=== PATIENT | female | born 1935 | race Caucasian/White ===

== ENCOUNTER 2019-05-05 10:36 | Day surgery (SDC) | payer MEDICARE, OTHER ==
[2019-05-05] VITALS (10 sets, daily range): BP systolic 100–137; BP diastolic 63–88
[~2019-05-05] VITALS: Ht 162.6 cm; Wt 49.8 kg
[2019-05-05] MEDS ORDERED: normal saline 1,000 ML IV SCH (10:55)
[2019-05-05] MEDS ORDERED: diphenhydrAMINE 25mg capsule PO PRN (10:55)
[2019-05-05] MEDS ORDERED: MULT-955 PO (11:01)
[2019-05-05 11:39] LABS: BASOPHILS # (AUTO) 0.1 X10'3 (0-0.2); EOSINOPHILS # (AUTO) 0.2 X10'3 (0-0.9); EOSINOPHILS % (AUTO) 2.6 % (0-6); HEMATOCRIT 39.2 % (35.0-45.0); HEMOGLOBIN 13.1 g/dl (12.0-16.0); LYMPHOCYTES # (AUTO) 1.2 X10'3 (1.1-4.8); MEAN CORPUSCULAR HEMOGLOBIN 32.3 PG (27.0-31.0); MEAN CORPUSCULAR HGB CONC 33.5 g/dL (33.0-36.5); MEAN CORPUSCULAR VOLUME 96.5 FL (78-98); MEAN PLATELET VOLUME 9.6 FL (7.4-10.4); MONOCYTES # (AUTO) 0.6 X10'3 (0-0.9); MONOCYTES % (AUTO) 9.3 % (2-12); NEUTROPHILS # (AUTO) 4.2 X10'3 (1.8-7.7); NEUTROPHILS % (AUTO) 67.1 % (42-75); PLATELET COUNT 157 X10'3 (140-440); RED BLOOD COUNT 4.06 X10'6 (4.20-5.60); RED CELL DISTRIBUTION WIDTH 14.1 % (11.5-14.5); WHITE BLOOD COUNT 6.3 X10'3 (4.5-11.0)
[2019-05-05 11:51] LABS: ALBUMIN 4.2 G/DL (3.4-5.0); ANION GAP 12 (8-16); BLOOD UREA NITROGEN 25 MG/DL (7-18); BUN/CREATININE RATIO 30.1 (6.6-38.0); CALCIUM 9.6 MG/DL (8.5-10.1); CHLORIDE 105 MMOL/L (99-107); CREATININE 0.83 MG/DL (0.40-0.90); GLUCOSE 90 MG/DL (70-104); MAGNESIUM 1.9 MG/DL (1.5-2.4); POTASSIUM 4.3 MMOL/L (3.5-5.1); SODIUM 142 MMOL/L (135-145); TOTAL CARBON DIOXIDE 25.4 MMOL/L (24-32); eGFR 66 ML/MIN
[2019-05-05] MEDS ORDERED: fentaNYL/PF 50MCG/1 ML 2ML syringe ONE ×2 (12:27→13:00)
[2019-05-05] MEDS ORDERED: midazolam 2 mg/2 ml injection ONE ×2 (12:27→13:00)
[2019-05-05] MEDS ORDERED: iohexol 350 MG/ML 50ML vial IV ONE (12:28)
[2019-05-05] MEDS ORDERED: LIDOcaine 1% 30ml preserv. free vial ONE (12:28)
[2019-05-05] MEDS ORDERED: iohexol 350MG/ML 100ml bottle IV ONE (12:28)
[2019-05-05] MEDS ORDERED: heparin 1,000unit/ml 10ml vial 10 ML ONE (13:18)
[2019-05-05] MEDS ORDERED: iohexol 350 MG/1 ML 200ml bottle ONE (13:36)
[2019-05-05] MEDS ORDERED: nitroGLYCERIN-Tridil 50MG/D5W 250 ML IV ONE (13:47)
[2019-05-05] MEDS ORDERED: verapamil 2.5 mg/ml inj IV ONE (13:50)
[2019-05-05] MEDS ORDERED: ticagrelor 90mg tablet ONE (13:55)
== END 2019-05-05 19:00 | disposition home or self-care (01) ==
LOC: SSTAY O 10:36
PROVIDERS: ATTEND Internal Medicine Cardiovascular Disease
DX: I35.0 Nonrheumatic aortic (valve) stenosis (principal); I25.10 Atherosclerotic heart disease of native coronary artery without angina pectoris; I05.0 Rheumatic mitral stenosis; Z87.891 Personal history of nicotine dependence; Z98.890 Other specified postprocedural states; Z72.89 Other problems related to lifestyle; Z79.899 Other long term (current) drug therapy
CPT/HCPCS: 36415; 80048; 83735; 85025; 85610; 93005; 93460; 99152; 99153; C1760; C1769; C1874; C1894; C9600; J1644; J2001; J2250; J3010; J7030; Q0163; Q9967; A4620; A6258; A6449; J3490

== ENCOUNTER 2020-02-06 08:23 | Day surgery (SDC) | payer MEDICARE ==
[~2020-02-06] VITALS: Ht 162.6 cm; Wt 49.2 kg
[2020-02-06] VITALS (15 sets, daily range): BP systolic 125–153; BP diastolic 68–81
[~2020-02-06 08:23] MED LIST: MULT-955 PO
[2020-02-06] MEDS ORDERED: normal saline 1,000 ML IV SCH ×2 (08:45→11:55)
[2020-02-06] MEDS ORDERED: diphenhydrAMINE 25mg capsule PO PRN (08:45)
[2020-02-06] MEDS ORDERED: LIDOcaine 1% (10mg/ml)w/preservative injection 20ml MDV ONE (09:03)
[2020-02-06] MEDS ORDERED: iohexol 350MG/ML 100ml bottle IV ONE ×2 (09:03→10:18)
[2020-02-06] MEDS ORDERED: heparin 1,000unit/ml 10ml vial 10 ML ONE (09:03)
[2020-02-06] MEDS ORDERED: midazolam 2 mg/2 ml injection ONE ×3 (09:03→10:07)
[2020-02-06] MEDS ORDERED: fentaNYL/PF 50MCG/1 ML 2ML syringe ONE ×3 (09:03→11:12)
[2020-02-06 09:15] LABS: BASOPHILS # (AUTO) 0.1 X10'3 (0-0.2); BASOPHILS % (AUTO) 1.3 % (0-1); EOSINOPHILS # (AUTO) 0.2 X10'3 (0-0.9); EOSINOPHILS % (AUTO) 3.3 % (0-6); HEMATOCRIT 39.8 % (35.0-45.0); HEMOGLOBIN 13.1 g/dl (12.0-16.0); LYMPHOCYTES # (AUTO) 1.6 X10'3 (1.1-4.8); LYMPHOCYTES % (AUTO) 23.4 % (21-51); MEAN CORPUSCULAR HGB CONC 32.9 g/dL (33.0-36.5); MEAN CORPUSCULAR VOLUME 100.1 FL (78-98); MEAN PLATELET VOLUME 8.9 FL (7.4-10.4); MONOCYTES # (AUTO) 0.7 X10'3 (0-0.9); MONOCYTES % (AUTO) 10.9 % (2-12); NEUTROPHILS # (AUTO) 4.2 X10'3 (1.8-7.7); NEUTROPHILS % (AUTO) 61.1 % (42-75); PLATELET COUNT 180 X10'3 (140-440); RED BLOOD COUNT 3.97 X10'6 (4.20-5.60); RED CELL DISTRIBUTION WIDTH 14.7 % (11.5-14.5); WHITE BLOOD COUNT 6.8 X10'3 (4.5-11.0)
[2020-02-06] MEDS ORDERED: CLOP75TA15 PO (09:20)
[2020-02-06] MEDS ORDERED: MEDR2.5T7 PO (09:21)
[2020-02-06 09:23] LABS: ALBUMIN 4.1 G/DL (3.4-5.0); ANION GAP 8 (8-16); BLOOD UREA NITROGEN 16 MG/DL (7-18); BUN/CREATININE RATIO 15.2 (6.6-38.0); CALCIUM 9.5 MG/DL (8.5-10.1); CHLORIDE 108 MMOL/L (99-107); CREATININE 1.05 MG/DL (0.40-0.90); GLUCOSE 95 MG/DL (70-104); MAGNESIUM 1.9 MG/DL (1.5-2.4); POTASSIUM 4.9 MMOL/L (3.5-5.1); SODIUM 144 MMOL/L (135-145); TOTAL CARBON DIOXIDE 27.6 MMOL/L (24-32); eGFR 50 ML/MIN
[2020-02-06] MEDS ORDERED: proCHLORperazine 10 MG/2 ml inj ONE (10:07)
[2020-02-06] MEDS ORDERED: clopidogrel 300mg tablet ONE (11:17)
[2020-02-06] MEDS ORDERED: nitroGLYCERIN 0.4mg SUBLingual tab SL ONE (11:28)
[2020-02-06] MEDS ORDERED: proCHLORperazine 10 MG/2 ml inj IV PRN (12:00)
[2020-02-06] MEDS ORDERED: HYDROcodone/acetaminophen 5mg/325mg tablet PO PRN (12:00)
[2020-02-06] MEDS ORDERED: HYDROcodone/acetaminophen 10/325mg tab PO PRN (12:00)
[2020-02-06] MEDS ORDERED: ondansetron/PF 4mg/2ml inj IV PRN (12:00)
== END 2020-02-06 17:50 | disposition home or self-care (01) ==
LOC: SSTAY O 08:23
PROVIDERS: ATTEND Internal Medicine Cardiovascular Disease
DX: I70.213 Atherosclerosis of native arteries of extremities with intermittent claudication, bilateral legs (principal); I25.10 Atherosclerotic heart disease of native coronary artery without angina pectoris; I48.0 Paroxysmal atrial fibrillation; I44.7 Left bundle-branch block, unspecified; I35.0 Nonrheumatic aortic (valve) stenosis; E78.5 Hyperlipidemia, unspecified; Z95.2 Presence of prosthetic heart valve; Z95.5 Presence of coronary angioplasty implant and graft; Z79.899 Other long term (current) drug therapy; Z79.82 Long term (current) use of aspirin; Z79.01 Long term (current) use of anticoagulants; Z98.890 Other specified postprocedural states; Z87.891 Personal history of nicotine dependence; Z72.89 Other problems related to lifestyle; Z82.3 Family history of stroke; Z80.41 Family history of malignant neoplasm of ovary
CPT/HCPCS: 36415; 37226; 75716; 80048; 83735; 85025; 85610; 93005; 99152; 99153; C1725; C1760; C1769; C1876; C1887; C1894; J0780; J1644; J2001; J2250; J3010; J7030; Q0163; Q9967; 36247; 75630; A4620; A6258; C2623

== ENCOUNTER → 2020-08-20 | Day surgery (SDC) | payer MEDICARE ==
[~2020-08-20] VITALS: Ht 175.3 cm; Wt 44.9 kg
[2020-08-20] VITALS (11 sets, daily range): BP systolic 124–138; BP diastolic 59–70
[~2020-08-20] MED LIST changes: +CLOP75TA15 PO; +ESTR-42 PO; +FLU VACC QS2020-21(6MOS UP)/PF 60 MCG/0.5 ML SYRINGE IMVAC ONE; +FURO-149 PO; +FURO40TA4 PO; +HYDROcodone/acetaminophen 10/325mg tab PO PRN; +HYDROcodone/acetaminophen 5mg/325mg tablet PO PRN; +IBUP-860 PO; +LIDOcaine 1% (10mg/ml)w/preservative injection 20ml MDV ONE; +POTA-82; +POTA20TA19 PO; +clopidogrel 300mg tablet ONE; +diphenhydrAMINE 25mg capsule PO PRN; +fentaNYL/PF 50MCG/1 ML 2ML syringe ONE; +heparin 1,000unit/ml 10ml vial 10 ML ONE; +iohexol 350MG/ML 100ml bottle IV ONE; +midazolam 1 mg/ML 2ml injection ONE; +normal saline 1,000 ML IV SCH; +ondansetron/PF 4mg/2ml inj IV PRN; +pneumococcal 23-VAL P-sac vacc 25 mcg/0.5ml vial IMVAC ONE; +proCHLORperazine 10 MG/2 ml inj IV PRN; +protamine sulfate 10mg/ml inj. ONE
[2020-08-20 09:35] LABS: BASOPHILS # (AUTO) 0.1 X10'3 (0-0.2); BASOPHILS % (AUTO) 1.4 % (0-1); EOSINOPHILS # (AUTO) 0.4 X10'3 (0-0.9); EOSINOPHILS % (AUTO) 5.4 % (0-6); HEMATOCRIT 36.2 % (35.0-45.0); HEMOGLOBIN 11.9 g/dl (12.0-16.0); LYMPHOCYTES # (AUTO) 1.7 X10'3 (1.1-4.8); LYMPHOCYTES % (AUTO) 24.2 % (21-51); MEAN CORPUSCULAR HEMOGLOBIN 31.7 PG (27.0-31.0); MEAN CORPUSCULAR HGB CONC 32.9 g/dL (33.0-36.5); MEAN CORPUSCULAR VOLUME 96.4 FL (78-98); MEAN PLATELET VOLUME 9.1 FL (7.4-10.4); MONOCYTES # (AUTO) 0.8 X10'3 (0-0.9); MONOCYTES % (AUTO) 11.2 % (2-12); NEUTROPHILS # (AUTO) 4.2 X10'3 (1.8-7.7); NEUTROPHILS % (AUTO) 57.8 % (42-75); PLATELET COUNT 197 X10'3 (140-440); RED BLOOD COUNT 3.75 X10'6 (4.20-5.60); RED CELL DISTRIBUTION WIDTH 14.5 % (11.5-14.5); WHITE BLOOD COUNT 7.2 X10'3 (4.5-11.0)
[2020-08-20 10:09] LABS: ALBUMIN 3.7 G/DL (3.4-5.0); ANION GAP 10 (8-16); BLOOD UREA NITROGEN 33 MG/DL (7-18); BUN/CREATININE RATIO 41.3 (6.6-38.0); CALCIUM 9.4 MG/DL (8.5-10.1); CHLORIDE 105 MMOL/L (99-107); GLUCOSE 86 MG/DL (70-104); SODIUM 142 MMOL/L (135-145); TOTAL CARBON DIOXIDE 26.6 MMOL/L (24-32); eGFR 69 ML/MIN
[2020-08-20 10:12] LABS: POTASSIUM 4.5 MMOL/L (3.5-5.1)
== END | disposition home or self-care (01) ==
LOC: SSTAY O 07:47
PROVIDERS: ATTEND Internal Medicine Cardiovascular Disease
DX: I70.202 Unspecified atherosclerosis of native arteries of extremities, left leg (principal); I48.91 Unspecified atrial fibrillation; I25.2 Old myocardial infarction; Z79.01 Long term (current) use of anticoagulants; Z98.890 Other specified postprocedural states; Z79.899 Other long term (current) drug therapy
CPT/HCPCS: 36415; 37226; 75710; 80048; 83735; 85025; 85610; 93005; 99152; 99153; C1725; C1760; C1769; C1876; C1894; J1644; J2001; J2250; J2720; J3010; Q9967; A4620; A6258; C2623

== ENCOUNTER 2020-12-17 06:21 | Day surgery (SDC) | payer MEDICARE ==
[~2020-12-17] VITALS: Ht 162.6 cm; Wt 51.4 kg
[2020-12-17] VITALS (11 sets, daily range): BP systolic 109–138; BP diastolic 42–61
[~2020-12-17 06:21] MED LIST changes: -ESTR-42 PO; -FLU VACC QS2020-21(6MOS UP)/PF 60 MCG/0.5 ML SYRINGE IMVAC ONE; -FURO40TA4 PO; -HYDROcodone/acetaminophen 10/325mg tab PO PRN; -HYDROcodone/acetaminophen 5mg/325mg tablet PO PRN; -IBUP-860 PO; -LIDOcaine 1% (10mg/ml)w/preservative injection 20ml MDV ONE; -MULT-955 PO; -POTA20TA19 PO; -clopidogrel 300mg tablet ONE; -diphenhydrAMINE 25mg capsule PO PRN; -fentaNYL/PF 50MCG/1 ML 2ML syringe ONE; -heparin 1,000unit/ml 10ml vial 10 ML ONE; -iohexol 350MG/ML 100ml bottle IV ONE; -midazolam 1 mg/ML 2ml injection ONE; -normal saline 1,000 ML IV SCH; -ondansetron/PF 4mg/2ml inj IV PRN; -pneumococcal 23-VAL P-sac vacc 25 mcg/0.5ml vial IMVAC ONE; -proCHLORperazine 10 MG/2 ml inj IV PRN; -protamine sulfate 10mg/ml inj. ONE
[2020-12-17] MEDS ORDERED: normal saline 1,000 ML IV SCH ×2 (06:55→09:20)
[2020-12-17] MEDS ORDERED: diphenhydrAMINE 25mg capsule PO PRN (06:55)
[2020-12-17] MEDS ORDERED: MULT-1085 PO (07:18)
[2020-12-17] MEDS ORDERED: RIVA2.5T PO (07:18)
[2020-12-17] MEDS ORDERED: ATOR40TA PO (07:18)
[2020-12-17 07:28] LABS: BASOPHILS # (AUTO) 0.1 X10'3 (0-0.2); BASOPHILS % (AUTO) 1.1 % (0-1); EOSINOPHILS # (AUTO) 0.4 X10'3 (0-0.9); EOSINOPHILS % (AUTO) 4.7 % (0-6); HEMATOCRIT 36.9 % (35.0-45.0); HEMOGLOBIN 12.2 g/dl (12.0-16.0); LYMPHOCYTES % (AUTO) 25.1 % (21-51); MEAN CORPUSCULAR HEMOGLOBIN 32.2 PG (27.0-31.0); MEAN CORPUSCULAR VOLUME 97.7 FL (78-98); MEAN PLATELET VOLUME 9.3 FL (7.4-10.4); MONOCYTES # (AUTO) 0.9 X10'3 (0-0.9); MONOCYTES % (AUTO) 10.8 % (2-12); NEUTROPHILS # (AUTO) 4.6 X10'3 (1.8-7.7); NEUTROPHILS % (AUTO) 58.3 % (42-75); PLATELET COUNT 179 X10'3 (140-440); RED BLOOD COUNT 3.78 X10'6 (4.20-5.60); WHITE BLOOD COUNT 7.9 X10'3 (4.5-11.0)
[2020-12-17 07:36] LABS: ALBUMIN 3.7 G/DL (3.4-5.0); ANION GAP 11 (8-16); BLOOD UREA NITROGEN 30 MG/DL (7-18); BUN/CREATININE RATIO 34.5 (6.6-38.0); CALCIUM 8.9 MG/DL (8.5-10.1); CHLORIDE 107 MMOL/L (99-107); CREATININE 0.87 MG/DL (0.40-0.90); GLUCOSE 88 MG/DL (70-104); MAGNESIUM 1.9 MG/DL (1.5-2.4); POTASSIUM 3.6 MMOL/L (3.5-5.1); SODIUM 143 MMOL/L (135-145); eGFR 62 ML/MIN
[2020-12-17] MEDS ORDERED: fentaNYL/PF 50MCG/1 ML 2ML syringe ONE (08:08)
[2020-12-17] MEDS ORDERED: midazolam 1 mg/ML 2ml injection ONE ×2 (08:08→08:30)
[2020-12-17] MEDS ORDERED: proCHLORperazine 10 MG/2 ml inj ONE (08:08)
[2020-12-17] MEDS ORDERED: heparin 1,000unit/ml 10ml vial 10 ML ONE (08:09)
[2020-12-17] MEDS ORDERED: iohexol 350 MG/1 ML 200ml bottle ONE (08:09)
[2020-12-17] MEDS ORDERED: LIDOcaine 1% (10mg/ml)w/preservative injection 20ml MDV ONE (08:09)
[2020-12-17] MEDS ORDERED: HYDROcodone/acetaminophen 10/325mg tab PO PRN (09:20)
[2020-12-17] MEDS ORDERED: HYDROcodone/acetaminophen 5mg/325mg tablet PO PRN (09:20)
[2020-12-17] MEDS ORDERED: ondansetron/PF 4mg/2ml inj IV PRN (09:20)
[2020-12-17] MEDS ORDERED: proCHLORperazine 10 MG/2 ml inj IV PRN (09:20)
== END 2020-12-17 13:50 | disposition home or self-care (01) ==
LOC: SSTAY O 06:21
PROVIDERS: ATTEND Internal Medicine Cardiovascular Disease
DX: I70.212 Atherosclerosis of native arteries of extremities with intermittent claudication, left leg (principal); I25.10 Atherosclerotic heart disease of native coronary artery without angina pectoris; E78.5 Hyperlipidemia, unspecified; I48.91 Unspecified atrial fibrillation; I05.0 Rheumatic mitral stenosis; I44.7 Left bundle-branch block, unspecified; Z87.891 Personal history of nicotine dependence; Z72.89 Other problems related to lifestyle; Z79.899 Other long term (current) drug therapy; Z79.01 Long term (current) use of anticoagulants; Z79.82 Long term (current) use of aspirin; Z98.890 Other specified postprocedural states; Z95.2 Presence of prosthetic heart valve; Z82.3 Family history of stroke; Z80.41 Family history of malignant neoplasm of ovary; Z83.6 Family history of other diseases of the respiratory system
CPT/HCPCS: 36415; 37224; 75716; 80048; 83735; 85025; 85610; 93005; 99152; 99153; C1760; C1769; C1894; J0780; J1644; J2001; J2250; J3010; Q0163; Q9967; 36200; 37220; A4620; A6258; C2623

== ENCOUNTER 2021-05-12 17:42 | Emergency (ER) | payer MEDICARE ==
[~2021-05-12] VITALS: Ht 162.6 cm; Wt 53.6 kg
[~2021-05-12 17:42] MED LIST changes: +AMIO200T67 PO; +ASPI-1265 PO; +ATOR40TA PO; +CARCD120C PO; +MULT-1085 PO; -POTA-82; +POTA-82 PO; +RIVA2.5T PO
[2021-05-12 18:28] LABS: BASOPHILS # (AUTO) 0.1 X10'3 (0-0.2); BASOPHILS % (AUTO) 0.9 % (0-1); EOSINOPHILS # (AUTO) 0.1 X10'3 (0-0.9); EOSINOPHILS % (AUTO) 1.5 % (0-6); HEMATOCRIT 33.5 % (35.0-45.0); HEMOGLOBIN 11.1 g/dl (12.0-16.0); LYMPHOCYTES # (AUTO) 1.7 X10'3 (1.1-4.8); LYMPHOCYTES % (AUTO) 20.7 % (21-51); MEAN CORPUSCULAR HEMOGLOBIN 31.3 PG (27.0-31.0); MEAN CORPUSCULAR HGB CONC 33.1 g/dL (33.0-36.5); MEAN CORPUSCULAR VOLUME 94.5 FL (78-98); MEAN PLATELET VOLUME 9.8 FL (7.4-10.4); MONOCYTES # (AUTO) 0.9 X10'3 (0-0.9); MONOCYTES % (AUTO) 10.9 % (2-12); NEUTROPHILS # (AUTO) 5.5 X10'3 (1.8-7.7); PLATELET COUNT 183 X10'3 (140-440); RED BLOOD COUNT 3.55 X10'6 (4.20-5.60); RED CELL DISTRIBUTION WIDTH 14.8 % (11.5-14.5); WHITE BLOOD COUNT 8.4 X10'3 (4.5-11.0)
[2021-05-12 18:46] LABS: ALANINE AMINOTRANSFERASE 58 U/L (12-78); ALBUMIN 4.1 G/DL (3.4-5.0); ALBUMIN/GLOBULIN RATIO 1.2 (1.1-1.5); ALKALINE PHOSPHATASE 89 IU/L (46-116); ANION GAP 11 (8-16); ASPARTATE AMINO TRANSFERASE 44 U/L (10-37); BILIRUBIN,TOTAL 0.6 MG/DL (0.1-1.0); BLOOD UREA NITROGEN 59 MG/DL (7-18); BUN/CREATININE RATIO 37.3 (6.6-38.0); CALCIUM 8.9 MG/DL (8.5-10.1); CHLORIDE 104 MMOL/L (99-107); CREATININE 1.58 MG/DL (0.40-0.90); GLUCOSE 104 MG/DL (70-104); POTASSIUM 4.5 MMOL/L (3.5-5.1); SODIUM 140 MMOL/L (135-145); TOTAL PROTEIN 7.4 G/DL (6.4-8.2); eGFR 31 ML/MIN
[2021-05-12 18:53] LABS: MAGNESIUM 2.4 MG/DL (1.5-2.4)
[2021-05-12] MEDS ORDERED: normal saline 1000ml 1,000 ML IV ONE (19:00)
[2021-05-12 20:58] VITALS: BP 124/53
[2021-05-13] MEDS ORDERED: DILT120C88 PO (16:38)
[2021-05-13] MEDS ORDERED: AMIO200T61 PO (16:38)
== END 2021-05-12 20:59 | disposition home or self-care (01) ==
LOC: ER 17:43
DX: R55 Syncope and collapse (principal); R42 Dizziness and giddiness; R00.1 Bradycardia, unspecified; Z90.89 Acquired absence of other organs; Z79.82 Long term (current) use of aspirin; Z79.899 Other long term (current) drug therapy
CPT/HCPCS: 36415; 80053; 83735; 83880; 84443; 84484; 85025; 93005; 96360; 99284; J7030

== ENCOUNTER 2022-04-01 13:20 | Inpatient (IN) | payer MEDICARE ==
[~2022-04-01] VITALS: Ht 162.6 cm; Wt 47.7 kg
[~2022-04-01 13:20] MED LIST changes: +ALBU8.5H17 IH; +AMIO200T61 PO; -AMIO200T67 PO; -ASPI-1265 PO; -ATOR40TA PO; +ATOR40TA72 PO; -CARCD120C PO; +CEFU500T66 PO; +DEXL30CA3 PO; +FERR325T7 PO; -FURO-149 PO; +FURO40TA4 PO; +LISI2.5T14 PO; +METO5TAB7 PO; -MULT-1085 PO; +PREG75CA75 PO; -RIVA2.5T PO; +UBIQ100C2 PO
[2022-04-01 14:31] LABS: BASOPHILS # (AUTO) 0.1 X10'3 (0-0.2); BASOPHILS % (AUTO) 0.4 % (0-1); EOSINOPHILS % (AUTO) 0.1 % (0-6); HEMATOCRIT 40.1 % (35.0-45.0); HEMOGLOBIN 13.6 g/dl (12.0-16.0); LYMPHOCYTES # (AUTO) 0.4 X10'3 (1.1-4.8); LYMPHOCYTES % (AUTO) 2.3 % (21-51); MEAN CORPUSCULAR HEMOGLOBIN 32.7 PG (27.0-31.0); MEAN CORPUSCULAR HGB CONC 33.8 g/dL (33.0-36.5); MEAN CORPUSCULAR VOLUME 96.5 FL (78-98); MEAN PLATELET VOLUME 8.7 FL (7.4-10.4); MONOCYTES # (AUTO) 1.7 X10'3 (0-0.9); MONOCYTES % (AUTO) 9.3 % (2-12); NEUTROPHILS # (AUTO) 16.5 X10'3 (1.8-7.7); NEUTROPHILS % (AUTO) 87.9 % (42-75); PLATELET COUNT 231 X10'3 (140-440); RED BLOOD COUNT 4.16 X10'6 (4.20-5.60); RED CELL DISTRIBUTION WIDTH 13.9 % (11.5-14.5); WHITE BLOOD COUNT 18.7 X10'3 (4.5-11.0)
[2022-04-01] MEDS ORDERED: CefTRIAXone/D5W-Rocephin 1gm 50 ML IV ONE (14:45)
[2022-04-01] MEDS ORDERED: azithromycin/NS 500mg/250ml 250 ML IV ONE (14:50)
[2022-04-01] MEDS ORDERED: normal saline 1000ML IV soln IVB ONE ×2 (14:55→15:25)
[2022-04-01 14:57] LABS: D-DIMER 2.09 MG/L FEU (0-0.50)
[2022-04-01 15:08] LABS: ALANINE AMINOTRANSFERASE 96 U/L (12-78); ALBUMIN 3.6 G/DL (3.4-5.0); ALBUMIN/GLOBULIN RATIO 0.8 (1.1-1.5); ALKALINE PHOSPHATASE 92 IU/L (46-116); ANION GAP 15 (8-16); ASPARTATE AMINO TRANSFERASE 114 U/L (10-37); BILIRUBIN,TOTAL 1.2 MG/DL (0.1-1.0); BLOOD UREA NITROGEN 44 MG/DL (7-18); CALCIUM 9.3 MG/DL (8.5-10.1); CHLORIDE 92 MMOL/L (99-107); CREATININE 1.63 MG/DL (0.40-0.90); GLUCOSE 107 MG/DL (70-104); SODIUM 135 MMOL/L (135-145); TOTAL PROTEIN 7.9 G/DL (6.4-8.2); eGFR 30 ML/MIN
[2022-04-01 15:10] LABS: POTASSIUM 2.8 MMOL/L (3.5-5.1)
[2022-04-01] MEDS ORDERED: potassium Cl 20 mEq SR tablet PO STA (15:18)
[2022-04-01] MEDS ORDERED: potassium CL 10mEq/100ml bag 100 ML IV ONE (15:20)
[2022-04-01 15:41] LABS: MAGNESIUM 2.1 MG/DL (1.5-2.4)
[2022-04-01] MEDS ORDERED: magnesium Cl slow-release 64mg tablet PO PRN (16:45)
[2022-04-01] MEDS ORDERED: magnesium 4gm in 100ml NS 100 ML IV PRN (16:45)
[2022-04-01] MEDS ORDERED: POTASSIUM BICARB 20meq eff tab 20 MEQ TABLET.EFF PO PRN (16:45)
[2022-04-01] MEDS ORDERED: mag hydrox/Alum hydrox/simeth 30ml oral suspension PO PRN (16:45)
[2022-04-01] MEDS ORDERED: magnesium hydroxide 30ml (MOM) UD suspension PO PRN (16:45)
[2022-04-01] MEDS ORDERED: acetaminophen 325mg tablet PO PRN (16:45)
[2022-04-01] MEDS ORDERED: magnesium 2GM in 50ml NS 50 ML IV PRN (16:45)
[2022-04-01] MEDS ORDERED: PERFLUTREN PROTEIN-A MICROSPHR (Optison) 0.22 MG/ML 3ML VIAL IV ONE (16:45)
[2022-04-01] MEDS ORDERED: potassium CL 10mEq/100ml bag 100 ML IV PRN (16:45)
[2022-04-01 18:06] LABS: POTASSIUM 2.4 MMOL/L (3.5-5.1)
[2022-04-01] MEDS: albuterol 2.5 MG/3 ML nebule NEB SCH ×2 (19:59→23:36)
[2022-04-01] MEDS: K and/or MAG REPLACEMENT MC SCH (20:00)
[2022-04-01] MEDS: docusate sod 100mg capsule PO SCH (20:00)
[2022-04-01] MEDS: furosemide 10 MG/1 ML 10ml inj IV SCH (20:00)
[2022-04-01] MEDS: enoxaparin 30mg/0.3ml syringe SQ SCH (20:46)
[2022-04-02] VITALS (7 sets, daily range): BP systolic 80–115; BP diastolic 36–58
[2022-04-02] MEDS ORDERED: morphine 2 MG/ML inj. syringe IV PRN (01:00)
[2022-04-02] MEDS ORDERED: HYDROcodone/acetaminophen 5mg/325mg tablet PO PRN (01:00)
--- NOTE | 2022-04-02 01:45 | NUR ---
ivp given by er charge
[2022-04-02] MEDS: albuterol 2.5 MG/3 ML nebule NEB SCH ×6 (03:24→23:40)
[2022-04-02 07:29] LABS: BASOPHILS # (AUTO) 0.1 X10'3 (0-0.2); BASOPHILS % (AUTO) 0.3 % (0-1); EOSINOPHILS % (AUTO) 0 % (0-6); HEMATOCRIT 36.2 % (35.0-45.0); HEMOGLOBIN 12.3 g/dl (12.0-16.0); LYMPHOCYTES % (AUTO) 5.5 % (21-51); MEAN CORPUSCULAR HGB CONC 34.1 g/dL (33.0-36.5); MEAN CORPUSCULAR VOLUME 96.9 FL (78-98); MEAN PLATELET VOLUME 8.8 FL (7.4-10.4); MONOCYTES # (AUTO) 2.1 X10'3 (0-0.9); MONOCYTES % (AUTO) 11.6 % (2-12); NEUTROPHILS # (AUTO) 15.2 X10'3 (1.8-7.7); NEUTROPHILS % (AUTO) 82.6 % (42-75); PLATELET COUNT 175 X10'3 (140-440); RED BLOOD COUNT 3.74 X10'6 (4.20-5.60); RED CELL DISTRIBUTION WIDTH 14.3 % (11.5-14.5); WHITE BLOOD COUNT 18.4 X10'3 (4.5-11.0)
[2022-04-02 07:33] LABS: ALBUMIN 2.7 G/DL (3.4-5.0); ANION GAP 9 (8-16); BLOOD UREA NITROGEN 44 MG/DL (7-18); BUN/CREATININE RATIO 28.8 (6.6-38.0); CALCIUM 8.5 MG/DL (8.5-10.1); CHLORIDE 98 MMOL/L (99-107); CREATININE 1.53 MG/DL (0.40-0.90); GLUCOSE 100 MG/DL (70-104); MAGNESIUM 2.2 MG/DL (1.5-2.4); POTASSIUM 3.1 MMOL/L (3.5-5.1); SODIUM 136 MMOL/L (135-145); TOTAL CARBON DIOXIDE 29.2 MMOL/L (24-32); eGFR 32 ML/MIN
[2022-04-02] MEDS: docusate sod 100mg capsule PO SCH ×3 (07:50→19:47)
[2022-04-02] MEDS: furosemide 10 MG/1 ML 10ml inj IV SCH ×2 (07:50→19:36)
[2022-04-02] MEDS: azithromycin 250mg tablet PO SCH (07:50)
[2022-04-02] MEDS: amiodarone 200mg tablet PO SCH (07:50)
[2022-04-02] MEDS: enoxaparin 30mg/0.3ml syringe SQ SCH (07:51)
[2022-04-02 07:59] LABS: PLATELET ESTIMATE NORMAL; TOTAL CELLS COUNTED 100
[2022-04-02] MEDS: K and/or MAG REPLACEMENT MC SCH ×2 (08:00→20:00)
--- NOTE | 2022-04-02 08:58 | NUR ---
Noted pt w/ low BMI for geriatric age though current wt is fairly consistent w/ weights from over the last couple of years. Pt likely maintains this low body weight. Has historically eaten relatively well on prior admits. Addendum: 04/02/22 at [address] Amended: Links added.
[2022-04-02] MEDS: POTASSIUM BICARB 20meq eff tab 20 MEQ TABLET.EFF PO PRN ×3 (12:20→22:23)
[2022-04-02] MEDS: prednisone 10mg tablet PO SCH (12:21)
[2022-04-02] MEDS: HYDROcodone/acetaminophen 5mg/325mg tablet PO PRN (12:21)
[2022-04-02] MEDS ORDERED: FLU VACC QS2022-23(6MOS UP)/PF 60 MCG/0.5 ML SYRINGE IMVAC ONE (13:45)
[2022-04-02] MEDS: lisinopril 2.5mg tablet PO SCH (14:37)
[2022-04-02] MEDS: CefTRIAXone 2gm/D5W 50ml BAG 50 ML IV SCH (14:37)
--- NOTE | 2022-04-02 18:28 | NUR ---
Problems reprioritized. Patient report given, questions answered & plan of care reviewed with COLT Kapoor.
[2022-04-02] MEDS: potassium Cl 20 mEq SR tablet PO SCH ×2 (19:23→19:48)
[2022-04-02] MEDS: ferrous sulfate 325mg tablet PO SCH (19:24)
[2022-04-02] MEDS: atorvastatin 20mg tablet PO SCH (20:12)
--- NOTE | 2022-04-02 22:51 | NUR ---
pt in rm 3026b whit swenson has a b/p of 85/36 with automatic measurement and 82/40 with manual. leke pcu 5441.new order to give 500 iv fluid bolus . same commenced.
[2022-04-03] VITALS (25 sets, daily range): BP systolic 71–91; BP diastolic 32–50
[2022-04-03] MEDS ORDERED: DOBUTamine-DoBUTrex 500mg/D5W 250 ML IV SCH
--- NOTE | 2022-04-03 | NUR ---
pt in rm 3021e whit swenson whom you ordered iv 500 bolus for b/p of 82/40 has b/p of 80/40 after the bolus.shamar puc [id number]. Dobutamine drip ordered and placed in the emar by the MD.
[2022-04-03] MEDS: DOBUTamine-DoBUTrex 500mg/D5W 250 ML IV SCH (00:47)
[2022-04-03] MEDS ORDERED: guaiFENesin 200 MG/10 ML oral syrup UD cup PO PRN (02:55)
--- NOTE | 2022-04-03 03:02 | NUR ---
notified of pts b/p below the 90s.order to increased pts dobutanin rate from 2.846mg to 4.00mg.
--- NOTE | 2022-04-03 03:06 | NUR ---
notified of pts request for cough syrup for cough.New order to give Robitussin oral syrup prn.
[2022-04-03] MEDS: HYDROcodone/acetaminophen 5mg/325mg tablet PO PRN ×2 (03:40→21:56)
[2022-04-03] MEDS: albuterol 2.5 MG/3 ML nebule NEB SCH ×6 (03:42→23:48)
--- NOTE | 2022-04-03 05:09 | NUR ---
pt whit swenson rm 3020s who is on dobutamin drip has sustained systolic b/p that ranges from 75 to 77 with diastolic in the 30s. HR is in the 80s MD ordered proAmatin tab 10mg once ,same placed in the emar by .
[2022-04-03] MEDS ORDERED: midodrine 5mg tablet PO ONE (05:10)
[2022-04-03 05:59] LABS: ALBUMIN 2.4 G/DL (3.4-5.0); ANION GAP 7 (8-16); BLOOD UREA NITROGEN 64 MG/DL (7-18); BUN/CREATININE RATIO 23.4 (6.6-38.0); CALCIUM 8.5 MG/DL (8.5-10.1); CHLORIDE 95 MMOL/L (99-107); CREATININE 2.74 MG/DL (0.40-0.90); GLUCOSE 117 MG/DL (70-104); MAGNESIUM 2.2 MG/DL (1.5-2.4); POTASSIUM 4.3 MMOL/L (3.5-5.1); SODIUM 133 MMOL/L (135-145); TOTAL CARBON DIOXIDE 30.6 MMOL/L (24-32); eGFR 16 ML/MIN
[2022-04-03 06:02] LABS: BASOPHILS # (AUTO) 0.1 X10'3 (0-0.2); BASOPHILS % (AUTO) 0.5 % (0-1); EOSINOPHILS % (AUTO) 0.1 % (0-6); HEMATOCRIT 32.3 % (35.0-45.0); HEMOGLOBIN 10.7 g/dl (12.0-16.0); LYMPHOCYTES # (AUTO) 1.1 X10'3 (1.1-4.8); LYMPHOCYTES % (AUTO) 6.2 % (21-51); MEAN CORPUSCULAR HEMOGLOBIN 32.4 PG (27.0-31.0); MEAN CORPUSCULAR HGB CONC 33.3 g/dL (33.0-36.5); MEAN CORPUSCULAR VOLUME 97.4 FL (78-98); MEAN PLATELET VOLUME 9.5 FL (7.4-10.4); MONOCYTES # (AUTO) 1.8 X10'3 (0-0.9); MONOCYTES % (AUTO) 10.3 % (2-12); NEUTROPHILS # (AUTO) 14.1 X10'3 (1.8-7.7); NEUTROPHILS % (AUTO) 82.9 % (42-75); PLATELET COUNT 176 X10'3 (140-440); RED BLOOD COUNT 3.31 X10'6 (4.20-5.60); WHITE BLOOD COUNT 17.1 X10'3 (4.5-11.0)
[2022-04-03] MEDS: furosemide 10 MG/1 ML 10ml inj IV SCH ×2 (07:52→20:00)
[2022-04-03] MEDS: clopidogrel 75mg tablet PO SCH (07:53)
[2022-04-03] MEDS: azithromycin 250mg tablet PO SCH (07:53)
[2022-04-03] MEDS: potassium Cl 20 mEq SR tablet PO SCH ×2 (07:53→20:00)
[2022-04-03] MEDS: amiodarone 200mg tablet PO SCH (07:54)
[2022-04-03] MEDS: docusate sod 100mg capsule PO SCH ×2 (07:54→20:00)
[2022-04-03] MEDS: prednisone 10mg tablet PO SCH (07:55)
[2022-04-03] MEDS: lisinopril 2.5mg tablet PO SCH (07:55)
[2022-04-03] MEDS: pantoprazole 40mg Tablet.DR PO SCH (07:56)
[2022-04-03] MEDS: enoxaparin 30mg/0.3ml syringe SQ SCH (07:56)
[2022-04-03] MEDS: ferrous sulfate 325mg tablet PO SCH ×2 (07:56→21:10)
[2022-04-03] MEDS: K and/or MAG REPLACEMENT MC SCH ×2 (08:00→20:00)
--- NOTE | 2022-04-03 08:53 | NUR ---
Initial: Pt admitted w/ CHF exacerbation and sepsis secondary to PNA per EMR. Currently on Heart Healthy diet w/ avg intake 50% x 3 meals which is consistent w/ how pt typically eats on previous admits. Pt can benefit from Ensure Enlive BID to assist w/ meeting increased needs. No BM documented this admit, receiving routine colace. Will continue to monitor. Recs; 1. Consider Regular diet 2. Ensure Enlive BIDBD; pending MD verification 3. Bowel care per rx 4. Weekly wts Addendum: 04/03/22 at [address] Amended: Links added.
[2022-04-03] MEDS ORDERED: normal saline 500ml IV soln 500 ML IV ONE ×2 (09:00→13:40)
[2022-04-03] MEDS: normal saline 1000ml 1,000 ML IV SCH (11:33)
[2022-04-03] MEDS: ondansetron/PF 4mg/2ml inj IV PRN (11:33)
[2022-04-03] MEDS: CefTRIAXone 2gm/D5W 50ml BAG 50 ML IV SCH (13:25)
--- NOTE | 2022-04-03 13:37 | NUR ---
PAGER ID: [phone] MESSAGE: PCU 3026B [address]; negin ROJAS BP still running low: 74/36 HR:76 just now, pt was nauseous earlier but resolved esthela matos. thanks michaela [phone]
--- NOTE | 2022-04-03 15:40 | NUR ---
pt to nuc med on monitor with RN, pt is on dobutamine gtt, GCS 15, alert and oriented x3, resp even and unlabored,
[2022-04-03] MEDS: lactose-reduced food (Ensure Enlive) - 237ml bottle PO SCH (17:30)
--- NOTE | 2022-04-03 18:30 | NUR ---
Patient in room U 3026. I have received report from COLT Villalobos and had the opportunity to ask questions and assume patient care. Patient sitting up in bed eating dinner.
--- NOTE | 2022-04-03 19:08 | NUR ---
Problems reprioritized. Patient report given, questions answered & plan of care reviewed with COLT Olivo.
[2022-04-03] MEDS: atorvastatin 20mg tablet PO SCH (21:09)
[2022-04-03] MEDS: POTASSIUM BICARB 20meq eff tab 20 MEQ TABLET.EFF PO PRN (21:16)
[2022-04-04] VITALS (14 sets, daily range): BP systolic 77–105; BP diastolic 36–70
[2022-04-04] MEDS: albuterol 2.5 MG/3 ML nebule NEB SCH ×6 (03:08→23:35)
[2022-04-04] MEDS: ondansetron/PF 4mg/2ml inj IV PRN (03:15)
[2022-04-04] MEDS: normal saline 1000ml 1,000 ML IV SCH ×2 (03:19→14:31)
--- NOTE | 2022-04-04 06:00 | NUR ---
Cld Dr. Gracia as patient is nauseous and vomiting. Per MD give Compzine 10mg IV now
[2022-04-04] MEDS ORDERED: proCHLORperazine 10 MG/2 ml inj IV ONE (06:10)
--- NOTE | 2022-04-04 06:33 | NUR ---
Problems reprioritized. Patient report given, questions answered & plan of care reviewed with COLT Villalobos.
[2022-04-04 06:50] LABS: BASOPHILS % (AUTO) 0.4 % (0-1); EOSINOPHILS % (AUTO) 0.1 % (0-6); HEMATOCRIT 32.3 % (35.0-45.0); HEMOGLOBIN 10.6 g/dl (12.0-16.0); LYMPHOCYTES # (AUTO) 0.8 X10'3 (1.1-4.8); LYMPHOCYTES % (AUTO) 7.1 % (21-51); MEAN CORPUSCULAR HEMOGLOBIN 32.1 PG (27.0-31.0); MEAN CORPUSCULAR HGB CONC 32.8 g/dL (33.0-36.5); MEAN CORPUSCULAR VOLUME 97.8 FL (78-98); MEAN PLATELET VOLUME 9.9 FL (7.4-10.4); MONOCYTES # (AUTO) 1.2 X10'3 (0-0.9); MONOCYTES % (AUTO) 10.3 % (2-12); NEUTROPHILS # (AUTO) 9.4 X10'3 (1.8-7.7); NEUTROPHILS % (AUTO) 82.1 % (42-75); PLATELET COUNT 176 X10'3 (140-440); RED CELL DISTRIBUTION WIDTH 14.5 % (11.5-14.5); WHITE BLOOD COUNT 11.5 X10'3 (4.5-11.0)
[2022-04-04 07:20] LABS: ALBUMIN 2.5 G/DL (3.4-5.0); ANION GAP 9 (8-16); BLOOD UREA NITROGEN 75 MG/DL (7-18); BUN/CREATININE RATIO 23.3 (6.6-38.0); CALCIUM 8.6 MG/DL (8.5-10.1); CHLORIDE 95 MMOL/L (99-107); CREATININE 3.22 MG/DL (0.40-0.90); GLUCOSE 107 MG/DL (70-104); MAGNESIUM 2.5 MG/DL (1.5-2.4); POTASSIUM 5.4 MMOL/L (3.5-5.1); SODIUM 130 MMOL/L (135-145); TOTAL CARBON DIOXIDE 26.5 MMOL/L (24-32); eGFR 14 ML/MIN
[2022-04-04] MEDS: lactose-reduced food (Ensure Enlive) - 237ml bottle PO SCH ×2 (07:30→18:01)
[2022-04-04] MEDS: potassium Cl 20 mEq SR tablet PO SCH ×2 (08:00→20:00)
[2022-04-04] MEDS: furosemide 10 MG/1 ML 10ml inj IV SCH (08:00)
[2022-04-04] MEDS: docusate sod 100mg capsule PO SCH ×2 (08:00→20:00)
[2022-04-04] MEDS: K and/or MAG REPLACEMENT MC SCH (08:00)
[2022-04-04] MEDS: enoxaparin 30mg/0.3ml syringe SQ SCH (08:32)
[2022-04-04] MEDS: pantoprazole 40mg Tablet.DR PO SCH (09:46)
[2022-04-04] MEDS: amiodarone 200mg tablet PO SCH (09:46)
[2022-04-04] MEDS: prednisone 10mg tablet PO SCH (09:46)
[2022-04-04] MEDS: clopidogrel 75mg tablet PO SCH (09:47)
[2022-04-04] MEDS: ferrous sulfate 325mg tablet PO SCH ×2 (09:47→20:45)
[2022-04-04] MEDS: azithromycin 250mg tablet PO SCH (09:47)
[2022-04-04] MEDS ORDERED: metolazone 2.5mg tablet PO SCH (11:35)
--- NOTE | 2022-04-04 13:55 | NUR ---
PT TO CT ON MONITOR WITH RN, PT IS ON DOBUTAMINE GTT, PT IS ALERT AND ORIENTED X3, ABLE TO TRANSFER SELF WITH MIN ASSIST FROM BED TO WHEELCHAIR.
--- NOTE | 2022-04-04 14:15 | NUR ---
PT BACK TO PCU, REPORT TO PRIMARY RN
[2022-04-04] MEDS: CefTRIAXone 2gm/D5W 50ml BAG 50 ML IV SCH (15:43)
--- NOTE | 2022-04-04 18:48 | NUR ---
Problems reprioritized. Patient report given, questions answered & plan of care reviewed with COLT Day.
[2022-04-04] MEDS: atorvastatin 20mg tablet PO SCH (20:46)
[2022-04-04] MEDS: DOBUTamine-DoBUTrex 500mg/D5W 250 ML IV SCH (20:52)
[2022-04-05] VITALS (7 sets, daily range): BP systolic 102–141; BP diastolic 53–80
[2022-04-05] MEDS: HYDROcodone/acetaminophen 5mg/325mg tablet PO PRN ×2 (00:27→15:26)
[2022-04-05] MEDS: normal saline 1000ml 1,000 ML IV SCH ×2 (00:32→09:35)
[2022-04-05] MEDS: albuterol 2.5 MG/3 ML nebule NEB SCH ×6 (04:00→23:38)
[2022-04-05 06:15] LABS: BASOPHILS # (AUTO) 0.1 X10'3 (0-0.2); BASOPHILS % (AUTO) 0.8 % (0-1); EOSINOPHILS % (AUTO) 0.3 % (0-6); HEMATOCRIT 31.9 % (35.0-45.0); HEMOGLOBIN 10.6 g/dl (12.0-16.0); LYMPHOCYTES # (AUTO) 0.9 X10'3 (1.1-4.8); LYMPHOCYTES % (AUTO) 9.5 % (21-51); MEAN CORPUSCULAR HEMOGLOBIN 32.3 PG (27.0-31.0); MEAN CORPUSCULAR HGB CONC 33.1 g/dL (33.0-36.5); MEAN CORPUSCULAR VOLUME 97.8 FL (78-98); MEAN PLATELET VOLUME 9.4 FL (7.4-10.4); MONOCYTES # (AUTO) 1.3 X10'3 (0-0.9); MONOCYTES % (AUTO) 12.6 % (2-12); NEUTROPHILS # (AUTO) 7.7 X10'3 (1.8-7.7); NEUTROPHILS % (AUTO) 76.8 % (42-75); PLATELET COUNT 195 X10'3 (140-440); RED BLOOD COUNT 3.26 X10'6 (4.20-5.60); RED CELL DISTRIBUTION WIDTH 14.7 % (11.5-14.5)
--- NOTE | 2022-04-05 06:15 | NUR ---
Patient in room PCU 3026. I have received report from Shay GREGORY and had the opportunity to ask questions and assume patient care.
[2022-04-05 06:47] LABS: ALBUMIN 2.4 G/DL (3.4-5.0); ANION GAP 10 (8-16); BLOOD UREA NITROGEN 71 MG/DL (7-18); BUN/CREATININE RATIO 26.2 (6.6-38.0); CALCIUM 8.5 MG/DL (8.5-10.1); CHLORIDE 98 MMOL/L (99-107); CREATININE 2.71 MG/DL (0.40-0.90); GLUCOSE 110 MG/DL (70-104); MAGNESIUM 2.5 MG/DL (1.5-2.4); SODIUM 133 MMOL/L (135-145); TOTAL CARBON DIOXIDE 25.3 MMOL/L (24-32); eGFR 17 ML/MIN
[2022-04-05 07:27] LABS: CLARITY,URINE CLEAR (Clear); COLOR,URINE YELLOW (Yellow); GLUCOSE, URINE NEGATIVE (Neg); KETONES,URINE NEGATIVE (Neg); LEUKOCYTE ESTERASE ,URINE NEGATIVE (Neg); NITRITES, URINE NEGATIVE (Neg); OCCULT BLOOD,URINE SMALL (Neg); PH,URINE 5.5 (4.8-8.0); PROTEIN,URINE 30 mg/dl (Neg); UROBILINOGEN,URINE 0.2 E.U/dL (0.2-1.0)
[2022-04-05 07:29] LABS: OSMOLALITY UA 415 MOSM/K (50-1400)
[2022-04-05 07:32] LABS: UA COLLECTION TYPE CLN CATCH MIDSTREAM
[2022-04-05 07:44] LABS: SODIUM,URINE RANDOM < 15 MEQ/L; TOTAL PROTEIN,URINE RANDOM 119.8 MG/DL
[2022-04-05 07:46] LABS: SQUAMOUS EPITHELIAL CELL,UR FEW /LPF (FEW)
[2022-04-05 07:47] LABS: AMORPHOUS URATES 2+; COARSE GRANULAR CAST 0-3 /LPF (NEGATIVE)
[2022-04-05 07:48] LABS: BACTERIA,URINE FEW /HPF (Neg); RBC,URINE 0-2 /HPF (0-2); WBC,URINE 0-4 /HPF (0-4)
[2022-04-05 07:51] LABS: TRANSITIONAL EPI CELLS,URINE FEW /HPF
[2022-04-05] MEDS: NUT.TX.IMP.RENAL FXN,LAC-REDUC (Nepro) 237 ML VANILLA PO SCH ×3 (08:00→18:00)
[2022-04-05 08:09] LABS: UA EOSINOPHILS NO EOS /HPF
[2022-04-05] MEDS: docusate sod 100mg capsule PO SCH ×2 (09:36→19:04)
[2022-04-05] MEDS: enoxaparin 30mg/0.3ml syringe SQ SCH (09:36)
[2022-04-05] MEDS: clopidogrel 75mg tablet PO SCH (09:37)
[2022-04-05] MEDS: azithromycin 250mg tablet PO SCH (09:37)
[2022-04-05] MEDS: amiodarone 200mg tablet PO SCH (09:37)
[2022-04-05] MEDS: ferrous sulfate 325mg tablet PO SCH ×2 (09:37→19:04)
[2022-04-05] MEDS: prednisone 10mg tablet PO SCH (09:37)
[2022-04-05] MEDS ORDERED: ALPRAZolam 0.25mg tablet PO PRN (09:55)
[2022-04-05] MEDS ORDERED: LIDOcaine 1% 30ml preserv. free vial ONE (10:40)
[2022-04-05 11:53] LABS: BFSOURCE RIGHT PLEURAL FLD; PLEURAL FLUID PH 7.218 (7.63-7.65)
[2022-04-05 12:14] LABS: GLUCOSE,BODY FLUID 78 MG/DL; LDH,BODY FLUID 560 U/L; TOTAL PROTEIN,BODY FLUID 3.5 G/DL
[2022-04-05 12:25] LABS: BF RBC COUNT 4200 /CU MM; BF WBC COUNT 310 /CU MM (0-1000); BFAPPEAR CLOUDY; BFCOLOR YELLOW; BFVOLUME 46 ML
[2022-04-05 12:26] LABS: LYMPHOCYTES,BODY FLUID 42 %; MONOCYTES,BODY FLUID 24 %; NEUTROPHILS,BODY FLUID 34 %
[2022-04-05] MEDS: CefTRIAXone 2gm/D5W 50ml BAG 50 ML IV SCH (15:26)
--- NOTE | 2022-04-05 18:20 | NUR ---
Problems reprioritized. Patient report given, questions answered & plan of care reviewed with Shay GREGORY, patient stable at transfer of care.
[2022-04-05] MEDS: atorvastatin 20mg tablet PO SCH (19:04)
[2022-04-06 02:00] VITALS: BP 103/54
[2022-04-06] MEDS: HYDROcodone/acetaminophen 5mg/325mg tablet PO PRN ×2 (03:13→10:20)
[2022-04-06] MEDS: albuterol 2.5 MG/3 ML nebule NEB SCH ×4 (03:17→16:40)
[2022-04-06 06:00] VITALS: BP 116/56
[2022-04-06 07:01] LABS: BASOPHILS # (AUTO) 0.1 X10'3 (0-0.2); EOSINOPHILS # (AUTO) 0.1 X10'3 (0-0.9); EOSINOPHILS % (AUTO) 0.7 % (0-6); HEMATOCRIT 29.2 % (35.0-45.0); LYMPHOCYTES % (AUTO) 10.6 % (21-51); MEAN CORPUSCULAR HEMOGLOBIN 33.4 PG (27.0-31.0); MEAN CORPUSCULAR HGB CONC 34.3 g/dL (33.0-36.5); MEAN CORPUSCULAR VOLUME 97.4 FL (78-98); MONOCYTES # (AUTO) 1.2 X10'3 (0-0.9); MONOCYTES % (AUTO) 12.7 % (2-12); NEUTROPHILS # (AUTO) 7.1 X10'3 (1.8-7.7); PLATELET COUNT 201 X10'3 (140-440); RED BLOOD COUNT 2.99 X10'6 (4.20-5.60); RED CELL DISTRIBUTION WIDTH 14.7 % (11.5-14.5); WHITE BLOOD COUNT 9.5 X10'3 (4.5-11.0)
[2022-04-06 07:19] LABS: ALBUMIN 2.2 G/DL (3.4-5.0); ANION GAP 8 (8-16); BLOOD UREA NITROGEN 63 MG/DL (7-18); BUN/CREATININE RATIO 32.5 (6.6-38.0); CALCIUM 8.5 MG/DL (8.5-10.1); CHLORIDE 102 MMOL/L (99-107); CREATININE 1.94 MG/DL (0.40-0.90); GLUCOSE 92 MG/DL (70-104); POTASSIUM 4.6 MMOL/L (3.5-5.1); SODIUM 135 MMOL/L (135-145); TOTAL CARBON DIOXIDE 25.4 MMOL/L (24-32); eGFR 25 ML/MIN
[2022-04-06] MEDS: docusate sod 100mg capsule PO SCH (08:00)
[2022-04-06] MEDS: clopidogrel 75mg tablet PO SCH (08:39)
[2022-04-06] MEDS: ferrous sulfate 325mg tablet PO SCH (08:39)
[2022-04-06] MEDS: prednisone 10mg tablet PO SCH (08:40)
[2022-04-06] MEDS: amiodarone 200mg tablet PO SCH (08:40)
[2022-04-06] MEDS: azithromycin 250mg tablet PO SCH (08:41)
[2022-04-06] MEDS: enoxaparin 30mg/0.3ml syringe SQ SCH (08:42)
[2022-04-06] MEDS: NUT.TX.IMP.RENAL FXN,LAC-REDUC (Nepro) 237 ML VANILLA PO SCH ×3 (08:43→18:00)
[2022-04-06] MEDS: CefTRIAXone 2gm/D5W 50ml BAG 50 ML IV SCH (14:00)
[2022-04-06] MEDS ORDERED: CEFD300C3 PO (16:37)
--- NOTE | 2022-04-06 18:53 | NUR ---
Patient stable for discharge per Dr. Fisher. All discharge instructions reviewed with patient and all questions answered. Patient verbalized understanding. All new prescriptions e-scripted to [facility]. PIV discontinued, cannula inatact. Tele discontinued. All belongings collected and sent with patient. Wheeled to lobby via nursing education consultant and picked up by friend.
== END 2022-04-06 18:55 | disposition home health service (06) | DRG 871 ==
LOC: ER 13:21 → ED HOLD 16:46 → PCU 3S 04-02 05:46
PROVIDERS: ADMIT Family Medicine; ATTEND Family Medicine
PROC: CB121ZZ Planar Nuclear Medicine Imaging of Lungs and Bronchi using Technetium 99m (Tc-99m) (ICD-10-PCS; 2022-04-03)
PROC: 0W993ZZ Drainage of Right Pleural Cavity, Percutaneous Approach (ICD-10-PCS; principal; 2022-04-05)
DX: A41.9 Sepsis, unspecified organism (principal); I21.A1 Myocardial infarction type 2; J18.9 Pneumonia, unspecified organism; I50.43 Acute on chronic combined systolic (congestive) and diastolic (congestive) heart failure; N17.9 Acute kidney failure, unspecified; E87.1 Hypo-osmolality and hyponatremia; J90 Pleural effusion, not elsewhere classified; Z20.822 Contact with and (suspected) exposure to COVID-19; E87.6 Hypokalemia; I48.91 Unspecified atrial fibrillation; I73.9 Peripheral vascular disease, unspecified; N18.9 Chronic kidney disease, unspecified; D64.9 Anemia, unspecified; F41.9 Anxiety disorder, unspecified; E87.5 Hyperkalemia; Z82.3 Family history of stroke; Z90.49 Acquired absence of other specified parts of digestive tract; Z95.0 Presence of cardiac pacemaker
CPT/HCPCS: 32555; 36415; 71045; 71250; 74176; 76770; 78582; 80048; 80053; 81001; 82570; 82945; 83615; 83735; 83880; 83935; 83986; 84132; 84133; 84145; 84156; 84157; 84300; 84439; 84443; 84484; 85007; 85025; 85379; 87040; 87070; 87075; 87102; 87207; 87635; 89051; 90686; 93005; 93306; 93882; 93975; 94640; 94664; 94760; 96365; 96368; 97116; 97161; 97530; 99285; A4615; A9539; A9540; G0378; J0456; J0696; J0780; J1250; J1650; J1940; J2270; J2405; J3480; J3490; J7030; J7040; J7512

== ENCOUNTER 2022-06-19 20:01 | Emergency (ER) | payer MEDICARE ==
[~2022-06-19] VITALS: Ht 162.6 cm; Wt 50.0 kg
[~2022-06-19 20:01] MED LIST changes: -ALBU8.5H17 IH; -CEFU500T66 PO; -FURO40TA4 PO; -LISI2.5T14 PO; -METO5TAB7 PO; -POTA-82 PO; -PREG75CA75 PO; -UBIQ100C2 PO
[2022-06-19 20:09] VITALS: BP 119/50
--- NOTE | 2022-06-19 21:09 | NUR ---
Patient had left fast track, requested to leave because her is her ride home and was getting impatient, asked patient to wait a little longer, taken [place] [address] bed, MD evaluated skin tear on left arm and given wound care instructions.
[2022-06-19] MEDS ORDERED: TETanus/Pertussis (Acell)/Diphther VAC/PF (Tdap-Adult) 0.5ml syringe IMVAC ONE (21:15)
== END 2022-06-19 21:30 | disposition home or self-care (01) ==
LOC: ER 20:02
DX: S41.112A Laceration without foreign body of left upper arm, initial encounter (principal); X58.XXXA Exposure to other specified factors, initial encounter; Y93.89 Activity, other specified; Y92.89 Other specified places as the place of occurrence of the external cause; Y99.8 Other external cause status
CPT/HCPCS: 90471; 90715; 99283; A6223; A6258; A6446

== ENCOUNTER 2022-09-14 12:48 | Emergency (ER) | payer MEDICARE ==
[~2022-09-14] VITALS: Ht 162.6 cm; Wt 52.3 kg
[2022-09-14] MEDS ORDERED: acetaminophen 325mg tablet PO ONE (16:05)
[2022-09-14 19:12] VITALS: BP 121/54
== END 2022-09-14 19:15 | disposition home or self-care (01) ==
LOC: ER 12:49
DX: S20.212A Contusion of left front wall of thorax, initial encounter (principal); S70.02XA Contusion of left hip, initial encounter; S70.01XA Contusion of right hip, initial encounter; S60.221A Contusion of right hand, initial encounter; S80.212A Abrasion, left knee, initial encounter; S80.211A Abrasion, right knee, initial encounter; Z90.49 Acquired absence of other specified parts of digestive tract; Z95.0 Presence of cardiac pacemaker; Z79.899 Other long term (current) drug therapy; W18.39XA Other fall on same level, initial encounter; Y93.89 Activity, other specified; Y92.89 Other specified places as the place of occurrence of the external cause; Y99.8 Other external cause status
CPT/HCPCS: 71045; 73130; 73502; 73552; 73560; 99284

== ENCOUNTER 2022-12-12 17:11 | Emergency (ER) | payer MEDICARE ==
[~2022-12-12] VITALS: Ht 162.6 cm; Wt 60.0 kg
[~2022-12-12 17:11] MED LIST changes: +AMI200T PO; -AMIO200T61 PO; +BISO5TAB29 PO; +CHOL100046 PO; -CLOP75TA15 PO; +DAPA10TA PO; -DEXL30CA3 PO; +FURO-150 PO; +OSC500T PO; +PANT40TA54 PO; +RIVA15TA PO; +SACU1TAB PO; +SPIR25TA5 PO; +VITA-268 PO
[2022-12-12 18:00] LABS: EOSINOPHILS # (AUTO) 0.2 X10'3 (0-0.9); HEMOGLOBIN 11.2 g/dl (12.0-16.0); LYMPHOCYTES # (AUTO) 1.2 X10'3 (1.1-4.8); MONOCYTES # (AUTO) 0.8 X10'3 (0-0.9)
[2022-12-12 18:01] LABS: BASOPHILS # (AUTO) 0.1 X10'3 (0-0.2); BASOPHILS % (AUTO) 1.4 % (0-1); EOSINOPHILS % (AUTO) 2.5 % (0-6); HEMATOCRIT 33.9 % (35.0-45.0); MEAN CORPUSCULAR HEMOGLOBIN 34.7 PG (27.0-31.0); MEAN CORPUSCULAR HGB CONC 33.1 g/dL (33.0-36.5); MEAN CORPUSCULAR VOLUME 104.7 FL (78-98); MEAN PLATELET VOLUME 9.1 FL (7.4-10.4); MONOCYTES % (AUTO) 11.7 % (2-12); NEUTROPHILS # (AUTO) 4.5 X10'3 (1.8-7.7); NEUTROPHILS % (AUTO) 66.4 % (42-75); PLATELET COUNT 174 X10'3 (140-440); RED BLOOD COUNT 3.24 X10'6 (4.20-5.60); RED CELL DISTRIBUTION WIDTH 15.8 % (11.5-14.5); WHITE BLOOD COUNT 6.7 X10'3 (4.5-11.0)
[2022-12-12 18:19] LABS: ALANINE AMINOTRANSFERASE 48 U/L (12-78); ALBUMIN 4.2 G/DL (3.4-5.0); ALBUMIN/GLOBULIN RATIO 1.3 (1.1-1.5); ALKALINE PHOSPHATASE 77 IU/L (46-116); ANION GAP 11 (8-16); ASPARTATE AMINO TRANSFERASE 54 U/L (10-37); BILIRUBIN,TOTAL 0.5 MG/DL (0.1-1.0); BLOOD UREA NITROGEN 51 MG/DL (7-18); BUN/CREATININE RATIO 26.3 (10.0-20.0); CHLORIDE 101 MMOL/L (99-107); CREATININE 1.94 MG/DL (0.40-0.90); GLUCOSE 99 MG/DL (70-104); POTASSIUM 4.3 MMOL/L (3.5-5.1); SODIUM 138 MMOL/L (135-145); TOTAL CARBON DIOXIDE 26.1 MMOL/L (24-32); TOTAL PROTEIN 7.5 G/DL (6.4-8.2); eGFR 25 ML/MIN
[2022-12-12 18:51] VITALS: BP 129/54
== END 2022-12-12 19:00 | disposition home or self-care (01) ==
LOC: ER 17:12
DX: I11.0 Hypertensive heart disease with heart failure (principal); E78.00 Pure hypercholesterolemia, unspecified; Z90.49 Acquired absence of other specified parts of digestive tract; Z79.899 Other long term (current) drug therapy
CPT/HCPCS: 36415; 71045; 80053; 83880; 84484; 85025; 93005; 99285

== ENCOUNTER 2023-01-09 09:54 | Day surgery (SDC) | payer MEDICARE ==
[~2023-01-09] VITALS: Ht 160 cm; Wt 53.3 kg
[2023-01-09] VITALS (18 sets, daily range): BP systolic 108–163; BP diastolic 43–75; PULSE 59–91; RESP 12–24; TEMP 98.2; O2SAT 77–99
[2023-01-09] MEDS ORDERED: MIDAZolam 1mg/ml 10ml vial IV ONE (10:25)
[2023-01-09] MEDS ORDERED: fentaNYL/PF 50MCG/1 ML 2ML syringe IV ONE (10:25)
[2023-01-09] MEDS ORDERED: POTA-366 PO (10:46)
[2023-01-09] MEDS ORDERED: FURO20TA4 PO (10:46)
[2023-01-09] MEDS ORDERED: RIVA15TA PO (10:47)
[2023-01-09 10:53] LABS: BASOPHILS % (AUTO) 0.6 % (0-1); EOSINOPHILS # (AUTO) 0.2 X10'3 (0-0.9); EOSINOPHILS % (AUTO) 3.3 % (0-6); HEMATOCRIT 33.3 % (35.0-45.0); LYMPHOCYTES # (AUTO) 0.9 X10'3 (1.1-4.8); LYMPHOCYTES % (AUTO) 13.5 % (21-51); MEAN CORPUSCULAR HGB CONC 33.2 g/dL (33.0-36.5); MEAN CORPUSCULAR VOLUME 102.4 FL (78-98); MEAN PLATELET VOLUME 8.1 FL (7.4-10.4); MONOCYTES # (AUTO) 0.7 X10'3 (0-0.9); MONOCYTES % (AUTO) 10.4 % (2-12); NEUTROPHILS # (AUTO) 4.6 X10'3 (1.8-7.7); NEUTROPHILS % (AUTO) 72.2 % (42-75); PLATELET COUNT 232 X10'3 (140-440); RED BLOOD COUNT 3.25 X10'6 (4.20-5.60); RED CELL DISTRIBUTION WIDTH 14.1 % (11.5-14.5); WHITE BLOOD COUNT 6.4 X10'3 (4.5-11.0)
[2023-01-09 11:04] LABS: ANION GAP 13 (8-16); BLOOD UREA NITROGEN 47 MG/DL (7-18); BUN/CREATININE RATIO 24.7 (10.0-20.0); CALCIUM 9.3 MG/DL (8.5-10.1); CHLORIDE 101 MMOL/L (99-107); GLUCOSE 99 MG/DL (70-104); POTASSIUM 3.8 MMOL/L (3.5-5.1); SODIUM 141 MMOL/L (135-145); TOTAL CARBON DIOXIDE 26.8 MMOL/L (24-32); eGFR 25 ML/MIN
[2023-01-09 11:07] LABS: APTT 38 SECONDS (22-32)
[2023-01-09] MEDS ORDERED: normal saline 1000ml 1,000 ML IV SCH (11:30)
== END 2023-01-09 15:30 | disposition home or self-care (01) ==
LOC: SSTAY O 09:54
PROVIDERS: ATTEND Student in an Organized Health Care Education/Training Program
DX: Z45.09 Encounter for adjustment and management of other cardiac device (principal); I48.91 Unspecified atrial fibrillation; I35.0 Nonrheumatic aortic (valve) stenosis; I13.0 Hypertensive heart and chronic kidney disease with heart failure and stage 1 through stage 4 chronic kidney disease, or unspecified chronic kidney disease; N18.9 Chronic kidney disease, unspecified; I50.9 Heart failure, unspecified; I49.5 Sick sinus syndrome; Z95.0 Presence of cardiac pacemaker; Z95.2 Presence of prosthetic heart valve; Z95.5 Presence of coronary angioplasty implant and graft; Z79.899 Other long term (current) drug therapy
CPT/HCPCS: 36415; 80048; 85025; 85610; 85730; 93312; 93325; 94760; J2250; J3010; J7030

== ENCOUNTER 2023-02-22 12:22 | Inpatient (IN) | payer MEDICARE ==
[~2023-02-22] VITALS: Ht 168.9 cm; Wt 65.8 kg
[~2023-02-22 12:22] MED LIST changes: -DAPA10TA PO; -FURO-150 PO; +FURO20TA4 PO; -PANT40TA54 PO; +POTA-366 PO
[2023-02-22 12:49] LABS: BASOPHILS # (AUTO) 0.1 X10'3 (0-0.2); BASOPHILS % (AUTO) 0.7 % (0-1); EOSINOPHILS % (AUTO) 0 % (0-6); LYMPHOCYTES # (AUTO) 0.5 X10'3 (1.1-4.8); LYMPHOCYTES % (AUTO) 5.6 % (21-51); MEAN CORPUSCULAR HEMOGLOBIN 33.7 PG (27.0-31.0); MEAN CORPUSCULAR HGB CONC 31.3 g/dL (33.0-36.5); MEAN CORPUSCULAR VOLUME 107.8 FL (78-98); MEAN PLATELET VOLUME 9.1 FL (7.4-10.4); MONOCYTES # (AUTO) 0.9 X10'3 (0-0.9); MONOCYTES % (AUTO) 11.5 % (2-12); NEUTROPHILS # (AUTO) 6.7 X10'3 (1.8-7.7); NEUTROPHILS % (AUTO) 82.2 % (42-75); PLATELET COUNT 209 X10'3 (140-440); RED BLOOD COUNT 1.79 X10'6 (4.20-5.60); RED CELL DISTRIBUTION WIDTH 17.9 % (11.5-14.5); WHITE BLOOD COUNT 8.2 X10'3 (4.5-11.0)
[2023-02-22 13:04] LABS: ALANINE AMINOTRANSFERASE 53 U/L (12-78); ALBUMIN 3.7 G/DL (3.4-5.0); ALBUMIN/GLOBULIN RATIO 1.3 (1.1-1.5); ALKALINE PHOSPHATASE 75 IU/L (46-116); ANION GAP 11 (8-16); ASPARTATE AMINO TRANSFERASE 63 U/L (10-37); BILIRUBIN,TOTAL 0.7 MG/DL (0.1-1.0); BLOOD UREA NITROGEN 92 MG/DL (7-18); BUN/CREATININE RATIO 36.4 (10.0-20.0); CALCIUM 8.8 MG/DL (8.5-10.1); CHLORIDE 96 MMOL/L (99-107); CREATININE 2.53 MG/DL (0.40-0.90); GLUCOSE 110 MG/DL (70-104); POTASSIUM 4.3 MMOL/L (3.5-5.1); SODIUM 133 MMOL/L (135-145); TOTAL CARBON DIOXIDE 26.2 MMOL/L (24-32); TOTAL PROTEIN 6.5 G/DL (6.4-8.2); eCRCL 14 ML/MIN; eGFR 18 ML/MIN
[2023-02-22 13:06] LABS: HEMATOCRIT 19.2 % (35.0-45.0)
[2023-02-22 13:12] LABS: PRO BRAIN NATRIURETIC PEPTIDE 12708 PG/ML (0-450)
--- NOTE | 2023-02-22 13:35 | NUR ---
FACE MAN CHRIS MADE AWARE OF PTS HYPERTENSION
[2023-02-22 13:42] LABS: ANISOCYTOSIS 1+; PLATELET ESTIMATE NORMAL
[2023-02-22 13:43] LABS: HYPOCHROMASIA 2+; POLYCHROMASIA FEW; STOMATOCYTES 1+
[2023-02-22 13:44] LABS: SCHISTOCYTES FEW
[2023-02-22] MEDS ORDERED: ondansetron/PF 4mg/2ml inj IV PRN (18:00)
[2023-02-22] MEDS ORDERED: mag hydrox/Alum hydrox/simeth 30ml oral suspension PO PRN (18:00)
[2023-02-22] MEDS ORDERED: acetaminophen 325mg tablet PO PRN (18:00)
[2023-02-22] MEDS ORDERED: magnesium Cl slow-release 64mg tablet PO PRN (18:00)
[2023-02-22] MEDS ORDERED: normal saline 1000ml 1,000 ML IV SCH (18:00)
[2023-02-22] MEDS ORDERED: potassium Cl 40MEQ/1/2NS 520ml 520 ML IV PRN (18:00)
[2023-02-22] MEDS ORDERED: magnesium hydroxide 30ml (MOM) UD suspension PO PRN (18:00)
[2023-02-22] MEDS ORDERED: magnesium 2GM in 50ml NS 50 ML IV PRN (18:00)
[2023-02-22] MEDS ORDERED: potassium Cl 20 mEq SR tablet PO PRN ×2 (18:00)
[2023-02-22] MEDS ORDERED: magnesium 4gm in 100ml NS 100 ML IV PRN (18:00)
[2023-02-22 18:06] VITALS: BP 111/39; PULSE 50; RESP 13; TEMP 98.1
--- NOTE | 2023-02-22 18:46 | NUR ---
BLOOD TRANSFUSION DOCUMENTED ON DOWN TIME SHEET PER BLOOD BANK.
[2023-02-22 19:17] LABS: OCCULT BLOOD STOOL NEGATIVE (Neg)
[2023-02-22] MEDS: furosemide 40mg/4ml inj IV SCH (20:00)
[2023-02-22] MEDS: K and/or MAG REPLACEMENT MC SCH (20:00)
[2023-02-22] MEDS: docusate sod 100mg capsule PO SCH (20:00)
--- NOTE | 2023-02-23 05:47 | NUR ---
PT IS REFUSING TO STAY NPO AT THIS TIME. PT HAS A WATER BOTTLE IN HER PURSE THAT SHE IS REFUSING TO STOP DRINKING. MD MONTES HAS BEEN NOTIFIED.
--- NOTE | 2023-02-23 06:11 | NUR ---
REPORT FAXED TO PCU FLOOR.
--- NOTE | 2023-02-23 06:44 | NUR ---
Verified report received and reviewed pt hx with nurse Jenae. Pt to go to room 4743M.
--- NOTE | 2023-02-23 06:56 | NUR ---
Patient in room ED 11. I have received report from Chayito RN and had the opportunity to ask questions and awaiting patients arrival
[2023-02-23] MEDS: docusate sod 100mg capsule PO SCH ×2 (08:00→20:00)
[2023-02-23] MEDS: K and/or MAG REPLACEMENT MC SCH ×2 (08:00→20:00)
[2023-02-23] MEDS ORDERED: PERFLUTREN PROTEIN-A MICROSPHR (Optison) 0.22 MG/ML 3ML VIAL IV ONE (08:10)
[2023-02-23] MEDS: pantoprazole 40MG/NS 100ML BAG 100 ML IV SCH (09:18)
[2023-02-23] MEDS: furosemide 40mg/4ml inj IV SCH ×2 (09:28→20:38)
[2023-02-23 10:03] LABS: ALBUMIN 3.4 G/DL (3.4-5.0); ANION GAP 9 (8-16); BASOPHILS # (AUTO) 0.1 X10'3 (0-0.2); BASOPHILS % (AUTO) 0.6 % (0-1); BLOOD UREA NITROGEN 93 MG/DL (7-18); BUN/CREATININE RATIO 34.4 (10.0-20.0); CALCIUM 8.5 MG/DL (8.5-10.1); CHLORIDE 98 MMOL/L (99-107); EOSINOPHILS % (AUTO) 0 % (0-6); GLUCOSE 109 MG/DL (70-104); LYMPHOCYTES # (AUTO) 0.5 X10'3 (1.1-4.8); MAGNESIUM 3.1 MG/DL (1.5-2.4); MEAN CORPUSCULAR HEMOGLOBIN 32.5 PG (27.0-31.0); MEAN CORPUSCULAR HGB CONC 32.2 g/dL (33.0-36.5); MEAN PLATELET VOLUME 9.7 FL (7.4-10.4); MONOCYTES # (AUTO) 1.3 X10'3 (0-0.9); MONOCYTES % (AUTO) 14.8 % (2-12); NEUTROPHILS % (AUTO) 78.6 % (42-75); PLATELET COUNT 183 X10'3 (140-440); POTASSIUM 3.9 MMOL/L (3.5-5.1); RED CELL DISTRIBUTION WIDTH 22.2 % (11.5-14.5); SODIUM 133 MMOL/L (135-145); TOTAL CARBON DIOXIDE 25.9 MMOL/L (24-32); WHITE BLOOD COUNT 8.9 X10'3 (4.5-11.0); eCRCL 13 ML/MIN; eGFR 17 ML/MIN
[2023-02-23 10:04] LABS: INR 1.3 INR; PROTHROMBIN TIME 13.3 SECONDS (9.0-12.0)
[2023-02-23 10:16] LABS: HEMATOCRIT 21.2 % (35.0-45.0); HEMOGLOBIN 6.8 g/dl (12.0-16.0)
[2023-02-23] MEDS ORDERED: CLOP75TA34 PO (11:45)
[2023-02-23] MEDS: normal saline 1000ml 1,000 ML IV SCH (11:58)
[2023-02-23 13:01] VITALS: BP 105/47; PULSE 50; RESP 16; TEMP 98.7; O2SAT 93
[2023-02-23 13:13] VITALS: BP 103/30; PULSE 50; RESP 16; TEMP 98; O2SAT 93
[2023-02-23 13:28] VITALS: BP 110/40; PULSE 50; RESP 16; TEMP 98; O2SAT 96
--- NOTE | 2023-02-23 16:31 | NUR ---
patient wqas given one more unit of blood, tolerated fine. will continue to monitor
[2023-02-23 18:00] VITALS: BP 114/79; PULSE 50; RESP 10; TEMP 98.1; O2SAT 98
--- NOTE | 2023-02-23 18:51 | NUR ---
Problems reprioritized. Patient report given, questions answered & plan of care reviewed with Amelie GREGORY.
[2023-02-23 22:00] VITALS: BP_SYST 114; BP_SYST 99; BP_DIAS 51; BP_DIAS 58; PULSE 50; RESP 10; TEMP 98; O2SAT 98
[2023-02-23 23:44] VITALS: BP 124/48; PULSE 54
[2023-02-24] VITALS (14 sets, daily range): BP systolic 97–126; BP diastolic 27–56; PULSE 50–54; RESP 14–21; TEMP 98–99.7; O2SAT 89–99
--- NOTE | 2023-02-24 06:21 | NUR ---
Patient report given, questions answered & plan of care reviewed with COLT Emanuel
[2023-02-24 06:38] LABS: HEMOGLOBIN 8.2 g/dl (12.0-16.0); MEAN CORPUSCULAR VOLUME 99.2 FL (78-98); MEAN PLATELET VOLUME 9.5 FL (7.4-10.4); MONOCYTES # (AUTO) 1.6 X10'3 (0-0.9)
[2023-02-24 06:40] LABS: BASOPHILS % (AUTO) 0.4 % (0-1); EOSINOPHILS % (AUTO) 0.1 % (0-6); HEMATOCRIT 25.7 % (35.0-45.0); LYMPHOCYTES # (AUTO) 0.6 X10'3 (1.1-4.8); LYMPHOCYTES % (AUTO) 6.2 % (21-51); MEAN CORPUSCULAR HEMOGLOBIN 31.6 PG (27.0-31.0); MEAN CORPUSCULAR HGB CONC 31.9 g/dL (33.0-36.5); MONOCYTES % (AUTO) 15.6 % (2-12); NEUTROPHILS # (AUTO) 7.9 X10'3 (1.8-7.7); NEUTROPHILS % (AUTO) 77.7 % (42-75); PLATELET COUNT 162 X10'3 (140-440); RED BLOOD COUNT 2.59 X10'6 (4.20-5.60); RED CELL DISTRIBUTION WIDTH 24.3 % (11.5-14.5); WHITE BLOOD COUNT 10.1 X10'3 (4.5-11.0)
--- NOTE | 2023-02-24 06:40 | NUR ---
Patient in room PCU 3028. I have received report from Amelie GREGORY and had the opportunity to ask questions and assume patient care.
[2023-02-24 06:43] LABS: INR 1.1 INR
[2023-02-24 07:00] LABS: ALBUMIN 3.3 G/DL (3.4-5.0); ANION GAP 7 (8-16); BLOOD UREA NITROGEN 87 MG/DL (7-18); BUN/CREATININE RATIO 36.3 (10.0-20.0); CALCIUM 8.3 MG/DL (8.5-10.1); CHLORIDE 99 MMOL/L (99-107); GLUCOSE 108 MG/DL (70-104); POTASSIUM 3.7 MMOL/L (3.5-5.1); PRO BRAIN NATRIURETIC PEPTIDE 17881 PG/ML (0-450); SODIUM 132 MMOL/L (135-145); TOTAL CARBON DIOXIDE 25.7 MMOL/L (24-32); eCRCL 15 ML/MIN; eGFR 19 ML/MIN
[2023-02-24] MEDS: K and/or MAG REPLACEMENT MC SCH ×2 (08:00→20:00)
[2023-02-24] MEDS: docusate sod 100mg capsule PO SCH ×2 (08:00→20:48)
[2023-02-24 08:03] LABS: ANISOCYTOSIS 3+; LARGE PLATELETS FEW; PLATELET ESTIMATE NORMAL; POIKILOCYTOSIS FEW; POLYCHROMASIA 1+; TEAR DROP CELLS FEW
[2023-02-24] MEDS: furosemide 40mg/4ml inj IV SCH ×2 (08:44→20:51)
[2023-02-24] MEDS: pantoprazole 40MG/NS 100ML BAG 100 ML IV SCH (08:45)
[2023-02-24] MEDS ORDERED: fentaNYL/PF 50MCG/1 ML 2ML syringe ONE (10:08)
[2023-02-24] MEDS ORDERED: MIDAZolam 1 MG/ML 5ML VIAL ONE (10:08)
[2023-02-24] MEDS ORDERED: LIDOcaine Viscous 15ml cup ONE (10:09)
--- NOTE | 2023-02-24 11:24 | NUR ---
Malnutrition consult: Pt unsure of wt loss though also reports 2-13 lb wt loss with decreased appetite/PO intake per malnutrition risk screen with RN. Current documented wt of 55 kg is stable with scaled wt hx in EMR from 11/07/2015-01/09/2023 with range 47.43-55.4 kg, no apparent wt loss. Pt initially on a renal diet and eating well for age documented with 50% PO intake of first meal. Now on a heart healthy diet pending documentation of PO intake. Pt with no documented significant decrease in muscle strength and with BLE 2+ mild edema. Pt currently lacks a minimum of two criteria for malnutrition. Will continue to follow and monitor s/s of malnutrition. Addendum: 02/24/23 at [address] Amended: Links added.
[2023-02-24] MEDS: bisoprolol 5mg tablet PO SCH (13:45)
[2023-02-24 14:49] LABS: ALANINE AMINOTRANSFERASE 78 U/L (12-78); ALBUMIN/GLOBULIN RATIO 1.2 (1.1-1.5); ALKALINE PHOSPHATASE 125 IU/L (46-116); ASPARTATE AMINO TRANSFERASE 98 U/L (10-37); BILIRUBIN,DIRECT 0.6 MG/DL (0-0.3); BILIRUBIN,TOTAL 1.2 MG/DL (0.1-1.0); FREE T4 (FREE THYROXINE) 0.42 NG/DL (0.73-1.40); TOTAL PROTEIN 6.1 G/DL (6.4-8.2)
[2023-02-24 15:11] LABS: THYROID STIMULATING HORMONE 83.24 ulU/ml (0.34-4.50)
--- NOTE | 2023-02-24 15:35 | NUR ---
patient went for EGD results in chart. Commenced on HH diet. Had copious amounts of blackish diarrhea. stated felt better after this. No nicky blood observed in stool. Still apperaing very weak and fatigued
[2023-02-24] MEDS: gabapentin 300mg capsule PO SCH (15:55)
[2023-02-24] MEDS: amiodarone 200mg tablet PO SCH (15:55)
[2023-02-24] MEDS: cholecalciferol (vitamin D3) 1,000 unit (25mcg) tablet PO SCH (15:55)
[2023-02-24] MEDS: normal saline 1000ml 1,000 ML IV SCH (15:56)
[2023-02-24] MEDS ORDERED: rivaroxaban 15mg tablet PO SCH (18:00)
--- NOTE | 2023-02-24 18:37 | NUR ---
Problems reprioritized. Patient report given, questions answered & plan of care reviewed with Prudence RN.
--- NOTE | 2023-02-24 19:05 | NUR ---
Patient in room PCU 3028. I have received report from MELLO GREGORY and had the opportunity to ask questions and assume patient care.
[2023-02-24] MEDS ORDERED: furosemide 20MG tablet PO SCH (20:00)
[2023-02-24] MEDS: calcium carbonate 500mg tablet PO SCH (20:49)
[2023-02-24] MEDS: sacubitril/valsartan 24mg-26mg tablet PO SCH (20:50)
[2023-02-24] MEDS: ferrous sulfate 325mg tablet PO SCH (20:50)
[2023-02-24] MEDS: atorvastatin 20mg tablet PO SCH (20:50)
[2023-02-25] VITALS (7 sets, daily range): BP systolic 92–105; BP diastolic 30–49; PULSE 49–63; RESP 14–22; TEMP 98.5–99.5; O2SAT 93–98
[2023-02-25] MEDS: normal saline 1000ml 1,000 ML IV SCH (03:10)
[2023-02-25 06:16] LABS: BASOPHILS % (AUTO) 0.5 % (0-1); EOSINOPHILS % (AUTO) 0.2 % (0-6); HEMATOCRIT 22.7 % (35.0-45.0); HEMOGLOBIN 7.4 g/dl (12.0-16.0); LYMPHOCYTES # (AUTO) 0.8 X10'3 (1.1-4.8); LYMPHOCYTES % (AUTO) 9.9 % (21-51); MEAN CORPUSCULAR HEMOGLOBIN 31.9 PG (27.0-31.0); MEAN CORPUSCULAR HGB CONC 32.6 g/dL (33.0-36.5); MEAN CORPUSCULAR VOLUME 97.9 FL (78-98); MEAN PLATELET VOLUME 9.8 FL (7.4-10.4); MONOCYTES # (AUTO) 1.3 X10'3 (0-0.9); MONOCYTES % (AUTO) 16.3 % (2-12); NEUTROPHILS # (AUTO) 5.9 X10'3 (1.8-7.7); NEUTROPHILS % (AUTO) 73.1 % (42-75); PLATELET COUNT 148 X10'3 (140-440); RED BLOOD COUNT 2.32 X10'6 (4.20-5.60); RED CELL DISTRIBUTION WIDTH 22.2 % (11.5-14.5)
--- NOTE | 2023-02-25 06:30 | NUR ---
Problems reprioritized. Patient report given, questions answered & plan of care reviewed with MELLO GREGORY.
--- NOTE | 2023-02-25 06:34 | NUR ---
Patient in room PCU 3028. I have received report from Yary GREGORY and had the opportunity to ask questions and assume patient care.
[2023-02-25 06:48] LABS: INR 1.5 INR; PROTHROMBIN TIME 15.5 SECONDS (9.0-12.0)
[2023-02-25 06:53] LABS: ANION GAP 8 (8-16); BLOOD UREA NITROGEN 78 MG/DL (7-18); BUN/CREATININE RATIO 32.6 (10.0-20.0); CHLORIDE 101 MMOL/L (99-107); CREATININE 2.39 MG/DL (0.40-0.90); GLUCOSE 105 MG/DL (70-104); MAGNESIUM 2.7 MG/DL (1.5-2.4); POTASSIUM 3.5 MMOL/L (3.5-5.1); PRO BRAIN NATRIURETIC PEPTIDE 19864 PG/ML (0-450); SODIUM 135 MMOL/L (135-145); TOTAL CARBON DIOXIDE 25.9 MMOL/L (24-32); eCRCL 15 ML/MIN; eGFR 19 ML/MIN
[2023-02-25 07:53] LABS: ANISOCYTOSIS 3+; NUCLEATED RED BLOOD CELLS 1 /100WBC (0-0); PLATELET ESTIMATE NORMAL; TOTAL CELLS COUNTED 100
[2023-02-25 07:54] LABS: POLYCHROMASIA 2+; TEAR DROP CELLS FEW
[2023-02-25] MEDS: K and/or MAG REPLACEMENT MC SCH ×2 (08:00→20:00)
[2023-02-25] MEDS: bisoprolol 5mg tablet PO SCH (08:00)
[2023-02-25] MEDS: docusate sod 100mg capsule PO SCH ×2 (08:00→20:00)
[2023-02-25] MEDS: sacubitril/valsartan 24mg-26mg tablet PO SCH ×2 (08:00→20:00)
[2023-02-25] MEDS: spironolactone 25 MG tablet PO SCH (08:00)
[2023-02-25] MEDS: furosemide 40mg/4ml inj IV SCH ×3 (08:00→23:50)
[2023-02-25] MEDS: pantoprazole 40MG/NS 100ML BAG 100 ML IV SCH (08:43)
[2023-02-25] MEDS: amiodarone 200mg tablet PO SCH (08:45)
[2023-02-25] MEDS: cholecalciferol (vitamin D3) 1,000 unit (25mcg) tablet PO SCH (08:45)
[2023-02-25] MEDS: gabapentin 300mg capsule PO SCH (08:45)
[2023-02-25] MEDS: vitamin B comp w/Vit. C tab 1 TAB TABLET PO SCH (08:46)
[2023-02-25] MEDS: clopidogrel 75mg tablet PO SCH (08:46)
[2023-02-25] MEDS: calcium carbonate 500mg tablet PO SCH ×2 (08:46→20:55)
[2023-02-25] MEDS: potassium Cl 20 mEq SR tablet PO SCH (08:46)
[2023-02-25] MEDS: ferrous sulfate 325mg tablet PO SCH ×2 (08:46→20:55)
[2023-02-25] MEDS ORDERED: ondansetron 4mg rapidly disintigrating tab PO PRN (11:40)
--- NOTE | 2023-02-25 14:36 | NUR ---
patient seen by Dr Acosta is for one more unit of blood. Tolerated well. Remains weak . Able to get up to BSC, but exhausted by effore of this. DR cutler. will continue to monitor
[2023-02-25] MEDS: pantoprazole 40mg Tablet.DR PO SCH (17:58)
[2023-02-25] MEDS: atorvastatin 20mg tablet PO SCH (20:56)
[2023-02-26] VITALS (7 sets, daily range): BP systolic 94–101; BP diastolic 27–48; PULSE 50–72; RESP 15–20; TEMP 97.8–97.9; O2SAT 92–99
[2023-02-26] MEDS: HYDROcodone/acetaminophen 5mg/325mg tablet PO PRN ×2 (04:05→17:10)
[2023-02-26] MEDS ORDERED: albumin (Human) 5% 250ml 250 ML IV ONE (04:10)
--- NOTE | 2023-02-26 04:25 | NUR ---
PATIENT C/O PAIN 8/10 IN hips and lower back, unable to rest or sleep. B/P , Dr mckay notified . Albumin ordered and [facility] . will continue to monitor
--- NOTE | 2023-02-26 06:17 | NUR ---
B/P 99/37. HR 52, following albumin. Appears wheezy, encouraged to sit up and deep breath and cough. [place] effective for pain relief. Report given to Stefanie PIÑA.
--- NOTE | 2023-02-26 06:30 | NUR ---
Patient in room PCU 3028. I have received report from Jenae GREGORY and had the opportunity to ask questions and assume patient care.
[2023-02-26 07:02] LABS: BASOPHILS % (AUTO) 0.5 % (0-1); EOSINOPHILS # (AUTO) 0.1 X10'3 (0-0.9); EOSINOPHILS % (AUTO) 1.2 % (0-6); HEMOGLOBIN 9.2 g/dl (12.0-16.0); LYMPHOCYTES # (AUTO) 0.9 X10'3 (1.1-4.8); LYMPHOCYTES % (AUTO) 9.6 % (21-51); MEAN CORPUSCULAR HEMOGLOBIN 31.5 PG (27.0-31.0); MEAN CORPUSCULAR HGB CONC 32.7 g/dL (33.0-36.5); MEAN CORPUSCULAR VOLUME 96.1 FL (78-98); MEAN PLATELET VOLUME 9.5 FL (7.4-10.4); MONOCYTES # (AUTO) 0.9 X10'3 (0-0.9); MONOCYTES % (AUTO) 10.2 % (2-12); NEUTROPHILS % (AUTO) 78.5 % (42-75); PLATELET COUNT 153 X10'3 (140-440); RED BLOOD COUNT 2.91 X10'6 (4.20-5.60); RED CELL DISTRIBUTION WIDTH 22.1 % (11.5-14.5)
[2023-02-26 07:10] LABS: INR 1.1 INR; PROTHROMBIN TIME 11.6 SECONDS (9.0-12.0)
[2023-02-26 07:45] LABS: ALBUMIN 2.9 G/DL (3.4-5.0); ANION GAP 12 (8-16); BLOOD UREA NITROGEN 79 MG/DL (7-18); BUN/CREATININE RATIO 28.6 (10.0-20.0); CALCIUM 7.7 MG/DL (8.5-10.1); CHLORIDE 98 MMOL/L (99-107); CREATININE 2.76 MG/DL (0.40-0.90); GLUCOSE 169 MG/DL (70-104); MAGNESIUM 2.6 MG/DL (1.5-2.4); POTASSIUM 4.3 MMOL/L (3.5-5.1); PRO BRAIN NATRIURETIC PEPTIDE 16368 PG/ML (0-450); SODIUM 130 MMOL/L (135-145); TOTAL CARBON DIOXIDE 20.1 MMOL/L (24-32); eCRCL 13 ML/MIN; eGFR 16 ML/MIN
[2023-02-26] MEDS: gabapentin 300mg capsule PO SCH (07:49)
[2023-02-26] MEDS: potassium Cl 20 mEq SR tablet PO SCH (07:49)
[2023-02-26] MEDS: cholecalciferol (vitamin D3) 1,000 unit (25mcg) tablet PO SCH (07:49)
[2023-02-26] MEDS: docusate sod 100mg capsule PO SCH ×2 (07:49→21:12)
[2023-02-26] MEDS: vitamin B comp w/Vit. C tab 1 TAB TABLET PO SCH (07:49)
[2023-02-26] MEDS: pantoprazole 40mg Tablet.DR PO SCH ×2 (07:49→17:08)
[2023-02-26] MEDS: ferrous sulfate 325mg tablet PO SCH ×2 (07:49→21:12)
[2023-02-26] MEDS: clopidogrel 75mg tablet PO SCH (07:49)
[2023-02-26] MEDS: calcium carbonate 500mg tablet PO SCH ×2 (07:49→21:12)
[2023-02-26] MEDS: amiodarone 200mg tablet PO SCH (07:49)
[2023-02-26] MEDS: spironolactone 25 MG tablet PO SCH (07:50)
[2023-02-26] MEDS: K and/or MAG REPLACEMENT MC SCH ×2 (08:00→20:00)
[2023-02-26] MEDS: furosemide 40mg/4ml inj IV SCH ×2 (08:00→21:03)
[2023-02-26] MEDS: sacubitril/valsartan 24mg-26mg tablet PO SCH ×2 (08:00→21:12)
[2023-02-26] MEDS: bisoprolol 5mg tablet PO SCH (08:00)
[2023-02-26] MEDS: levoTHYROXINE 25mcg tablet PO SCH (09:13)
[2023-02-26 10:33] LABS: PLATELET ESTIMATE NORMAL
[2023-02-26 10:35] LABS: ANISOCYTOSIS 3+; POIKILOCYTOSIS 1+; POLYCHROMASIA 1+; TEAR DROP CELLS FEW
[2023-02-26] MEDS ORDERED: furosemide 20 MG/2 ML vial IV ONE (12:05)
--- NOTE | 2023-02-26 12:30 | NUR ---
Spoke with Dr Serrano about patient's BP and giving her Lasix gave order to give Lasix dose and only hold if SBP < 90.
--- NOTE | 2023-02-26 14:24 | NUR ---
AGREE WITH SOFTWARE QA SYSTEM SPECIALIST AM ASSESSMENT
--- NOTE | 2023-02-26 17:56 | NUR ---
Patient in room PCU 3028. I have received report from Leslie and had the opportunity to ask questions and assume patient care.
--- NOTE | 2023-02-26 18:00 | NUR ---
Problems reprioritized. Patient report given, questions answered & plan of care reviewed with Shira PIÑA.
[2023-02-26] MEDS: atorvastatin 20mg tablet PO SCH (21:12)
[2023-02-27] VITALS (17 sets, daily range): BP systolic 86–119; BP diastolic 40–50; PULSE 50–62; RESP 15–24; TEMP 97.8–99.1; O2SAT 93–98
--- NOTE | 2023-02-27 06:20 | NUR ---
Patient in room PCU 3028. I have received report from Shira PIÑA and had the opportunity to ask questions and assume patient care.
--- NOTE | 2023-02-27 06:41 | NUR ---
Problems reprioritized. Patient report given, questions answered & plan of care reviewed with Leslie.
[2023-02-27 07:32] LABS: BASOPHILS % (AUTO) 0.3 % (0-1); EOSINOPHILS # (AUTO) 0.1 X10'3 (0-0.9); EOSINOPHILS % (AUTO) 1.4 % (0-6); HEMATOCRIT 31.2 % (35.0-45.0); HEMOGLOBIN 9.9 g/dl (12.0-16.0); LYMPHOCYTES # (AUTO) 0.6 X10'3 (1.1-4.8); LYMPHOCYTES % (AUTO) 6.2 % (21-51); MEAN CORPUSCULAR HEMOGLOBIN 31.3 PG (27.0-31.0); MEAN CORPUSCULAR HGB CONC 31.9 g/dL (33.0-36.5); MEAN CORPUSCULAR VOLUME 98.3 FL (78-98); MEAN PLATELET VOLUME 9.4 FL (7.4-10.4); MONOCYTES # (AUTO) 1.2 X10'3 (0-0.9); MONOCYTES % (AUTO) 11.6 % (2-12); NEUTROPHILS # (AUTO) 8.2 X10'3 (1.8-7.7); NEUTROPHILS % (AUTO) 80.5 % (42-75); PLATELET COUNT 159 X10'3 (140-440); RED BLOOD COUNT 3.17 X10'6 (4.20-5.60); RED CELL DISTRIBUTION WIDTH 21.9 % (11.5-14.5); WHITE BLOOD COUNT 10.2 X10'3 (4.5-11.0)
[2023-02-27 07:40] LABS: PROTHROMBIN TIME 10.8 SECONDS (9.0-12.0)
[2023-02-27 07:53] LABS: ALBUMIN 2.9 G/DL (3.4-5.0); ANION GAP 6 (8-16); BLOOD UREA NITROGEN 81 MG/DL (7-18); BUN/CREATININE RATIO 28.8 (10.0-20.0); CALCIUM 8.6 MG/DL (8.5-10.1); CHLORIDE 98 MMOL/L (99-107); CREATININE 2.81 MG/DL (0.40-0.90); GLUCOSE 111 MG/DL (70-104); POTASSIUM 5.6 MMOL/L (3.5-5.1); PRO BRAIN NATRIURETIC PEPTIDE 15784 PG/ML (0-450); SODIUM 129 MMOL/L (135-145); TOTAL CARBON DIOXIDE 25.1 MMOL/L (24-32); eCRCL 13 ML/MIN; eGFR 16 ML/MIN
[2023-02-27] MEDS: K and/or MAG REPLACEMENT MC SCH ×2 (08:00→20:00)
[2023-02-27] MEDS: amiodarone 200mg tablet PO SCH (08:00)
[2023-02-27] MEDS: spironolactone 25 MG tablet PO SCH (08:00)
[2023-02-27] MEDS: sacubitril/valsartan 24mg-26mg tablet PO SCH ×2 (08:00→20:00)
[2023-02-27] MEDS: bisoprolol 5mg tablet PO SCH (08:00)
[2023-02-27] MEDS: cholecalciferol (vitamin D3) 1,000 unit (25mcg) tablet PO SCH (08:55)
[2023-02-27] MEDS: vitamin B comp w/Vit. C tab 1 TAB TABLET PO SCH (08:55)
[2023-02-27] MEDS: clopidogrel 75mg tablet PO SCH (08:55)
[2023-02-27] MEDS: gabapentin 100mg capsule PO SCH (08:56)
[2023-02-27] MEDS: ferrous sulfate 325mg tablet PO SCH ×2 (08:56→20:21)
[2023-02-27] MEDS: calcium carbonate 500mg tablet PO SCH ×2 (08:56→20:21)
[2023-02-27] MEDS: potassium Cl 20 mEq SR tablet PO SCH (08:56)
[2023-02-27] MEDS: docusate sod 100mg capsule PO SCH (08:56)
[2023-02-27] MEDS: pantoprazole 40mg Tablet.DR PO SCH ×2 (08:56→17:36)
[2023-02-27] MEDS: levoTHYROXINE 25mcg tablet PO SCH (08:56)
--- NOTE | 2023-02-27 09:22 | NUR ---
Paged RT for eval.
[2023-02-27] MEDS: furosemide 40mg/4ml inj IV SCH ×2 (10:01→20:21)
--- NOTE | 2023-02-27 10:30 | NUR ---
Paged RT for consult
[2023-02-27] MEDS ORDERED: albuterol 2.5 MG/3 ML nebule NEB PRN (10:40)
[2023-02-27] MEDS ORDERED: albuterol 2.5 MG/3 ML nebule ONE (10:42)
[2023-02-27] MEDS ORDERED: furosemide 20 MG/2 ML vial IV ONE (11:00)
--- NOTE | 2023-02-27 12:40 | NUR ---
Initial: Pt admit for worsening weakness, acute exacerbation of CHF, CKD and CAD per EMR. Pt is currently on a heart healthy diet with average PO intake of 55% x 8 meals which met 69% of estimated kcal needs and 100% of estimated protein. Recommend Nepro once a day to help better meet pt's estimated kcal needs; notified. LBM on 02/27 per EMR. Will continue to monitor and make recommendations as appropriate. Recommendations: 1.continue heart healthy diet; encourage PO intake 2.Nepro once a day; pending physician approval in EMR 3.routine bowel care 4.weekly weights Addendum: 02/27/23 at [address] Amended: Links added.
--- NOTE | 2023-02-27 12:47 | NUR ---
AGREE WITH WAREHOUSE HANDLER AM ASSESSMENT EXCEPT WHERE ADDITIONS MADE.
[2023-02-27 15:13] LABS: ABG BASE EXCESS -4.7 mmol/L (-2.0-2.0); ABG HCO3 20.3 mmol/L (22.0-26.0); ABG OXYGEN SATURATION 96.8 % (94-97); ABG PCO2 (T) 36.8 mmHg (32.0-45.0); ABG PH (T) 7.358 (7.350-7.450); ABG PO2 (T) 88.3 mmHg (75.0-100.0); ALLEN'S TEST POSITIVE; FCOHb 0.7 % (0.0-3.9); FHHb 3.2 % (0.0-5.0); FLOW 3 L/min; FMetHb 0.3 % (0.0-1.5); FO2Hb 95.8 % (94-97); MODE NASAL CANNULA; PATIENT TEMPERATURE 36.6; TOTAL HEMOGLOBIN 10.7 G/dl (12.0-16.0)
[2023-02-27] MEDS: albuterol 2.5 MG/3 ML nebule NEB SCH ×3 (15:58→23:14)
[2023-02-27] MEDS: HYDROcodone/acetaminophen 5mg/325mg tablet PO PRN (17:37)
--- NOTE | 2023-02-27 18:05 | NUR ---
Problems reprioritized. Patient report given, questions answered & plan of care reviewed with Asia GREGORY.
[2023-02-27] MEDS: atorvastatin 20mg tablet PO SCH (20:20)
[2023-02-28] VITALS (19 sets, daily range): BP systolic 95–106; BP diastolic 32–60; PULSE 50–59; RESP 16–24; TEMP 97.9–98.6; O2SAT 95–100
[2023-02-28] MEDS: albuterol 2.5 MG/3 ML nebule NEB SCH ×6 (03:20→23:28)
--- NOTE | 2023-02-28 06:12 | NUR ---
Problems reprioritized. Patient report given, questions answered & plan of care reviewed with Stefanie PIÑA.
--- NOTE | 2023-02-28 06:30 | NUR ---
Patient in room PCU 3028. I have received report from Asia GREGORY and had the opportunity to ask questions and assume patient care.
[2023-02-28] MEDS: furosemide 40mg/4ml inj IV SCH ×2 (07:30→19:47)
--- NOTE | 2023-02-28 07:30 | NUR ---
PATIENT BP 96/32 THIS AM . LASIX GIVEN IN PARAMETERS. PARAMETERS STATE HOLD FOR SBP LESS THAN 80.
[2023-02-28] MEDS: sacubitril/valsartan 24mg-26mg tablet PO SCH ×2 (08:00→20:00)
[2023-02-28] MEDS: K and/or MAG REPLACEMENT MC SCH ×2 (08:00→19:43)
[2023-02-28] MEDS: bisoprolol 5mg tablet PO SCH (08:00)
[2023-02-28] MEDS: pantoprazole 40mg Tablet.DR PO SCH ×2 (08:02→17:55)
[2023-02-28] MEDS: levoTHYROXINE 25mcg tablet PO SCH (08:02)
[2023-02-28] MEDS: gabapentin 100mg capsule PO SCH (08:02)
[2023-02-28] MEDS: clopidogrel 75mg tablet PO SCH (08:02)
[2023-02-28] MEDS: calcium carbonate 500mg tablet PO SCH ×2 (08:02→19:46)
[2023-02-28] MEDS: cholecalciferol (vitamin D3) 1,000 unit (25mcg) tablet PO SCH (08:02)
[2023-02-28] MEDS: potassium Cl 20 mEq SR tablet PO SCH (08:02)
[2023-02-28] MEDS: ferrous sulfate 325mg tablet PO SCH ×2 (08:02→19:47)
[2023-02-28] MEDS: vitamin B comp w/Vit. C tab 1 TAB TABLET PO SCH (08:02)
[2023-02-28 08:34] LABS: PRO BRAIN NATRIURETIC PEPTIDE 17932 PG/ML (0-450)
--- NOTE | 2023-02-28 08:40 | NUR ---
Spoke with Resident Alfonso about patient's urine being strong smelling and cloudy gave order for a UA.
[2023-02-28 09:52] LABS: BASOPHILS # (AUTO) 0.1 X10'3 (0-0.2); BASOPHILS % (AUTO) 0.5 % (0-1); EOSINOPHILS # (AUTO) 0.1 X10'3 (0-0.9); EOSINOPHILS % (AUTO) 1.2 % (0-6); HEMATOCRIT 32.6 % (35.0-45.0); HEMOGLOBIN 10.2 g/dl (12.0-16.0); LYMPHOCYTES # (AUTO) 0.7 X10'3 (1.1-4.8); LYMPHOCYTES % (AUTO) 6.4 % (21-51); MEAN CORPUSCULAR HEMOGLOBIN 31.2 PG (27.0-31.0); MEAN CORPUSCULAR HGB CONC 31.2 g/dL (33.0-36.5); MEAN CORPUSCULAR VOLUME 99.8 FL (78-98); MEAN PLATELET VOLUME 9.4 FL (7.4-10.4); NEUTROPHILS # (AUTO) 8.3 X10'3 (1.8-7.7); NEUTROPHILS % (AUTO) 81.9 % (42-75); PLATELET COUNT 161 X10'3 (140-440); RED BLOOD COUNT 3.26 X10'6 (4.20-5.60); RED CELL DISTRIBUTION WIDTH 22.3 % (11.5-14.5); WHITE BLOOD COUNT 10.2 X10'3 (4.5-11.0)
[2023-02-28 09:54] LABS: ALANINE AMINOTRANSFERASE 152 U/L (12-78); ALBUMIN 2.7 G/DL (3.4-5.0); ALBUMIN/GLOBULIN RATIO 0.8 (1.1-1.5); ALKALINE PHOSPHATASE 111 IU/L (46-116); ANION GAP 11 (8-16); ASPARTATE AMINO TRANSFERASE 146 U/L (10-37); BILIRUBIN,TOTAL 0.6 MG/DL (0.1-1.0); BLOOD UREA NITROGEN 85 MG/DL (7-18); BUN/CREATININE RATIO 34.6 (10.0-20.0); CALCIUM 8.7 MG/DL (8.5-10.1); CHLORIDE 100 MMOL/L (99-107); CREATININE 2.46 MG/DL (0.40-0.90); GLUCOSE 104 MG/DL (70-104); POTASSIUM 5.2 MMOL/L (3.5-5.1); SODIUM 132 MMOL/L (135-145); TOTAL CARBON DIOXIDE 20.7 MMOL/L (24-32); TOTAL PROTEIN 5.9 G/DL (6.4-8.2); eCRCL 14 ML/MIN; eGFR 19 ML/MIN
[2023-02-28 11:37] LABS: D-DIMER 1.37 MG/L FEU (0-0.50)
[2023-02-28 11:47] LABS: BILIRUBIN,URINE NEGATIVE (Neg); CLARITY,URINE SLIGHTLY CLOUDY (Clear); COLOR,URINE YELLOW (Yellow); GLUCOSE, URINE NEGATIVE (Neg); KETONES,URINE NEGATIVE (Neg); LEUKOCYTE ESTERASE ,URINE NEGATIVE (Neg); NITRITES, URINE NEGATIVE (Neg); OCCULT BLOOD,URINE NEGATIVE (Neg); PROTEIN,URINE NEGATIVE (Neg); UROBILINOGEN,URINE 0.2 E.U/dL (0.2-1.0)
[2023-02-28 12:02] LABS: UA COLLECTION TYPE NON-SPECIFIED
[2023-02-28 12:08] LABS: AMORPHOUS URATES 1+; BACTERIA,URINE NONE SEEN /HPF (Neg); MUCUS STRANDS FEW /LPF (Neg); RBC,URINE NONE SEEN /HPF (0-2); SQUAMOUS EPITHELIAL CELL,UR FEW /LPF (FEW); WBC,URINE 0-4 /HPF (0-4)
[2023-02-28 12:17] LABS: PLATELET ESTIMATE NORMAL
[2023-02-28 12:19] LABS: ANISOCYTOSIS 3+; BURR CELLS 2+; POIKILOCYTOSIS 1+; SCHISTOCYTES FEW
[2023-02-28 12:20] LABS: TEAR DROP CELLS 1+
[2023-02-28 12:21] LABS: ELLIPTOCYTES FEW; POLYCHROMASIA 1+
[2023-02-28] MEDS ORDERED: piperacillin/tazo 4.5gm/100ml 100 ML IV SCH (13:00)
[2023-02-28] MEDS ORDERED: azithromycin/NS 500mg/250ml 250 ML IV SCH (13:30)
[2023-02-28] MEDS ORDERED: CefTRIAXone 2gm/D5W 50ml BAG 50 ML IV SCH (13:30)
[2023-02-28] MEDS: methylPREDNISolone sod succ/PF 40mg inj. IV SCH ×2 (14:09→19:47)
[2023-02-28] MEDS: HYDROcodone/acetaminophen 5mg/325mg tablet PO PRN (14:53)
--- NOTE | 2023-02-28 18:24 | NUR ---
Problems reprioritized. Patient report given, questions answered & plan of care reviewed with Asia GREGORY.
--- NOTE | 2023-02-28 19:10 | NUR ---
Patient in room PCU 3028. I have received report from Stefanie PIÑA and had the opportunity to ask questions and assume patient care. - Asia GREGORY
[2023-02-28] MEDS: atorvastatin 20mg tablet PO SCH (20:49)
[2023-03-01] VITALS (16 sets, daily range): BP systolic 93–114; BP diastolic 33–65; PULSE 52–62; RESP 12–30; TEMP 97.4–98.2; O2SAT 92–99
[2023-03-01] MEDS: albuterol 2.5 MG/3 ML nebule NEB SCH ×6 (03:08→23:48)
--- NOTE | 2023-03-01 06:02 | NUR ---
Problems reprioritized. Patient report given, questions answered & plan of care reviewed with Mayra GREGORY.
[2023-03-01 06:57] LABS: PRO BRAIN NATRIURETIC PEPTIDE 14471 PG/ML (0-450)
[2023-03-01] MEDS: furosemide 40mg/4ml inj IV SCH (07:54)
[2023-03-01] MEDS: methylPREDNISolone sod succ/PF 40mg inj. IV SCH ×2 (07:54→21:16)
[2023-03-01] MEDS: cholecalciferol (vitamin D3) 1,000 unit (25mcg) tablet PO SCH (07:55)
[2023-03-01] MEDS: clopidogrel 75mg tablet PO SCH (07:55)
[2023-03-01] MEDS: pantoprazole 40mg Tablet.DR PO SCH ×2 (07:55→21:15)
[2023-03-01] MEDS: ferrous sulfate 325mg tablet PO SCH ×2 (07:55→21:15)
[2023-03-01] MEDS: calcium carbonate 500mg tablet PO SCH ×2 (07:55→21:16)
[2023-03-01] MEDS: levoTHYROXINE 25mcg tablet PO SCH (07:55)
[2023-03-01] MEDS: potassium Cl 20 mEq SR tablet PO SCH (07:56)
[2023-03-01] MEDS: vitamin B comp w/Vit. C tab 1 TAB TABLET PO SCH (07:56)
[2023-03-01] MEDS: gabapentin 100mg capsule PO SCH (07:56)
[2023-03-01] MEDS: sacubitril/valsartan 24mg-26mg tablet PO SCH ×2 (08:00→21:20)
[2023-03-01] MEDS ORDERED: levoFLOXACIN-Levaquin 500mg/D5 100 ML IV SCH (08:00)
[2023-03-01] MEDS: K and/or MAG REPLACEMENT MC SCH ×2 (08:00→20:00)
[2023-03-01] MEDS ORDERED: atenolol 50mg tablet PO SCH (08:00)
[2023-03-01] MEDS ORDERED: spironolactone 25 MG tablet PO SCH (08:30)
[2023-03-01] MEDS: atenolol 25mg tablet PO SCH (10:40)
[2023-03-01 12:40] LABS: BASOPHILS % (AUTO) 0.3 % (0-1); EOSINOPHILS % (AUTO) 0.1 % (0-6); HEMATOCRIT 31.7 % (35.0-45.0); HEMOGLOBIN 10.1 g/dl (12.0-16.0); LYMPHOCYTES # (AUTO) 0.1 X10'3 (1.1-4.8); LYMPHOCYTES % (AUTO) 1.6 % (21-51); MEAN CORPUSCULAR HEMOGLOBIN 31.5 PG (27.0-31.0); MEAN CORPUSCULAR HGB CONC 31.7 g/dL (33.0-36.5); MEAN CORPUSCULAR VOLUME 99.4 FL (78-98); MEAN PLATELET VOLUME 9.5 FL (7.4-10.4); MONOCYTES # (AUTO) 0.1 X10'3 (0-0.9); MONOCYTES % (AUTO) 1.5 % (2-12); NEUTROPHILS # (AUTO) 8.2 X10'3 (1.8-7.7); NEUTROPHILS % (AUTO) 96.5 % (42-75); PLATELET COUNT 166 X10'3 (140-440); RED BLOOD COUNT 3.19 X10'6 (4.20-5.60); RED CELL DISTRIBUTION WIDTH 21.9 % (11.5-14.5); WHITE BLOOD COUNT 8.5 X10'3 (4.5-11.0)
[2023-03-01 12:42] LABS: ALBUMIN 2.5 G/DL (3.4-5.0); ANION GAP 10 (8-16); BLOOD UREA NITROGEN 86 MG/DL (7-18); BUN/CREATININE RATIO 39.1 (10.0-20.0); CALCIUM 8.8 MG/DL (8.5-10.1); CHLORIDE 102 MMOL/L (99-107); GLUCOSE 155 MG/DL (70-104); POTASSIUM 5.9 MMOL/L (3.5-5.1); SODIUM 133 MMOL/L (135-145); TOTAL CARBON DIOXIDE 20.9 MMOL/L (24-32); eCRCL 16 ML/MIN; eGFR 21 ML/MIN
--- NOTE | 2023-03-01 15:53 | NUR ---
Reassessment: Pt continues on a heart healthy diet and overall eating well, documented with average 68% PO intake since last RD assessment 02/27 meeting 85% estimated energy needs and 100% estimated protein needs. Pt seen at bedside, food preferences were obtained and d/w dietary, see below. Pt denies any additional questions/concerns regarding nutrition. LBM 02/28 per EMR. Will continue to follow and make recommendations as appropriate. Recommendations: 1. Continue heart healthy diet; monitor renal status and need for renal diet 2. [place] food preferences: coffee WB, iced tea WL, hot tea WS, lemon [place] soda and lemon juice BIDLD; sugar and cream TID, 3. Nepro WL; pending physician approval in EMR 3. Bowel care PRN 4. Weekly scaled weights Addendum: 03/01/23 at [address] Amended: Links added.
[2023-03-01] MEDS: atorvastatin 20mg tablet PO SCH (21:15)
[2023-03-01] MEDS: furosemide 20 MG/2 ML vial IV SCH (21:17)
[2023-03-02] VITALS (15 sets, daily range): BP systolic 98–114; BP diastolic 39–45; PULSE 58–72; RESP 13–22; TEMP 97–98.1; O2SAT 4–94
[2023-03-02] MEDS: albuterol 2.5 MG/3 ML nebule NEB SCH ×6 (03:58→23:30)
--- NOTE | 2023-03-02 06:24 | NUR ---
Problems reprioritized. Patient report given, questions answered & plan of care reviewed with Mayra
[2023-03-02] MEDS: atenolol 25mg tablet PO SCH (08:00)
[2023-03-02] MEDS: K and/or MAG REPLACEMENT MC SCH ×2 (08:00→20:00)
[2023-03-02] MEDS: sacubitril/valsartan 24mg-26mg tablet PO SCH ×2 (08:00→20:05)
[2023-03-02] MEDS: levoTHYROXINE 25mcg tablet PO SCH (08:17)
[2023-03-02] MEDS: ferrous sulfate 325mg tablet PO SCH ×2 (08:17→20:05)
[2023-03-02] MEDS: cholecalciferol (vitamin D3) 1,000 unit (25mcg) tablet PO SCH (08:18)
[2023-03-02] MEDS: gabapentin 100mg capsule PO SCH (08:18)
[2023-03-02] MEDS: calcium carbonate 500mg tablet PO SCH ×2 (08:18→20:05)
[2023-03-02] MEDS: furosemide 20 MG/2 ML vial IV SCH (08:18)
[2023-03-02] MEDS: pantoprazole 40mg Tablet.DR PO SCH ×2 (08:18→19:48)
[2023-03-02] MEDS: clopidogrel 75mg tablet PO SCH (08:18)
[2023-03-02] MEDS: vitamin B comp w/Vit. C tab 1 TAB TABLET PO SCH (08:18)
[2023-03-02] MEDS: methylPREDNISolone sod succ/PF 40mg inj. IV SCH (08:19)
[2023-03-02 08:26] LABS: PRO BRAIN NATRIURETIC PEPTIDE 11404 PG/ML (0-450)
[2023-03-02 09:31] LABS: BASOPHILS % (AUTO) 0.1 % (0-1); EOSINOPHILS % (AUTO) 0 % (0-6); HEMATOCRIT 31.6 % (35.0-45.0); HEMOGLOBIN 9.9 g/dl (12.0-16.0); LYMPHOCYTES # (AUTO) 0.3 X10'3 (1.1-4.8); LYMPHOCYTES % (AUTO) 2.7 % (21-51); MEAN CORPUSCULAR HEMOGLOBIN 30.7 PG (27.0-31.0); MEAN CORPUSCULAR HGB CONC 31.4 g/dL (33.0-36.5); MEAN CORPUSCULAR VOLUME 97.7 FL (78-98); MEAN PLATELET VOLUME 8.6 FL (7.4-10.4); MONOCYTES # (AUTO) 0.6 X10'3 (0-0.9); NEUTROPHILS # (AUTO) 10.5 X10'3 (1.8-7.7); NEUTROPHILS % (AUTO) 92.2 % (42-75); PLATELET COUNT 227 X10'3 (140-440); RED BLOOD COUNT 3.23 X10'6 (4.20-5.60); RED CELL DISTRIBUTION WIDTH 21.3 % (11.5-14.5); WHITE BLOOD COUNT 11.4 X10'3 (4.5-11.0)
[2023-03-02 09:43] LABS: ALANINE AMINOTRANSFERASE 155 U/L (12-78); ALBUMIN 2.6 G/DL (3.4-5.0); ALBUMIN/GLOBULIN RATIO 0.8 (1.1-1.5); ALKALINE PHOSPHATASE 113 IU/L (46-116); ANION GAP 12 (8-16); ASPARTATE AMINO TRANSFERASE 119 U/L (10-37); BILIRUBIN,TOTAL 0.3 MG/DL (0.1-1.0); BLOOD UREA NITROGEN 85 MG/DL (7-18); BUN/CREATININE RATIO 40.7 (10.0-20.0); CALCIUM 9.1 MG/DL (8.5-10.1); CHLORIDE 102 MMOL/L (99-107); CREATININE 2.09 MG/DL (0.40-0.90); GLUCOSE 126 MG/DL (70-104); POTASSIUM 5.7 MMOL/L (3.5-5.1); SODIUM 135 MMOL/L (135-145); TOTAL CARBON DIOXIDE 20.9 MMOL/L (24-32); eCRCL 17 ML/MIN; eGFR 23 ML/MIN
[2023-03-02 09:48] LABS: PLATELET ESTIMATE NORMAL
[2023-03-02 09:49] LABS: ANISOCYTOSIS 3+; BURR CELLS 2+; ELLIPTOCYTES FEW; POLYCHROMASIA 1+; SCHISTOCYTES FEW; TEAR DROP CELLS FEW
--- NOTE | 2023-03-02 13:28 | NUR ---
report called to [facility] LVN. All questions answered. Transfer document filled out. pt will leave unit at 1430 via transport.
[2023-03-02] MEDS ORDERED: sodium polystyrene sulfonate 15gm/60ml oral suspension PO ONE (14:25)
--- NOTE | 2023-03-02 16:06 | NUR ---
[address], pt. sleeping soundly
--- NOTE | 2023-03-02 18:50 | NUR ---
Patient in room PCU 3028. I have received report from ROGE GREGORY and had the opportunity to ask questions and assume patient care.
[2023-03-02] MEDS: atorvastatin 20mg tablet PO SCH (21:00)
[2023-03-02 23:12] LABS: TOTAL PROTEIN,URINE RANDOM 9.5 MG/DL
[2023-03-02 23:38] LABS: BILIRUBIN,URINE NEGATIVE (Neg); CLARITY,URINE CLEAR (Clear); COLOR,URINE YELLOW (Yellow); GLUCOSE, URINE NEGATIVE (Neg); KETONES,URINE NEGATIVE (Neg); LEUKOCYTE ESTERASE ,URINE NEGATIVE (Neg); NITRITES, URINE NEGATIVE (Neg); OCCULT BLOOD,URINE NEGATIVE (Neg); PH,URINE 5.5 (4.8-8.0); PROTEIN,URINE NEGATIVE (Neg); UROBILINOGEN,URINE 0.2 E.U/dL (0.2-1.0)
[2023-03-02 23:42] LABS: UA COLLECTION TYPE STRAIGHT CATH
[2023-03-03] VITALS (21 sets, daily range): BP systolic 102–115; BP diastolic 40–64; PULSE 61–79; RESP 16–22; TEMP 97.4–99.7; O2SAT 89–97
[2023-03-03 00:10] LABS: UA EOSINOPHILS RARE EOS /HPF
[2023-03-03] MEDS: albuterol 2.5 MG/3 ML nebule NEB SCH ×6 (03:20→23:32)
[2023-03-03] MEDS: HYDROcodone/acetaminophen 5mg/325mg tablet PO PRN (05:56)
--- NOTE | 2023-03-03 06:30 | NUR ---
Patient in room PCU 3028. I have received report from COLT Pringle and had the opportunity to ask questions and assume patient care.
--- NOTE | 2023-03-03 06:40 | NUR ---
Problems reprioritized. Patient report given, questions answered & plan of care reviewed with JACEY RN.
[2023-03-03] MEDS ORDERED: levoFLOXACIN-Levaquin 250mg/D5 50 ML IV SCH (08:00)
[2023-03-03] MEDS: atenolol 25mg tablet PO SCH (08:00)
[2023-03-03] MEDS: sacubitril/valsartan 24mg-26mg tablet PO SCH ×2 (11:28→22:23)
[2023-03-03] MEDS: gabapentin 100mg capsule PO SCH (11:31)
[2023-03-03] MEDS: pantoprazole 40mg Tablet.DR PO SCH ×2 (11:31→17:33)
[2023-03-03] MEDS: ferrous sulfate 325mg tablet PO SCH ×2 (11:32→22:23)
[2023-03-03] MEDS: vitamin B comp w/Vit. C tab 1 TAB TABLET PO SCH (11:32)
[2023-03-03] MEDS: levoTHYROXINE 25mcg tablet PO SCH (11:32)
[2023-03-03] MEDS: calcium carbonate 500mg tablet PO SCH ×2 (11:34→22:23)
[2023-03-03] MEDS: cholecalciferol (vitamin D3) 1,000 unit (25mcg) tablet PO SCH (11:34)
[2023-03-03] MEDS ORDERED: albumin (human) 25% 100ml IV 100 ML IV ONE (11:40)
[2023-03-03] MEDS ORDERED: HYDROcodone/acetaminophen 10/325mg tab PO PRN (11:45)
[2023-03-03] MEDS: clopidogrel 75mg tablet PO SCH (11:47)
[2023-03-03] MEDS: nystatin 500,000 unit/5ML UD oral suspension PO SCH ×3 (11:49→22:24)
[2023-03-03 13:30] LABS: ALANINE AMINOTRANSFERASE 167 U/L (12-78); ALBUMIN 2.5 G/DL (3.4-5.0); ALBUMIN/GLOBULIN RATIO 0.8 (1.1-1.5); ALKALINE PHOSPHATASE 106 IU/L (46-116); ANION GAP 9 (8-16); ASPARTATE AMINO TRANSFERASE 99 U/L (10-37); BILIRUBIN,TOTAL 0.3 MG/DL (0.1-1.0); BLOOD UREA NITROGEN 73 MG/DL (7-18); BUN/CREATININE RATIO 44.8 (10.0-20.0); CALCIUM 8.9 MG/DL (8.5-10.1); CHLORIDE 104 MMOL/L (99-107); CREATININE 1.63 MG/DL (0.40-0.90); GLUCOSE 87 MG/DL (70-104); MAGNESIUM 2.6 MG/DL (1.5-2.4); PHOSPHORUS 3.3 MG/DL (2.3-4.5); POTASSIUM 4.7 MMOL/L (3.5-5.1); SODIUM 140 MMOL/L (135-145); TOTAL PROTEIN 5.7 G/DL (6.4-8.2); eCRCL 24 ML/MIN; eGFR 30 ML/MIN
[2023-03-03 13:31] LABS: BASOPHILS % (AUTO) 0.3 % (0-1); EOSINOPHILS % (AUTO) 0 % (0-6); HEMATOCRIT 34.4 % (35.0-45.0); HEMOGLOBIN 10.8 g/dl (12.0-16.0); LYMPHOCYTES # (AUTO) 0.6 X10'3 (1.1-4.8); LYMPHOCYTES % (AUTO) 5.3 % (21-51); MEAN CORPUSCULAR HGB CONC 31.5 g/dL (33.0-36.5); MEAN CORPUSCULAR VOLUME 98.2 FL (78-98); MEAN PLATELET VOLUME 8.1 FL (7.4-10.4); MONOCYTES % (AUTO) 8.9 % (2-12); NEUTROPHILS % (AUTO) 85.5 % (42-75); PLATELET COUNT 250 X10'3 (140-440); WHITE BLOOD COUNT 11.8 X10'3 (4.5-11.0)
[2023-03-03] MEDS: K and/or MAG REPLACEMENT MC SCH ×2 (14:42→19:44)
[2023-03-03] MEDS ORDERED: ondansetron/PF 4mg/2ml inj IV PRN (17:40)
[2023-03-03] MEDS ORDERED: LORazepam 2 mg/ml vial IV PRN (18:05)
[2023-03-03] MEDS ORDERED: LORazepam 0.5 MG tablet PO PRN (18:05)
[2023-03-03] MEDS: atorvastatin 20mg tablet PO SCH (22:23)
[2023-03-04] VITALS (18 sets, daily range): BP systolic 95–119; BP diastolic 37–65; PULSE 55–77; RESP 16–25; TEMP 97.3–98.6; O2SAT 92–98
[2023-03-04 00:10] LABS: BILIRUBIN,URINE NEGATIVE (Neg); CLARITY,URINE CLOUDY (Clear); COLOR,URINE YELLOW (Yellow); GLUCOSE, URINE NEGATIVE (Neg); KETONES,URINE NEGATIVE (Neg); LEUKOCYTE ESTERASE ,URINE NEGATIVE (Neg); NITRITES, URINE NEGATIVE (Neg); OCCULT BLOOD,URINE LARGE (Neg); PROTEIN,URINE 30 mg/dl (Neg); UROBILINOGEN,URINE 0.2 E.U/dL (0.2-1.0)
[2023-03-04 00:20] LABS: UA COLLECTION TYPE CLN CATCH MIDSTREAM
[2023-03-04 00:40] LABS: BACTERIA,URINE NONE SEEN /HPF (Neg); MUCUS STRANDS FEW /LPF (Neg); RBC,URINE TNTC /HPF (0-2); SQUAMOUS EPITHELIAL CELL,UR FEW /LPF (FEW); WBC,URINE 0-4 /HPF (0-4)
[2023-03-04] MEDS: albuterol 2.5 MG/3 ML nebule NEB SCH ×5 (03:33→23:24)
--- NOTE | 2023-03-04 06:40 | NUR ---
Patient in room PCU 3028. I have received report from Marina GREGORY and had the opportunity to ask questions and assume patient care.
--- NOTE | 2023-03-04 06:40 | NUR ---
Problems reprioritized. Patient report given, questions answered & plan of care reviewed with WANG Edward & COLT Ascencio.
[2023-03-04 07:41] LABS: BASOPHILS % (AUTO) 0.5 % (0-1); EOSINOPHILS # (AUTO) 0.1 X10'3 (0-0.9); EOSINOPHILS % (AUTO) 1.2 % (0-6); HEMATOCRIT 34.5 % (35.0-45.0); HEMOGLOBIN 10.7 g/dl (12.0-16.0); LYMPHOCYTES # (AUTO) 0.6 X10'3 (1.1-4.8); LYMPHOCYTES % (AUTO) 8.3 % (21-51); MEAN CORPUSCULAR HEMOGLOBIN 30.5 PG (27.0-31.0); MEAN CORPUSCULAR HGB CONC 30.9 g/dL (33.0-36.5); MEAN CORPUSCULAR VOLUME 98.6 FL (78-98); MEAN PLATELET VOLUME 8.2 FL (7.4-10.4); MONOCYTES # (AUTO) 0.7 X10'3 (0-0.9); MONOCYTES % (AUTO) 9.3 % (2-12); NEUTROPHILS # (AUTO) 5.9 X10'3 (1.8-7.7); NEUTROPHILS % (AUTO) 80.7 % (42-75); PLATELET COUNT 244 X10'3 (140-440); RED CELL DISTRIBUTION WIDTH 20.9 % (11.5-14.5); WHITE BLOOD COUNT 7.3 X10'3 (4.5-11.0)
[2023-03-04] MEDS: K and/or MAG REPLACEMENT MC SCH ×2 (08:00→20:00)
[2023-03-04 08:16] LABS: ALANINE AMINOTRANSFERASE 144 U/L (12-78); ALBUMIN 2.7 G/DL (3.4-5.0); ALBUMIN/GLOBULIN RATIO 0.9 (1.1-1.5); ALKALINE PHOSPHATASE 95 IU/L (46-116); ANION GAP 6 (8-16); ASPARTATE AMINO TRANSFERASE 80 U/L (10-37); BILIRUBIN,TOTAL 0.5 MG/DL (0.1-1.0); BLOOD UREA NITROGEN 61 MG/DL (7-18); BUN/CREATININE RATIO 40.4 (10.0-20.0); CHLORIDE 107 MMOL/L (99-107); CREATININE 1.51 MG/DL (0.40-0.90); GLUCOSE 76 MG/DL (70-104); MAGNESIUM 2.8 MG/DL (1.5-2.4); PHOSPHORUS 3.2 MG/DL (2.3-4.5); POTASSIUM 5.3 MMOL/L (3.5-5.1); SODIUM 143 MMOL/L (135-145); TOTAL CARBON DIOXIDE 30.3 MMOL/L (24-32); TOTAL PROTEIN 5.8 G/DL (6.4-8.2); eCRCL 26 ML/MIN; eGFR 33 ML/MIN
[2023-03-04] MEDS: cholecalciferol (vitamin D3) 1,000 unit (25mcg) tablet PO SCH (09:53)
[2023-03-04] MEDS: gabapentin 100mg capsule PO SCH (09:53)
[2023-03-04] MEDS: clopidogrel 75mg tablet PO SCH (09:53)
[2023-03-04] MEDS: nystatin 500,000 unit/5ML UD oral suspension PO SCH ×3 (09:53→20:40)
[2023-03-04] MEDS: vitamin B comp w/Vit. C tab 1 TAB TABLET PO SCH (09:53)
[2023-03-04] MEDS: sacubitril/valsartan 24mg-26mg tablet PO SCH ×2 (09:53→20:00)
[2023-03-04] MEDS: levoTHYROXINE 25mcg tablet PO SCH (09:54)
[2023-03-04] MEDS: atenolol 25mg tablet PO SCH (09:54)
[2023-03-04] MEDS: calcium carbonate 500mg tablet PO SCH ×2 (09:54→20:40)
[2023-03-04] MEDS: ferrous sulfate 325mg tablet PO SCH ×2 (09:54→20:40)
[2023-03-04] MEDS: pantoprazole 40mg Tablet.DR PO SCH ×2 (09:54→20:40)
[2023-03-04] MEDS ORDERED: albumin (human) 25% 100 ML IV solution IV ONE (10:25)
--- NOTE | 2023-03-04 17:33 | NUR ---
AGREE WITH LIFESTYLE COORDINATOR AM ASSESSMENT
[2023-03-04] MEDS: atorvastatin 20mg tablet PO SCH (20:41)
[2023-03-05] VITALS (10 sets, daily range): BP systolic 103–107; BP diastolic 40–50; PULSE 54–61; RESP 17–20; TEMP 97.9–98.6; O2SAT 90–96
[2023-03-05] MEDS: albuterol 2.5 MG/3 ML nebule NEB SCH ×4 (03:36→15:46)
--- NOTE | 2023-03-05 06:20 | NUR ---
Problems reprioritized. Patient report given, questions answered & plan of care reviewed with COLT CELIS.
[2023-03-05 06:31] LABS: ALANINE AMINOTRANSFERASE 147 U/L (12-78); ALBUMIN 2.9 G/DL (3.4-5.0); ALKALINE PHOSPHATASE 126 IU/L (46-116); ANION GAP 5 (8-16); ASPARTATE AMINO TRANSFERASE 93 U/L (10-37); BILIRUBIN,TOTAL 0.6 MG/DL (0.1-1.0); BLOOD UREA NITROGEN 63 MG/DL (7-18); BUN/CREATININE RATIO 34.6 (10.0-20.0); CALCIUM 9.1 MG/DL (8.5-10.1); CHLORIDE 104 MMOL/L (99-107); CREATININE 1.82 MG/DL (0.40-0.90); GLUCOSE 92 MG/DL (70-104); MAGNESIUM 2.8 MG/DL (1.5-2.4); POTASSIUM 5.4 MMOL/L (3.5-5.1); SODIUM 138 MMOL/L (135-145); TOTAL CARBON DIOXIDE 29.1 MMOL/L (24-32); TOTAL PROTEIN 5.8 G/DL (6.4-8.2); eCRCL 22 ML/MIN; eGFR 26 ML/MIN
[2023-03-05 06:47] LABS: BASOPHILS # (AUTO) 0.1 X10'3 (0-0.2); BASOPHILS % (AUTO) 0.8 % (0-1); EOSINOPHILS # (AUTO) 0.1 X10'3 (0-0.9); EOSINOPHILS % (AUTO) 1.7 % (0-6); HEMATOCRIT 29.7 % (35.0-45.0); HEMOGLOBIN 9.4 g/dl (12.0-16.0); LYMPHOCYTES # (AUTO) 0.6 X10'3 (1.1-4.8); LYMPHOCYTES % (AUTO) 7.4 % (21-51); MEAN CORPUSCULAR HEMOGLOBIN 31.3 PG (27.0-31.0); MEAN CORPUSCULAR HGB CONC 31.8 g/dL (33.0-36.5); MEAN CORPUSCULAR VOLUME 98.5 FL (78-98); MEAN PLATELET VOLUME 8.4 FL (7.4-10.4); MONOCYTES # (AUTO) 0.8 X10'3 (0-0.9); MONOCYTES % (AUTO) 10.5 % (2-12); NEUTROPHILS # (AUTO) 5.9 X10'3 (1.8-7.7); NEUTROPHILS % (AUTO) 79.6 % (42-75); PLATELET COUNT 208 X10'3 (140-440); RED BLOOD COUNT 3.01 X10'6 (4.20-5.60); RED CELL DISTRIBUTION WIDTH 20.6 % (11.5-14.5); WHITE BLOOD COUNT 7.5 X10'3 (4.5-11.0)
[2023-03-05] MEDS: ferrous sulfate 325mg tablet PO SCH (07:51)
[2023-03-05] MEDS: nystatin 500,000 unit/5ML UD oral suspension PO SCH ×2 (07:51→14:48)
[2023-03-05] MEDS: clopidogrel 75mg tablet PO SCH (07:51)
[2023-03-05] MEDS: vitamin B comp w/Vit. C tab 1 TAB TABLET PO SCH (07:51)
[2023-03-05] MEDS: levoTHYROXINE 25mcg tablet PO SCH (07:51)
[2023-03-05] MEDS: cholecalciferol (vitamin D3) 1,000 unit (25mcg) tablet PO SCH (07:52)
[2023-03-05] MEDS: calcium carbonate 500mg tablet PO SCH (07:52)
[2023-03-05] MEDS: pantoprazole 40mg Tablet.DR PO SCH (07:52)
[2023-03-05] MEDS: gabapentin 100mg capsule PO SCH (07:52)
[2023-03-05] MEDS: atenolol 25mg tablet PO SCH (07:53)
[2023-03-05] MEDS: sacubitril/valsartan 24mg-26mg tablet PO SCH (07:53)
[2023-03-05] MEDS: K and/or MAG REPLACEMENT MC SCH (07:54)
[2023-03-05 09:14] LABS: PRO BRAIN NATRIURETIC PEPTIDE 21305 PG/ML (0-450)
[2023-03-05] MEDS ORDERED: sodium polystyrene sulfonate 15gm/60ml oral suspension PO ONE (11:30)
[2023-03-05] MEDS ORDERED: furosemide 20 MG/2 ML vial IV ONE (11:30)
[2023-03-05] MEDS ORDERED: albumin (human) 25% 100 ML IV solution IV ONE (11:30)
--- NOTE | 2023-03-05 13:02 | NUR ---
FC DC'd, no issues, patient tolerated well
--- NOTE | 2023-03-05 15:18 | NUR ---
Attempted to give report to RPA, nurse unable to answer call and will return call to [phone]
--- NOTE | 2023-03-05 16:02 | NUR ---
Report called into RPA.
--- NOTE | 2023-03-05 16:30 | NUR ---
Patient discharged with Kamila Cargo
== END 2023-03-05 16:30 | DRG 377 ==
LOC: ER 12:22 → ED HOLD 18:07 → PCU 3S 02-23 07:08
PROVIDERS: ADMIT Internal Medicine; ATTEND Internal Medicine
PROC: 30233N1 Transfusion of Nonautologous Red Blood Cells into Peripheral Vein, Percutaneous Approach (ICD-10-PCS; 2023-02-22)
PROC: 0DJ08ZZ Inspection of Upper Intestinal Tract, Via Natural or Artificial Opening Endoscopic (ICD-10-PCS; principal; 2023-02-24)
DX: K25.4 Chronic or unspecified gastric ulcer with hemorrhage (principal); J18.9 Pneumonia, unspecified organism; B37.0 Candidal stomatitis; I13.0 Hypertensive heart and chronic kidney disease with heart failure and stage 1 through stage 4 chronic kidney disease, or unspecified chronic kidney disease; N17.9 Acute kidney failure, unspecified; N18.4 Chronic kidney disease, stage 4 (severe); D64.9 Anemia, unspecified; E78.00 Pure hypercholesterolemia, unspecified; E86.0 Dehydration; G62.9 Polyneuropathy, unspecified; I27.20 Pulmonary hypertension, unspecified; E88.09 Other disorders of plasma-protein metabolism, not elsewhere classified; I50.9 Heart failure, unspecified; I73.9 Peripheral vascular disease, unspecified; I25.10 Atherosclerotic heart disease of native coronary artery without angina pectoris; K44.9 Diaphragmatic hernia without obstruction or gangrene; I48.91 Unspecified atrial fibrillation; Z90.49 Acquired absence of other specified parts of digestive tract; Z82.3 Family history of stroke; Z95.0 Presence of cardiac pacemaker; Z95.2 Presence of prosthetic heart valve
CPT/HCPCS: 36415; 36430; 36600; 43235; 70450; 71045; 71046; 71250; 72148; 74176; 76770; 80048; 80053; 80076; 81001; 81003; 82272; 82570; 82803; 83605; 83735; 83880; 84100; 84145; 84156; 84300; 84439; 84443; 84484; 85007; 85008; 85018; 85025; 85379; 85610; 86885; 86900; 86901; 86920; 87040; 87081; 87207; 93005; 93306; 94640; 94760; 97116; 97161; 97530; 99152; 99285; A4314; A4615; A4620; C9113; G0378; J0456; J0696; J1940; J1956; J2250; J2405; J2920; J3010; J7030; J7040; P9016; P9045; P9047

== ENCOUNTER 2023-03-13 12:33 | Inpatient (IN) | payer MEDICARE ==
[~2023-03-13] VITALS: Ht 162.6 cm; Wt 67.2 kg
[~2023-03-13 12:33] MED LIST changes: +CLOP75TA34 PO
[2023-03-13 13:42] LABS: APTT 31 SECONDS (22-32); PROTHROMBIN TIME 10.9 SECONDS (9.0-12.0)
[2023-03-13 13:44] LABS: BASOPHILS # (AUTO) 0.2 X10'3 (0-0.2); BASOPHILS % (AUTO) 1.7 % (0-1); EOSINOPHILS # (AUTO) 0.2 X10'3 (0-0.9); EOSINOPHILS % (AUTO) 1.7 % (0-6); HEMATOCRIT 32.3 % (35.0-45.0); HEMOGLOBIN 10.4 g/dl (12.0-16.0); LYMPHOCYTES # (AUTO) 1.4 X10'3 (1.1-4.8); LYMPHOCYTES % (AUTO) 13.3 % (21-51); MEAN CORPUSCULAR HEMOGLOBIN 31.3 PG (27.0-31.0); MEAN CORPUSCULAR HGB CONC 32.2 g/dL (33.0-36.5); MEAN CORPUSCULAR VOLUME 97.1 FL (78-98); MEAN PLATELET VOLUME 7.6 FL (7.4-10.4); MONOCYTES # (AUTO) 0.8 X10'3 (0-0.9); MONOCYTES % (AUTO) 7.9 % (2-12); NEUTROPHILS # (AUTO) 8.1 X10'3 (1.8-7.7); NEUTROPHILS % (AUTO) 75.4 % (42-75); PLATELET COUNT 438 X10'3 (140-440); RED BLOOD COUNT 3.32 X10'6 (4.20-5.60); WHITE BLOOD COUNT 10.8 X10'3 (4.5-11.0)
[2023-03-13 13:46] LABS: ALANINE AMINOTRANSFERASE 121 U/L (12-78); ALBUMIN 2.7 G/DL (3.4-5.0); ALBUMIN/GLOBULIN RATIO 0.8 (1.1-1.5); ALKALINE PHOSPHATASE 157 IU/L (46-116); ANION GAP 5 (8-16); ASPARTATE AMINO TRANSFERASE 62 U/L (10-37); BILIRUBIN,TOTAL 0.3 MG/DL (0.1-1.0); BLOOD UREA NITROGEN 49 MG/DL (7-18); BUN/CREATININE RATIO 29.9 (10.0-20.0); CALCIUM 8.6 MG/DL (8.5-10.1); CHLORIDE 104 MMOL/L (99-107); CREATININE 1.64 MG/DL (0.40-0.90); ETHANOL < 10 MG/DL (<10); GLUCOSE 90 MG/DL (70-104); MAGNESIUM 2.7 MG/DL (1.5-2.4); POTASSIUM 4.4 MMOL/L (3.5-5.1); SODIUM 137 MMOL/L (135-145); TOTAL CARBON DIOXIDE 27.6 MMOL/L (24-32); eCRCL 22 ML/MIN; eGFR 30 ML/MIN
[2023-03-13 14:25] LABS: ANISOCYTOSIS 2+; PLATELET ESTIMATE NORMAL
[2023-03-13 14:26] LABS: BURR CELLS FEW; ELLIPTOCYTES FEW
[2023-03-13 14:27] LABS: SCHISTOCYTES FEW
[2023-03-13 14:35] LABS: URINE AMPHETAMINE SCREEN NEGATIVE (Neg); URINE BARBITUATE SCREEN NEGATIVE (Neg); URINE BENZODIAZEPINES SCREEN NEGATIVE (Neg); URINE CANNABINOID SCREEN NEGATIVE (Neg); URINE COCAINE SCREEN NEGATIVE (Neg); URINE METHADONE SCREEN NEGATIVE (Neg); URINE OPIATE SCREEN POSITIVE (Neg); URINE PHENCYCLIDINE SCREEN NEGATIVE (Neg)
--- NOTE | 2023-03-13 14:41 | NUR ---
PT PUT HAS FIRM HARD STOMACH, SUPRAPUBIC PAIN, DR PARMAR NOTIFIED
--- NOTE | 2023-03-13 14:42 | NUR ---
PT HAS 3 WOUNDS ON COCCYX, WITH ERYTHEMA Addendum: 03/13/23 at 1446 by [email or web address] PT HAS 3 AREAS OF BROKEN SKIN ON COCCYX, SURROUNDED BY LARGE AREA OF ERYTHEMA
[2023-03-13 15:50] LABS: BILIRUBIN,URINE NEGATIVE (Neg); CLARITY,URINE CLEAR (Clear); COLOR,URINE YELLOW (Yellow); GLUCOSE, URINE NEGATIVE (Neg); KETONES,URINE NEGATIVE (Neg); LEUKOCYTE ESTERASE ,URINE NEGATIVE (Neg); NITRITES, URINE NEGATIVE (Neg); OCCULT BLOOD,URINE TRACE-INTACT (Neg); PH,URINE 5.5 (4.8-8.0); PROTEIN,URINE NEGATIVE (Neg); UA COLLECTION TYPE FOLEY CATH; UROBILINOGEN,URINE 0.2 E.U/dL (0.2-1.0)
[2023-03-13] MEDS ORDERED: furosemide 10 MG/1 ML 10ml inj IV ONE (15:50)
[2023-03-13 16:05] LABS: BACTERIA,URINE 3+ /HPF (Neg); RBC,URINE 0-2 /HPF (0-2); SQUAMOUS EPITHELIAL CELL,UR FEW /LPF (FEW); WBC,URINE 0-4 /HPF (0-4)
[2023-03-13] MEDS ORDERED: VITA-268 PO (16:05)
[2023-03-13] MEDS ORDERED: CLOP75TA34 PO (16:05)
[2023-03-13] MEDS ORDERED: ATEN25TA7 PO (16:05)
[2023-03-13] MEDS ORDERED: FURO-150 PO (16:05)
[2023-03-13] MEDS ORDERED: HYDR-3973 PO (16:05)
[2023-03-13] MEDS ORDERED: LYR75C PO (16:05)
[2023-03-13] MEDS ORDERED: CHOL100046 PO (16:05)
[2023-03-13] MEDS ORDERED: ALBU2.5V12 NEB (16:05)
[2023-03-13 16:06] LABS: PRO BRAIN NATRIURETIC PEPTIDE 5437 PG/ML (0-450)
[2023-03-13] MEDS ORDERED: LEVO25TA7 PO (16:12)
[2023-03-13] MEDS ORDERED: PANT-47 PO (16:12)
[2023-03-13] MEDS ORDERED: FERR-39 PO (16:12)
[2023-03-13] MEDS ORDERED: ATOR40TA71 PO (16:12)
[2023-03-13] MEDS ORDERED: CALC-437 PO (16:12)
[2023-03-13] MEDS ORDERED: SACU1TAB PO (16:12)
[2023-03-13] MEDS ORDERED: AMIO200T72 PO (16:12)
[2023-03-13] MEDS ORDERED: acetaminophen 325mg tablet PO PRN ×2 (17:30)
[2023-03-13] MEDS ORDERED: magnesium Cl slow-release 64mg tablet PO PRN (17:30)
[2023-03-13] MEDS ORDERED: ondansetron/PF 4mg/2ml inj IV PRN (17:30)
[2023-03-13] MEDS ORDERED: potassium Cl 40MEQ/1/2NS 520ml 520 ML IV PRN (17:30)
[2023-03-13] MEDS ORDERED: magnesium 2GM in 50ml NS 50 ML IV PRN (17:30)
[2023-03-13] MEDS ORDERED: morphine 2 MG/ML inj. syringe IV PRN (17:30)
[2023-03-13] MEDS ORDERED: magnesium 4gm in 100ml NS 100 ML IV PRN (17:30)
[2023-03-13] MEDS ORDERED: potassium Cl 20 mEq SR tablet PO PRN ×2 (17:30)
[2023-03-13] MEDS ORDERED: HYDROcodone/acetaminophen 5mg/325mg tablet PO PRN (17:30)
--- NOTE | 2023-03-13 19:27 | NUR ---
FOOD TRAY PROVIDED
[2023-03-13] MEDS: furosemide 20 MG/2 ML vial IV SCH (20:00)
[2023-03-13] MEDS: albuterol 2.5 MG/3 ML nebule NEB SCH (21:37)
[2023-03-13 21:40] VITALS: PULSE 50; RESP 16; O2SAT 93
[2023-03-13 21:49] VITALS: PULSE 50; RESP 16
[2023-03-13] MEDS: heparin, porcine 5000 units/ml vial SQ SCH (22:25)
[2023-03-14] VITALS (13 sets, daily range): BP systolic 100–113; BP diastolic 36–47; PULSE 50–61; RESP 14–20; TEMP 97.5–98.7; O2SAT 88–99
[2023-03-14] MEDS: albuterol 2.5 MG/3 ML nebule NEB SCH ×4 (03:34→20:19)
--- NOTE | 2023-03-14 07:45 | NUR ---
ECHO AT BEDSIDE.
[2023-03-14 07:52] LABS: BASOPHILS # (AUTO) 0.1 X10'3 (0-0.2); BASOPHILS % (AUTO) 1.2 % (0-1); EOSINOPHILS # (AUTO) 0.1 X10'3 (0-0.9); EOSINOPHILS % (AUTO) 1.1 % (0-6); LYMPHOCYTES # (AUTO) 1.4 X10'3 (1.1-4.8); LYMPHOCYTES % (AUTO) 14.9 % (21-51); MEAN CORPUSCULAR HEMOGLOBIN 31.3 PG (27.0-31.0); MEAN CORPUSCULAR HGB CONC 32.2 g/dL (33.0-36.5); MEAN CORPUSCULAR VOLUME 97.2 FL (78-98); MEAN PLATELET VOLUME 7.8 FL (7.4-10.4); MONOCYTES # (AUTO) 0.8 X10'3 (0-0.9); NEUTROPHILS # (AUTO) 7.2 X10'3 (1.8-7.7); NEUTROPHILS % (AUTO) 74.8 % (42-75); PLATELET COUNT 357 X10'3 (140-440); RED BLOOD COUNT 2.88 X10'6 (4.20-5.60); WHITE BLOOD COUNT 9.6 X10'3 (4.5-11.0)
[2023-03-14] MEDS: furosemide 20 MG/2 ML vial IV SCH ×2 (08:00→20:36)
[2023-03-14 08:07] LABS: ALANINE AMINOTRANSFERASE 89 U/L (12-78); ALBUMIN 2.3 G/DL (3.4-5.0); ALBUMIN/GLOBULIN RATIO 0.8 (1.1-1.5); ALKALINE PHOSPHATASE 128 IU/L (46-116); ANION GAP 6 (8-16); ASPARTATE AMINO TRANSFERASE 48 U/L (10-37); BILIRUBIN,TOTAL 0.2 MG/DL (0.1-1.0); BLOOD UREA NITROGEN 41 MG/DL (7-18); BUN/CREATININE RATIO 26.3 (10.0-20.0); CALCIUM 8.1 MG/DL (8.5-10.1); CHLORIDE 106 MMOL/L (99-107); CREATININE 1.56 MG/DL (0.40-0.90); GLUCOSE 111 MG/DL (70-104); POTASSIUM 3.8 MMOL/L (3.5-5.1); SODIUM 138 MMOL/L (135-145); TOTAL CARBON DIOXIDE 25.8 MMOL/L (24-32); TOTAL PROTEIN 5.2 G/DL (6.4-8.2); eCRCL 23 ML/MIN; eGFR 32 ML/MIN
[2023-03-14] MEDS ORDERED: HYDROcodone/acetaminophen 10/325mg tab PO PRN (10:00)
[2023-03-14] MEDS ORDERED: albuterol 2.5 MG/3 ML nebule NEB PRN (10:00)
[2023-03-14 10:03] LABS: ANISOCYTOSIS 2+; BURR CELLS FEW; ELLIPTOCYTES FEW; PLATELET ESTIMATE NORMAL; SCHISTOCYTES FEW; TEAR DROP CELLS FEW; TOTAL CELLS COUNTED 100
[2023-03-14] MEDS: heparin, porcine 5000 units/ml vial SQ SCH ×2 (13:56→20:33)
--- NOTE | 2023-03-14 18:29 | NUR ---
Problems reprioritized. Patient report given, questions answered & plan of care reviewed with Mickie RN, patient stable at transfer of care.
[2023-03-14] MEDS: ferrous sulfate 325mg tablet PO SCH (20:31)
[2023-03-14] MEDS: calcium carbonate 500mg tablet PO SCH (20:32)
[2023-03-14] MEDS: atorvastatin 20mg tablet PO SCH (20:32)
[2023-03-14] MEDS: pantoprazole 40mg Tablet.DR PO SCH (20:33)
[2023-03-14] MEDS: sacubitril/valsartan 24mg-26mg tablet PO SCH (20:36)
[2023-03-15] VITALS (16 sets, daily range): BP systolic 105–134; BP diastolic 35–73; PULSE 50–57; RESP 9–20; TEMP 97.5–98.9; O2SAT 91–96
[2023-03-15] MEDS: albuterol 2.5 MG/3 ML nebule NEB SCH ×4 (02:30→21:22)
--- NOTE | 2023-03-15 06:08 | NUR ---
Problems reprioritized. Patient report given, questions answered & plan of care reviewed with Litzy Jj
[2023-03-15 06:39] LABS: BASOPHILS # (AUTO) 0.1 X10'3 (0-0.2); BASOPHILS % (AUTO) 0.7 % (0-1); EOSINOPHILS # (AUTO) 0.1 X10'3 (0-0.9); EOSINOPHILS % (AUTO) 1.8 % (0-6); HEMATOCRIT 27.8 % (35.0-45.0); HEMOGLOBIN 9.1 g/dl (12.0-16.0); LYMPHOCYTES # (AUTO) 1.4 X10'3 (1.1-4.8); LYMPHOCYTES % (AUTO) 17.5 % (21-51); MEAN CORPUSCULAR HEMOGLOBIN 31.9 PG (27.0-31.0); MEAN CORPUSCULAR HGB CONC 32.8 g/dL (33.0-36.5); MEAN CORPUSCULAR VOLUME 97.2 FL (78-98); MEAN PLATELET VOLUME 7.6 FL (7.4-10.4); MONOCYTES # (AUTO) 0.8 X10'3 (0-0.9); MONOCYTES % (AUTO) 10.3 % (2-12); NEUTROPHILS # (AUTO) 5.7 X10'3 (1.8-7.7); NEUTROPHILS % (AUTO) 69.7 % (42-75); PLATELET COUNT 300 X10'3 (140-440); RED BLOOD COUNT 2.86 X10'6 (4.20-5.60); RED CELL DISTRIBUTION WIDTH 20.1 % (11.5-14.5); WHITE BLOOD COUNT 8.1 X10'3 (4.5-11.0)
[2023-03-15 06:56] LABS: ALANINE AMINOTRANSFERASE 82 U/L (12-78); ALBUMIN 2.6 G/DL (3.4-5.0); ALBUMIN/GLOBULIN RATIO 0.8 (1.1-1.5); ALKALINE PHOSPHATASE 124 IU/L (46-116); ANION GAP 5 (8-16); ASPARTATE AMINO TRANSFERASE 50 U/L (10-37); BILIRUBIN,TOTAL 0.4 MG/DL (0.1-1.0); BLOOD UREA NITROGEN 31 MG/DL (7-18); BUN/CREATININE RATIO 21.8 (10.0-20.0); CALCIUM 8.5 MG/DL (8.5-10.1); CHLORIDE 106 MMOL/L (99-107); CREATININE 1.42 MG/DL (0.40-0.90); GLUCOSE 87 MG/DL (70-104); SODIUM 137 MMOL/L (135-145); TOTAL PROTEIN 5.7 G/DL (6.4-8.2); eCRCL 25 ML/MIN; eGFR 35 ML/MIN
[2023-03-15 07:17] LABS: % IRON SATURATION 12 % (11-46); IRON 33 UG/DL (49-151); TOTAL IRON BINDING CAPACITY 280 UG/DL (259-388)
[2023-03-15] MEDS: sacubitril/valsartan 24mg-26mg tablet PO SCH ×2 (08:00→21:57)
[2023-03-15] MEDS: pantoprazole 40mg Tablet.DR PO SCH ×2 (08:29→21:56)
[2023-03-15] MEDS: amiodarone 200mg tablet PO SCH (08:29)
[2023-03-15] MEDS: atenolol 25mg tablet PO SCH (08:30)
[2023-03-15] MEDS: vitamin B comp w/Vit. C tab 1 TAB TABLET PO SCH (08:30)
[2023-03-15] MEDS: pregabalin 75mg capsule PO SCH (08:31)
[2023-03-15] MEDS: clopidogrel 75mg tablet PO SCH (08:31)
[2023-03-15] MEDS: levoTHYROXINE 25mcg tablet PO SCH (08:32)
[2023-03-15] MEDS: ferrous sulfate 325mg tablet PO SCH ×2 (08:32→21:56)
[2023-03-15] MEDS: calcium carbonate 500mg tablet PO SCH ×2 (08:32→21:57)
[2023-03-15] MEDS: furosemide 20 MG/2 ML vial IV SCH ×2 (08:35→21:58)
[2023-03-15] MEDS: heparin, porcine 5000 units/ml vial SQ SCH ×2 (08:36→21:58)
[2023-03-15] MEDS ORDERED: ondansetron 4mg rapidly disintigrating tab PO PRN (12:30)
--- NOTE | 2023-03-15 18:22 | NUR ---
Patient in room PCU 3016. I have received report from Amelie and had the opportunity to ask questions and assume patient care.
[2023-03-15] MEDS ORDERED: iron sucrose complex injection 500 MG in normal saline 250ml IV soln 250 ML IV ONE (20:50)
[2023-03-15] MEDS: atorvastatin 20mg tablet PO SCH (21:56)
[2023-03-16] VITALS (17 sets, daily range): BP systolic 97–122; BP diastolic 40–55; PULSE 50–68; RESP 12–18; TEMP 97.6–99.4; O2SAT 91–98
--- NOTE | 2023-03-16 03:04 | NUR ---
Discontinued pt macdonald catheter at this time.
[2023-03-16] MEDS: albuterol 2.5 MG/3 ML nebule NEB SCH ×4 (03:09→20:17)
--- NOTE | 2023-03-16 03:30 | NUR ---
Ambulated pt [address] with FWW. Pt was weak and needed frequent stopping breaks but was eager and enthusiastic to walk, even at 0330.
--- NOTE | 2023-03-16 06:15 | NUR ---
Problems reprioritized. Patient report given, questions answered & plan of care reviewed with Amelie (RN).
[2023-03-16] MEDS: levoTHYROXINE 25mcg tablet PO SCH (07:00)
[2023-03-16 07:30] LABS: BASOPHILS # (AUTO) 0.1 X10'3 (0-0.2); BASOPHILS % (AUTO) 1.3 % (0-1); EOSINOPHILS # (AUTO) 0.2 X10'3 (0-0.9); EOSINOPHILS % (AUTO) 2.5 % (0-6); HEMATOCRIT 28.8 % (35.0-45.0); HEMOGLOBIN 9.4 g/dl (12.0-16.0); LYMPHOCYTES # (AUTO) 1.1 X10'3 (1.1-4.8); LYMPHOCYTES % (AUTO) 14.4 % (21-51); MEAN CORPUSCULAR HEMOGLOBIN 31.7 PG (27.0-31.0); MEAN CORPUSCULAR HGB CONC 32.4 g/dL (33.0-36.5); MEAN CORPUSCULAR VOLUME 97.6 FL (78-98); MEAN PLATELET VOLUME 7.6 FL (7.4-10.4); MONOCYTES # (AUTO) 0.8 X10'3 (0-0.9); MONOCYTES % (AUTO) 10.7 % (2-12); NEUTROPHILS # (AUTO) 5.5 X10'3 (1.8-7.7); NEUTROPHILS % (AUTO) 71.1 % (42-75); PLATELET COUNT 261 X10'3 (140-440); RED BLOOD COUNT 2.95 X10'6 (4.20-5.60); RED CELL DISTRIBUTION WIDTH 20.1 % (11.5-14.5); WHITE BLOOD COUNT 7.7 X10'3 (4.5-11.0)
[2023-03-16 07:56] LABS: ALANINE AMINOTRANSFERASE 70 U/L (12-78); ALBUMIN 2.4 G/DL (3.4-5.0); ALBUMIN/GLOBULIN RATIO 0.8 (1.1-1.5); ALKALINE PHOSPHATASE 114 IU/L (46-116); ANION GAP 3 (8-16); ASPARTATE AMINO TRANSFERASE 46 U/L (10-37); BILIRUBIN,TOTAL 0.4 MG/DL (0.1-1.0); BLOOD UREA NITROGEN 24 MG/DL (7-18); CALCIUM 8.4 MG/DL (8.5-10.1); CHLORIDE 107 MMOL/L (99-107); CREATININE 1.26 MG/DL (0.40-0.90); GLUCOSE 87 MG/DL (70-104); POTASSIUM 3.8 MMOL/L (3.5-5.1); SODIUM 138 MMOL/L (135-145); TOTAL CARBON DIOXIDE 27.6 MMOL/L (24-32); TOTAL PROTEIN 5.3 G/DL (6.4-8.2); eCRCL 28 ML/MIN; eGFR 40 ML/MIN
[2023-03-16 08:10] LABS: PLATELET ESTIMATE NORMAL; POLYCHROMASIA FEW
[2023-03-16 08:11] LABS: ANISOCYTOSIS 3+; ELLIPTOCYTES FEW; SCHISTOCYTES FEW; TEAR DROP CELLS FEW
[2023-03-16] MEDS: ferrous sulfate 325mg tablet PO SCH ×2 (08:55→21:39)
[2023-03-16] MEDS: calcium carbonate 500mg tablet PO SCH ×2 (08:55→21:38)
[2023-03-16] MEDS: amiodarone 200mg tablet PO SCH (08:56)
[2023-03-16] MEDS: vitamin B comp w/Vit. C tab 1 TAB TABLET PO SCH (08:56)
[2023-03-16] MEDS: pantoprazole 40mg Tablet.DR PO SCH ×2 (08:56→21:38)
[2023-03-16] MEDS: pregabalin 75mg capsule PO SCH (08:56)
[2023-03-16] MEDS: clopidogrel 75mg tablet PO SCH (08:56)
[2023-03-16] MEDS: atenolol 25mg tablet PO SCH (08:57)
[2023-03-16] MEDS: heparin, porcine 5000 units/ml vial SQ SCH ×2 (08:58→21:37)
[2023-03-16] MEDS: furosemide 20 MG/2 ML vial IV SCH ×2 (08:58→21:37)
[2023-03-16] MEDS: sacubitril/valsartan 24mg-26mg tablet PO SCH ×2 (09:12→21:39)
--- NOTE | 2023-03-16 14:16 | NUR ---
PRESSURE ULCER EDUCATION: DEFINITION: A pressure ulcer is an area of skin that breaks down when you stay in one position too long. The constant pressure against the skin reduces the blood flow to that area and the affected tissue dies. CAUSES: "Being bedridden or in a wheelchair "Fragile skin "Having a chronic condition, such as diabetes or vascular disease "Inability to move certain parts of your body without assistance "Older age "Incontinence of urine or stool SYMPTOMS: "A reddened area that DOES NOT turn white when pressed on - this can be the beginning of a pressure ulcer "A blister, deep sore or a crater - these can be advanced pressure ulcers FIRST AID: "Relieve the pressure on this area "Keep the area clean and dry "Call your primary doctor if you see any of the above symptoms "DO NOT massage the area "DO NOT use a donut shaped or ring shaped pillow- these actually interfere with the blood flow and cause complications PREVENTION: "Check for pressure ulcers everyday "Change position at least every two hours to relieve pressure "Use items that help relieve pressure- pillows, sheepskin, foam padding, and powders. "Keep skin clean and dry "Eat healthy well balanced meals "Exercise daily IF YOU SEE ANY OF THESE SYMPTOMS WHILE IN THE HOSPITAL - TELL YOUR NURSE IMMEDIATELY. IF YOU SEE ANY OF THESE SYMPTOMS WHILE AT HOME OR HAVE ANY QUESTIONS OR CONCERNS ABOUT PRESSURE ULCERS - CALL YOUR PRIMARY DOCTOR IMMEDIATELY. Addendum: 03/16/23 at 1417 by Terry Cornejo RN Amended: Links added.
--- NOTE | 2023-03-16 19:42 | NUR ---
Ambulates using walker with nursing stand by assist 300 feet
--- NOTE | 2023-03-16 21:00 | NUR ---
Pt stated that she hasn't voided since f/c has been removed. Assisted [place] to the [facility], pt unable to void. Bladder scan read >1000ml. Dr. michell monroy and ed in AM. Addendum: 03/16/23 at 2252 by Tova De La Fuente RN Amended: Links added.
[2023-03-16] MEDS: linezolid 600mg tablet PO SCH (21:38)
[2023-03-16] MEDS: atorvastatin 20mg tablet PO SCH (21:39)
[2023-03-17] VITALS (12 sets, daily range): BP systolic 105–111; BP diastolic 42–71; PULSE 50–54; RESP 15–18; TEMP 98.1–98.2; O2SAT 92–100
[2023-03-17] MEDS: albuterol 2.5 MG/3 ML nebule NEB SCH ×4 (03:00→19:42)
--- NOTE | 2023-03-17 06:37 | NUR ---
Problems reprioritized. Patient report given, questions answered & plan of care reviewed with Jenae GREGORY. Addendum: 03/17/23 at 0638 by Tova De La Fuente RN Amended: Links added.
[2023-03-17 07:09] LABS: BASOPHILS # (AUTO) 0.1 X10'3 (0-0.2); EOSINOPHILS # (AUTO) 0.2 X10'3 (0-0.9); HEMOGLOBIN 9.1 g/dl (12.0-16.0); MONOCYTES # (AUTO) 0.8 X10'3 (0-0.9); NEUTROPHILS # (AUTO) 3.6 X10'3 (1.8-7.7); WHITE BLOOD COUNT 6.1 X10'3 (4.5-11.0)
[2023-03-17 07:11] LABS: BASOPHILS % (AUTO) 2.1 % (0-1); EOSINOPHILS % (AUTO) 3.3 % (0-6); HEMATOCRIT 28.5 % (35.0-45.0); LYMPHOCYTES # (AUTO) 1.3 X10'3 (1.1-4.8); MEAN CORPUSCULAR HEMOGLOBIN 31.2 PG (27.0-31.0); MEAN CORPUSCULAR VOLUME 97.4 FL (78-98); MEAN PLATELET VOLUME 7.9 FL (7.4-10.4); MONOCYTES % (AUTO) 13.1 % (2-12); NEUTROPHILS % (AUTO) 59.5 % (42-75); PLATELET COUNT 250 X10'3 (140-440); RED BLOOD COUNT 2.92 X10'6 (4.20-5.60); RED CELL DISTRIBUTION WIDTH 19.6 % (11.5-14.5)
[2023-03-17 07:38] LABS: ALANINE AMINOTRANSFERASE 64 U/L (12-78); ALBUMIN 2.5 G/DL (3.4-5.0); ALBUMIN/GLOBULIN RATIO 0.9 (1.1-1.5); ALKALINE PHOSPHATASE 109 IU/L (46-116); ANION GAP 4 (8-16); ASPARTATE AMINO TRANSFERASE 45 U/L (10-37); BILIRUBIN,TOTAL 0.5 MG/DL (0.1-1.0); BLOOD UREA NITROGEN 23 MG/DL (7-18); BUN/CREATININE RATIO 16.4 (10.0-20.0); CALCIUM 8.5 MG/DL (8.5-10.1); CHLORIDE 106 MMOL/L (99-107); GLUCOSE 79 MG/DL (70-104); POTASSIUM 4.1 MMOL/L (3.5-5.1); SODIUM 139 MMOL/L (135-145); TOTAL CARBON DIOXIDE 29.2 MMOL/L (24-32); TOTAL PROTEIN 5.4 G/DL (6.4-8.2); eCRCL 25 ML/MIN; eGFR 36 ML/MIN
[2023-03-17 08:06] LABS: THYROID STIMULATING HORMONE 110.68 ulU/ml (0.34-4.50)
[2023-03-17] MEDS ORDERED: levoTHYROXINE 75mcg tablet PO ONE (08:15)
[2023-03-17 09:04] LABS: FREE T4 (FREE THYROXINE) 0.43 NG/DL (0.73-1.40)
[2023-03-17] MEDS: furosemide 20 MG/2 ML vial IV SCH ×2 (09:18→20:45)
[2023-03-17] MEDS: amiodarone 200mg tablet PO SCH (09:24)
[2023-03-17] MEDS: sacubitril/valsartan 24mg-26mg tablet PO SCH ×2 (09:24→20:45)
[2023-03-17] MEDS: heparin, porcine 5000 units/ml vial SQ SCH ×2 (09:24→20:46)
[2023-03-17] MEDS: ferrous sulfate 325mg tablet PO SCH ×2 (09:24→20:45)
[2023-03-17] MEDS: vitamin B comp w/Vit. C tab 1 TAB TABLET PO SCH (09:24)
[2023-03-17] MEDS: clopidogrel 75mg tablet PO SCH (09:24)
[2023-03-17] MEDS: calcium carbonate 500mg tablet PO SCH ×2 (09:24→20:45)
[2023-03-17] MEDS: pantoprazole 40mg Tablet.DR PO SCH ×2 (09:25→20:45)
[2023-03-17] MEDS: linezolid 600mg tablet PO SCH ×2 (09:25→20:45)
[2023-03-17] MEDS: pregabalin 75mg capsule PO SCH (09:25)
--- NOTE | 2023-03-17 10:27 | NUR ---
Initial: Pt admit for CHF and peripheral edema with acute worsening of chronic renal failure. Per physician progress notes pt with MDRO UTI. Pt started on routine Zyvox. Pt would benefit from low tyramine nutrition therapy education if she continues on this abx. Pt currently on a heart healthy diet and overall eating well for age, documented with average 63% PO intake of meals meeting 95% estimated energy needs and 91% estimated protein needs. Noted pt -4.19 kg since admit, possibly r/t changes in fluid status with -8 L cumulative fluid balance while receiving Lasix. LBM 03/15 per I&O. Will continue to follow and monitor need for nutrition intervention. Recommendations: 1) Continue heart healthy diet 2) Monitor need for ONS/nutrition intervention 3) Routine bowel care 4) Daily scaled weights per rx 5) Low tyramine nutrition therapy education as appropriate Addendum: 03/17/23 at [address] Amended: Links added.
[2023-03-17] MEDS ORDERED: LidoCAINE 2% Topical Jelly 11mL syringe TOP ONE (11:55)
--- NOTE | 2023-03-17 12:27 | NUR ---
patient unable to pee, bladder scanned 760 in bladder. . Seen by Dr cortes macdonald catheter placed.
[2023-03-17] MEDS: atorvastatin 20mg tablet PO SCH (20:45)
[2023-03-18] VITALS (15 sets, daily range): BP systolic 95–123; BP diastolic 33–43; PULSE 49–88; RESP 14–29; TEMP 96.7–98.9; O2SAT 90–98
[2023-03-18] MEDS: albuterol 2.5 MG/3 ML nebule NEB SCH ×4 (02:42→19:52)
--- NOTE | 2023-03-18 05:51 | NUR ---
comfortable night no complaints.
--- NOTE | 2023-03-18 06:53 | NUR ---
Problems reprioritized. Patient report given, questions answered & plan of care reviewed with Alok RN.
--- NOTE | 2023-03-18 06:59 | NUR ---
Patient in room PCU 3019. I have received report from Regulo GREGORY and had the opportunity to ask questions and assume patient care.
[2023-03-18 07:27] LABS: BASOPHILS # (AUTO) 0.1 X10'3 (0-0.2); BASOPHILS % (AUTO) 1.3 % (0-1); EOSINOPHILS # (AUTO) 0.4 X10'3 (0-0.9); EOSINOPHILS % (AUTO) 5.8 % (0-6); HEMATOCRIT 28.3 % (35.0-45.0); HEMOGLOBIN 9.2 g/dl (12.0-16.0); LYMPHOCYTES # (AUTO) 1.4 X10'3 (1.1-4.8); MEAN CORPUSCULAR HEMOGLOBIN 31.8 PG (27.0-31.0); MEAN CORPUSCULAR HGB CONC 32.6 g/dL (33.0-36.5); MEAN CORPUSCULAR VOLUME 97.5 FL (78-98); MEAN PLATELET VOLUME 8.2 FL (7.4-10.4); MONOCYTES # (AUTO) 0.8 X10'3 (0-0.9); MONOCYTES % (AUTO) 11.8 % (2-12); NEUTROPHILS # (AUTO) 4.4 X10'3 (1.8-7.7); NEUTROPHILS % (AUTO) 62.1 % (42-75); PLATELET COUNT 232 X10'3 (140-440); RED BLOOD COUNT 2.91 X10'6 (4.20-5.60); WHITE BLOOD COUNT 7.2 X10'3 (4.5-11.0)
[2023-03-18 07:36] LABS: ALANINE AMINOTRANSFERASE 56 U/L (12-78); ALBUMIN 2.5 G/DL (3.4-5.0); ALBUMIN/GLOBULIN RATIO 0.8 (1.1-1.5); ALKALINE PHOSPHATASE 107 IU/L (46-116); ANION GAP 4 (8-16); ASPARTATE AMINO TRANSFERASE 41 U/L (10-37); BILIRUBIN,TOTAL 0.5 MG/DL (0.1-1.0); BLOOD UREA NITROGEN 22 MG/DL (7-18); BUN/CREATININE RATIO 14.6 (10.0-20.0); CALCIUM 8.6 MG/DL (8.5-10.1); CHLORIDE 105 MMOL/L (99-107); CREATININE 1.51 MG/DL (0.40-0.90); GLUCOSE 82 MG/DL (70-104); POTASSIUM 3.9 MMOL/L (3.5-5.1); SODIUM 139 MMOL/L (135-145); TOTAL CARBON DIOXIDE 29.6 MMOL/L (24-32); TOTAL PROTEIN 5.5 G/DL (6.4-8.2); eCRCL 24 ML/MIN; eGFR 33 ML/MIN
[2023-03-18 09:36] LABS: PLATELET ESTIMATE NORMAL
[2023-03-18 09:37] LABS: ANISOCYTOSIS 2+; ELLIPTOCYTES FEW; HYPOCHROMASIA 1+; POLYCHROMASIA FEW; SCHISTOCYTES FEW; TEAR DROP CELLS 1+
[2023-03-18] MEDS: amiodarone 200mg tablet PO SCH (10:14)
[2023-03-18] MEDS: clopidogrel 75mg tablet PO SCH (10:15)
[2023-03-18] MEDS: pantoprazole 40mg Tablet.DR PO SCH ×2 (10:16→22:24)
[2023-03-18] MEDS: linezolid 600mg tablet PO SCH ×2 (10:16→22:23)
[2023-03-18] MEDS: ferrous sulfate 325mg tablet PO SCH ×2 (10:17→22:26)
[2023-03-18] MEDS: pregabalin 75mg capsule PO SCH (10:17)
[2023-03-18] MEDS: calcium carbonate 500mg tablet PO SCH ×2 (10:18→22:25)
[2023-03-18] MEDS: levoTHYROXINE 75mcg tablet PO SCH (10:19)
[2023-03-18] MEDS: vitamin B comp w/Vit. C tab 1 TAB TABLET PO SCH (10:22)
[2023-03-18] MEDS: atenolol 25mg tablet PO SCH (10:28)
[2023-03-18] MEDS: sacubitril/valsartan 24mg-26mg tablet PO SCH ×2 (10:29→22:26)
[2023-03-18] MEDS: furosemide 20 MG/2 ML vial IV SCH ×2 (10:31→22:30)
[2023-03-18] MEDS: heparin, porcine 5000 units/ml vial SQ SCH ×2 (10:33→22:27)
--- NOTE | 2023-03-18 13:45 | NUR ---
Jacob consult: Pt seen by AUGUSTIN at bedside for written/verbal low-tyramine diet ed w/ RD contact information provided. RD encouraged pt to contact dietitian's office if further nutrition questions/concerns. Pt request soup and lemon-[place] soda BIDLD- dietary notified. Addendum: 03/18/23 at [address] Amended: Links added.
--- NOTE | 2023-03-18 18:48 | NUR ---
Problems reprioritized. Patient report given, questions answered & plan of care reviewed with Mickie GREGORY.
[2023-03-18] MEDS: atorvastatin 20mg tablet PO SCH (22:24)
[2023-03-19] VITALS (16 sets, daily range): BP systolic 96–120; BP diastolic 35–73; PULSE 50–66; RESP 15–22; TEMP 97.9–99.1; O2SAT 90–98
[2023-03-19] MEDS: albuterol 2.5 MG/3 ML nebule NEB SCH ×4 (03:13→19:41)
--- NOTE | 2023-03-19 06:45 | NUR ---
Problems reprioritized. Patient report given, questions answered & plan of care reviewed with Shira.
[2023-03-19] MEDS: levoTHYROXINE 75mcg tablet PO SCH (07:00)
[2023-03-19] MEDS: furosemide 20 MG/2 ML vial IV SCH (07:48)
[2023-03-19] MEDS: pregabalin 75mg capsule PO SCH (09:18)
[2023-03-19] MEDS: amiodarone 200mg tablet PO SCH (09:18)
[2023-03-19] MEDS: vitamin B comp w/Vit. C tab 1 TAB TABLET PO SCH (09:18)
[2023-03-19] MEDS: pantoprazole 40mg Tablet.DR PO SCH ×2 (09:18→20:43)
[2023-03-19] MEDS: calcium carbonate 500mg tablet PO SCH ×2 (09:18→20:43)
[2023-03-19] MEDS: linezolid 600mg tablet PO SCH ×2 (09:19→20:41)
[2023-03-19] MEDS: clopidogrel 75mg tablet PO SCH (09:19)
[2023-03-19] MEDS: ferrous sulfate 325mg tablet PO SCH ×2 (09:19→20:43)
[2023-03-19] MEDS: heparin, porcine 5000 units/ml vial SQ SCH ×2 (09:22→20:44)
[2023-03-19] MEDS: sacubitril/valsartan 24mg-26mg tablet PO SCH ×2 (09:29→21:04)
[2023-03-19] MEDS: atenolol 25mg tablet PO SCH (09:31)
[2023-03-19 09:44] LABS: BASOPHILS % (AUTO) 0.3 % (0-1); EOSINOPHILS # (AUTO) 0.4 X10'3 (0-0.9); EOSINOPHILS % (AUTO) 6.2 % (0-6); HEMATOCRIT 30.4 % (35.0-45.0); HEMOGLOBIN 9.7 g/dl (12.0-16.0); LYMPHOCYTES # (AUTO) 1.3 X10'3 (1.1-4.8); LYMPHOCYTES % (AUTO) 18.4 % (21-51); MEAN CORPUSCULAR HEMOGLOBIN 31.4 PG (27.0-31.0); MEAN CORPUSCULAR HGB CONC 31.9 g/dL (33.0-36.5); MEAN CORPUSCULAR VOLUME 98.6 FL (78-98); MEAN PLATELET VOLUME 8.3 FL (7.4-10.4); MONOCYTES # (AUTO) 0.8 X10'3 (0-0.9); NEUTROPHILS # (AUTO) 4.4 X10'3 (1.8-7.7); NEUTROPHILS % (AUTO) 63.1 % (42-75); PLATELET COUNT 216 X10'3 (140-440); RED BLOOD COUNT 3.08 X10'6 (4.20-5.60); RED CELL DISTRIBUTION WIDTH 20.7 % (11.5-14.5); WHITE BLOOD COUNT 6.9 X10'3 (4.5-11.0)
[2023-03-19 09:57] LABS: ALANINE AMINOTRANSFERASE 55 U/L (12-78); ALBUMIN 2.7 G/DL (3.4-5.0); ALBUMIN/GLOBULIN RATIO 0.8 (1.1-1.5); ALKALINE PHOSPHATASE 111 IU/L (46-116); ANION GAP 3 (8-16); ASPARTATE AMINO TRANSFERASE 40 U/L (10-37); BILIRUBIN,TOTAL 0.5 MG/DL (0.1-1.0); BLOOD UREA NITROGEN 20 MG/DL (7-18); BUN/CREATININE RATIO 13.7 (10.0-20.0); CALCIUM 8.9 MG/DL (8.5-10.1); CHLORIDE 103 MMOL/L (99-107); CREATININE 1.46 MG/DL (0.40-0.90); GLUCOSE 88 MG/DL (70-104); POTASSIUM 3.6 MMOL/L (3.5-5.1); SODIUM 136 MMOL/L (135-145); TOTAL CARBON DIOXIDE 30.2 MMOL/L (24-32); TOTAL PROTEIN 5.9 G/DL (6.4-8.2); eCRCL 24 ML/MIN; eGFR 34 ML/MIN
[2023-03-19] MEDS ORDERED: LINE600T14 PO (11:06)
[2023-03-19] MEDS ORDERED: ATEN25TA7 PO (11:06)
[2023-03-19] MEDS ORDERED: SACC250C PO (11:09)
--- NOTE | 2023-03-19 18:41 | NUR ---
Problems reprioritized. Patient report given, questions answered & plan of care reviewed with Emelia.
[2023-03-19] MEDS: atorvastatin 20mg tablet PO SCH (20:42)
[2023-03-19] MEDS: furosemide 20MG tablet PO SCH (20:42)
--- NOTE | 2023-03-19 21:58 | NUR ---
pt was not discharged due to pt unable to pass urine today after macdonald catheter was removed at about 1145 in the morning. This nurse scanned pt around 1835 and noted 451mls of urine in the bladder. Dr Krishnamurthy was notified and he gave an order for a straight cath.As this nurse was about to get a straight cath from the [facility], Dr Gracia called to inquire about the pt.when he was updated , He ordered a macdonald catheter to be inserted and the pt to be discharged tomorrow.Hence today's discharge order was cancelled. pt is resting in bed with new macdonald cath on
--- NOTE | 2023-03-19 22:15 | NUR ---
okayed to change pt's iv Lasix to PO due to lack of iv access
[2023-03-20] VITALS (15 sets, daily range): BP systolic 95–141; BP diastolic 32–59; PULSE 50–58; RESP 14–25; TEMP 97.4–98.3; O2SAT 90–99
[2023-03-20] MEDS: albuterol 2.5 MG/3 ML nebule NEB SCH ×4 (02:34→21:05)
--- NOTE | 2023-03-20 06:14 | NUR ---
Problems reprioritized. Patient report given, questions answered & plan of care reviewed with Shira.
[2023-03-20] MEDS: atenolol 25mg tablet PO SCH (07:40)
[2023-03-20] MEDS: pantoprazole 40mg Tablet.DR PO SCH ×2 (07:41→20:21)
[2023-03-20] MEDS: vitamin B comp w/Vit. C tab 1 TAB TABLET PO SCH (07:41)
[2023-03-20] MEDS: sacubitril/valsartan 24mg-26mg tablet PO SCH ×2 (07:41→20:21)
[2023-03-20] MEDS: heparin, porcine 5000 units/ml vial SQ SCH ×2 (07:41→20:26)
[2023-03-20] MEDS: furosemide 20MG tablet PO SCH ×2 (07:41→20:21)
[2023-03-20] MEDS: levoTHYROXINE 75mcg tablet PO SCH (07:42)
[2023-03-20] MEDS: calcium carbonate 500mg tablet PO SCH ×2 (07:42→20:21)
[2023-03-20] MEDS: pregabalin 75mg capsule PO SCH (07:42)
[2023-03-20] MEDS: linezolid 600mg tablet PO SCH ×2 (07:42→20:20)
[2023-03-20] MEDS: clopidogrel 75mg tablet PO SCH (07:42)
[2023-03-20] MEDS: amiodarone 200mg tablet PO SCH (07:42)
[2023-03-20] MEDS: ferrous sulfate 325mg tablet PO SCH ×2 (07:43→20:21)
[2023-03-20 09:49] LABS: BASOPHILS # (AUTO) 0.1 X10'3 (0-0.2); EOSINOPHILS # (AUTO) 0.3 X10'3 (0-0.9); EOSINOPHILS % (AUTO) 4.4 % (0-6); HEMATOCRIT 30.1 % (35.0-45.0); HEMOGLOBIN 9.6 g/dl (12.0-16.0); LYMPHOCYTES # (AUTO) 1.1 X10'3 (1.1-4.8); LYMPHOCYTES % (AUTO) 16.9 % (21-51); MEAN CORPUSCULAR HEMOGLOBIN 31.3 PG (27.0-31.0); MEAN CORPUSCULAR HGB CONC 31.8 g/dL (33.0-36.5); MEAN CORPUSCULAR VOLUME 98.4 FL (78-98); MEAN PLATELET VOLUME 8.2 FL (7.4-10.4); MONOCYTES # (AUTO) 0.6 X10'3 (0-0.9); MONOCYTES % (AUTO) 9.6 % (2-12); NEUTROPHILS # (AUTO) 4.3 X10'3 (1.8-7.7); NEUTROPHILS % (AUTO) 68.1 % (42-75); PLATELET COUNT 220 X10'3 (140-440); RED BLOOD COUNT 3.06 X10'6 (4.20-5.60); RED CELL DISTRIBUTION WIDTH 20.8 % (11.5-14.5); WHITE BLOOD COUNT 6.3 X10'3 (4.5-11.0)
[2023-03-20 10:08] LABS: ALANINE AMINOTRANSFERASE 53 U/L (12-78); ALBUMIN 2.7 G/DL (3.4-5.0); ALBUMIN/GLOBULIN RATIO 0.9 (1.1-1.5); ALKALINE PHOSPHATASE 107 IU/L (46-116); ANION GAP 4 (8-16); ASPARTATE AMINO TRANSFERASE 35 U/L (10-37); BILIRUBIN,TOTAL 0.5 MG/DL (0.1-1.0); BLOOD UREA NITROGEN 19 MG/DL (7-18); BUN/CREATININE RATIO 11.3 (10.0-20.0); CALCIUM 8.8 MG/DL (8.5-10.1); CHLORIDE 102 MMOL/L (99-107); CREATININE 1.68 MG/DL (0.40-0.90); GLUCOSE 136 MG/DL (70-104); POTASSIUM 3.4 MMOL/L (3.5-5.1); SODIUM 137 MMOL/L (135-145); TOTAL CARBON DIOXIDE 31.4 MMOL/L (24-32); TOTAL PROTEIN 5.8 G/DL (6.4-8.2); eCRCL 21 ML/MIN; eGFR 29 ML/MIN
--- NOTE | 2023-03-20 16:23 | NUR ---
PAGER ID: [phone] MESSAGE: [phone] had PT and O2 dropped to low 80's. Can she be DCed with O2? Shira U [phone]
--- NOTE | 2023-03-20 17:40 | NUR ---
AGREE WITH CONTINUOUS IMPROVEMENT FACILITATOR AM ASSESSMENT
--- NOTE | 2023-03-20 19:08 | NUR ---
Problems reprioritized. Patient report given, questions answered & plan of care reviewed with Emelia.
[2023-03-20] MEDS: atorvastatin 20mg tablet PO SCH (20:21)
[2023-03-21] VITALS (9 sets, daily range): BP systolic 101–129; BP diastolic 44–62; PULSE 50–84; RESP 14–19; TEMP 97.5–98.6; O2SAT 92–100
--- NOTE | 2023-03-21 00:56 | NUR ---
pt was bladder scanned after this nurse noticed that pt has not passed urine since the beginning of the shift. 428ml of urine was recorded.pt was straight cath per protocol.
[2023-03-21] MEDS: albuterol 2.5 MG/3 ML nebule NEB SCH ×2 (02:49→07:33)
--- NOTE | 2023-03-21 06:21 | NUR ---
Problems reprioritized. Patient report given, questions answered & plan of care reviewed with Kirsten
--- NOTE | 2023-03-21 06:42 | NUR ---
I have received report from COLT Kapoor and had the opportunity to ask questions and assume patient care. No distress at this time.
[2023-03-21] MEDS: vitamin B comp w/Vit. C tab 1 TAB TABLET PO SCH (07:48)
[2023-03-21] MEDS: heparin, porcine 5000 units/ml vial SQ SCH (07:55)
[2023-03-21] MEDS: pantoprazole 40mg Tablet.DR PO SCH (07:55)
[2023-03-21] MEDS: pregabalin 75mg capsule PO SCH (07:57)
[2023-03-21] MEDS: atenolol 25mg tablet PO SCH (07:57)
[2023-03-21] MEDS: calcium carbonate 500mg tablet PO SCH (07:59)
[2023-03-21] MEDS: furosemide 20MG tablet PO SCH (07:59)
[2023-03-21] MEDS: clopidogrel 75mg tablet PO SCH (08:00)
[2023-03-21] MEDS: levoTHYROXINE 75mcg tablet PO SCH (08:00)
[2023-03-21] MEDS: linezolid 600mg tablet PO SCH (08:00)
[2023-03-21] MEDS: sacubitril/valsartan 24mg-26mg tablet PO SCH (08:00)
[2023-03-21] MEDS: ferrous sulfate 325mg tablet PO SCH (08:00)
[2023-03-21] MEDS: amiodarone 200mg tablet PO SCH (08:00)
--- NOTE | 2023-03-21 10:04 | NUR ---
O2 Sat at rest on room air:_88__% If below 89%: Recovery O2 Sat at rest on _2__LPM:_97__%:___% via__2___Nasal Cannula (mask/nasal cannula, etc..) No further documentation is necessary. If O2 Sat did not drop below 89% on room air,ambulate patient on room air. O2 Sat while ambulating on room air:_89__% Recovery O2 Sat while ambulating on _2__LPM:_96__% No further documentation is necessary. If patient does not drop below 89% while ambulating, he/she does not qualify for home O2.
[2023-03-21 10:41] LABS: BASOPHILS # (AUTO) 0.1 X10'3 (0-0.2); BASOPHILS % (AUTO) 1.4 % (0-1); EOSINOPHILS # (AUTO) 0.3 X10'3 (0-0.9); EOSINOPHILS % (AUTO) 5.7 % (0-6); HEMATOCRIT 30.6 % (35.0-45.0); HEMOGLOBIN 9.8 g/dl (12.0-16.0); LYMPHOCYTES # (AUTO) 1.4 X10'3 (1.1-4.8); LYMPHOCYTES % (AUTO) 24.5 % (21-51); MEAN CORPUSCULAR HEMOGLOBIN 31.4 PG (27.0-31.0); MEAN CORPUSCULAR VOLUME 98.2 FL (78-98); MEAN PLATELET VOLUME 8.5 FL (7.4-10.4); MONOCYTES # (AUTO) 0.6 X10'3 (0-0.9); MONOCYTES % (AUTO) 10.6 % (2-12); NEUTROPHILS # (AUTO) 3.3 X10'3 (1.8-7.7); NEUTROPHILS % (AUTO) 57.8 % (42-75); PLATELET COUNT 228 X10'3 (140-440); RED BLOOD COUNT 3.12 X10'6 (4.20-5.60); RED CELL DISTRIBUTION WIDTH 20.6 % (11.5-14.5); WHITE BLOOD COUNT 5.7 X10'3 (4.5-11.0)
[2023-03-21 10:43] LABS: ALANINE AMINOTRANSFERASE 49 U/L (12-78); ALBUMIN 2.9 G/DL (3.4-5.0); ALBUMIN/GLOBULIN RATIO 0.9 (1.1-1.5); ALKALINE PHOSPHATASE 108 IU/L (46-116); ANION GAP 4 (8-16); ASPARTATE AMINO TRANSFERASE 35 U/L (10-37); BILIRUBIN,TOTAL 0.5 MG/DL (0.1-1.0); BLOOD UREA NITROGEN 18 MG/DL (7-18); BUN/CREATININE RATIO 10.9 (10.0-20.0); CHLORIDE 101 MMOL/L (99-107); CREATININE 1.65 MG/DL (0.40-0.90); GLUCOSE 123 MG/DL (70-104); POTASSIUM 3.7 MMOL/L (3.5-5.1); SODIUM 135 MMOL/L (135-145); TOTAL CARBON DIOXIDE 29.9 MMOL/L (24-32); TOTAL PROTEIN 6.2 G/DL (6.4-8.2); eCRCL 22 ML/MIN; eGFR 30 ML/MIN
--- NOTE | 2023-03-21 12:57 | NUR ---
[place] [facility] having to straight cat[place].
--- NOTE | 2023-03-21 15:17 | NUR ---
Patient discharged alert and oriented. Stable for baseline, patient has belongings and all paperwork that was provided. Documents signed and obtained. IV has already been discharged prior to shift change. Medications went over w/ patient and answered any questions may pertained. Auxiliary wheeled patient down to vehicle, which her picked her up. Patient had a full tank of oxygen for home use and educated on it.
== END 2023-03-21 15:14 | disposition home health service (06) | DRG 189 ==
LOC: ER 12:34 → ED HOLD 17:26 → PCU 3S 03-14 09:15
PROVIDERS: ADMIT Internal Medicine; ATTEND Internal Medicine
PROC: 05HY33Z Insertion of Infusion Device into Upper Vein, Percutaneous Approach (ICD-10-PCS; principal; 2023-03-13)
DX: J96.00 Acute respiratory failure, unspecified whether with hypoxia or hypercapnia (principal); N17.0 Acute kidney failure with tubular necrosis; I50.43 Acute on chronic combined systolic (congestive) and diastolic (congestive) heart failure; I13.0 Hypertensive heart and chronic kidney disease with heart failure and stage 1 through stage 4 chronic kidney disease, or unspecified chronic kidney disease; N39.0 Urinary tract infection, site not specified; Z16.24 Resistance to multiple antibiotics; B95.2 Enterococcus as the cause of diseases classified elsewhere; D50.9 Iron deficiency anemia, unspecified; E03.9 Hypothyroidism, unspecified; E78.00 Pure hypercholesterolemia, unspecified; I25.10 Atherosclerotic heart disease of native coronary artery without angina pectoris; I27.20 Pulmonary hypertension, unspecified; I48.0 Paroxysmal atrial fibrillation; I73.9 Peripheral vascular disease, unspecified; N18.9 Chronic kidney disease, unspecified; Z79.02 Long term (current) use of antithrombotics/antiplatelets; Z82.3 Family history of stroke; Z87.01 Personal history of pneumonia (recurrent); Z90.49 Acquired absence of other specified parts of digestive tract; Z95.0 Presence of cardiac pacemaker; R74.01 Elevation of levels of liver transaminase levels
CPT/HCPCS: 36415; 71045; 74176; 76536; 80053; 80305; 80320; 81001; 83540; 83550; 83605; 83735; 83880; 84439; 84443; 84480; 85007; 85008; 85025; 85610; 85730; 87040; 87077; 87088; 87186; 93005; 93308; 94640; 94760; 97110; 97116; 97161; 97530; 99285; A4314; A4615; A6212; A6213; A6250; A6449; C1758; G0378; J1644; J1756; J1940; J7030; J7050

== ENCOUNTER 2023-07-08 13:59 | Inpatient (IN) | payer MEDICARE ==
[~2023-07-08] VITALS: Ht 162.6 cm; Wt 72.9 kg
[~2023-07-08 13:59] MED LIST changes: +ALBU2.5V12 NEB; -AMI200T PO; +AMIO200T72 PO; +ATEN25TA7 PO; +ATOR40TA71 PO; -ATOR40TA72 PO; -BISO5TAB29 PO; +CALC-437 PO; +FERR-39 PO; -FERR325T7 PO; +FURO-150 PO; -FURO20TA4 PO; +HYDR-3973 PO; +LEVO25TA7 PO; +LINE600T14 PO; +LYR75C PO; -OSC500T PO; +PANT-47 PO; -POTA-366 PO; -RIVA15TA PO; +SACC250C PO; -SPIR25TA5 PO
[2023-07-08 15:59] LABS: BASOPHILS # (AUTO) 0.1 X10'3 (0-0.2); EOSINOPHILS # (AUTO) 0.1 X10'3 (0-0.9); EOSINOPHILS % (AUTO) 1.3 % (0-6); HEMATOCRIT 35.9 % (35.0-45.0); HEMOGLOBIN 11.8 g/dl (12.0-16.0); LYMPHOCYTES # (AUTO) 0.6 X10'3 (1.1-4.8); LYMPHOCYTES % (AUTO) 8.8 % (21-51); MEAN CORPUSCULAR HEMOGLOBIN 34.6 PG (27.0-31.0); MEAN CORPUSCULAR HGB CONC 32.8 g/dL (33.0-36.5); MEAN CORPUSCULAR VOLUME 105.4 FL (78-98); MEAN PLATELET VOLUME 9.4 FL (7.4-10.4); MONOCYTES # (AUTO) 0.7 X10'3 (0-0.9); MONOCYTES % (AUTO) 10.9 % (2-12); NEUTROPHILS # (AUTO) 5.3 X10'3 (1.8-7.7); PLATELET COUNT 159 X10'3 (140-440); RED CELL DISTRIBUTION WIDTH 16.9 % (11.5-14.5); WHITE BLOOD COUNT 6.8 X10'3 (4.5-11.0)
[2023-07-08 16:04] LABS: ALANINE AMINOTRANSFERASE 34 U/L (12-78); ALBUMIN/GLOBULIN RATIO 1.3 (1.1-1.5); ALKALINE PHOSPHATASE 80 IU/L (46-116); ANION GAP 14 (8-16); ASPARTATE AMINO TRANSFERASE 34 U/L (10-37); BILIRUBIN,TOTAL 0.7 MG/DL (0.1-1.0); BLOOD UREA NITROGEN 113 MG/DL (7-18); CHLORIDE 99 MMOL/L (99-107); GLUCOSE 89 MG/DL (70-104); POTASSIUM 5.4 MMOL/L (3.5-5.1); SODIUM 136 MMOL/L (135-145); TOTAL CARBON DIOXIDE 23.2 MMOL/L (24-32); TOTAL PROTEIN 7.2 G/DL (6.4-8.2); eCRCL 9 ML/MIN; eGFR 11 ML/MIN
[2023-07-08 16:12] LABS: PRO BRAIN NATRIURETIC PEPTIDE 19159 PG/ML (0-450)
[2023-07-08] MEDS ORDERED: CefTRIAXone 2gm/D5W 50ml BAG 50 ML IV ONE (20:45)
[2023-07-08] MEDS ORDERED: acetaminophen 325mg tablet PO STA (20:45)
[2023-07-08 21:09] LABS: MAGNESIUM 3.1 MG/DL (1.5-2.4)
[2023-07-09] MEDS ORDERED: PERFLUTREN PROTEIN-A MICROSPHR (Optison) 0.22 MG/ML 3ML VIAL IV PRN (00:15)
[2023-07-09] MEDS ORDERED: albumin (Human) 5% 250ml 250 ML IV ONE (00:15)
[2023-07-09] MEDS: normal saline 1000ml 1,000 ML IV SCH ×2 (00:15→13:48)
[2023-07-09] MEDS ORDERED: acetaminophen 325mg tablet PO STA (01:13)
[2023-07-09] MEDS ORDERED: magnesium 4gm in 100ml NS 100 ML IV PRN (04:40)
[2023-07-09] MEDS ORDERED: potassium Cl 40MEQ/1/2NS 520ml 520 ML IV PRN (04:40)
[2023-07-09] MEDS ORDERED: potassium Cl 20 mEq SR tablet PO PRN ×2 (04:40)
[2023-07-09] MEDS ORDERED: acetaminophen 325mg tablet PO PRN (04:40)
[2023-07-09] MEDS ORDERED: magnesium 2GM in 50ml NS 50 ML IV PRN (04:40)
[2023-07-09] MEDS ORDERED: magnesium Cl slow-release 64mg tablet PO PRN (04:40)
[2023-07-09] MEDS ORDERED: ondansetron/PF 4mg/2ml inj IV PRN (04:40)
[2023-07-09] MEDS: morphine 2 MG/ML inj. syringe IV PRN (05:09)
[2023-07-09] MEDS ORDERED: vancomycin/NS 1 GM ADD-VANTAGE 250 ML IV ONE (06:50)
[2023-07-09] MEDS ORDERED: vancomycin/NS 1 GM ADD-VANTAGE 250 ML IV SCH (08:00)
[2023-07-09] MEDS: K and/or MAG REPLACEMENT MC SCH ×2 (08:20→20:00)
[2023-07-09 08:24] LABS: MAGNESIUM 3.2 MG/DL (1.5-2.4); POTASSIUM 4.8 MMOL/L (3.5-5.1); VANCOMYCIN,RANDOM 20.4 ug/mL (20.0-30.0)
[2023-07-09 08:45] VITALS: BP 93/38; PULSE 50; RESP 12; TEMP 98.1; O2SAT 92
[2023-07-09 11:00] VITALS: BP 91/34; PULSE 52; TEMP 98.4; O2SAT 94
[2023-07-09 15:00] VITALS: BP 91/41; PULSE 50; RESP 19; TEMP 98.1; O2SAT 98
[2023-07-09] MEDS ORDERED: SPIR25TA5 PO (16:40)
[2023-07-09] MEDS ORDERED: METO5TAB7 PO (16:40)
[2023-07-09] MEDS ORDERED: BISO10TA16 PO (16:40)
[2023-07-09] MEDS ORDERED: POTA-188 PO (16:40)
[2023-07-09] MEDS ORDERED: POTA-366 PO (16:49)
[2023-07-09] MEDS ORDERED: CEPH-585 PO (16:49)
[2023-07-09] MEDS ORDERED: NITR0.4T51 SL (16:49)
[2023-07-09 18:00] VITALS: BP 102/43; PULSE 50; RESP 20; TEMP 97.7; O2SAT 91
[2023-07-09 20:00] VITALS: RESP 20; O2SAT 91
[2023-07-09 22:00] VITALS: BP 95/40; PULSE 54; RESP 16; TEMP 98.6; O2SAT 92
[2023-07-10] VITALS (7 sets, daily range): BP systolic 92–103; BP diastolic 44–62; PULSE 50–59; RESP 12–17; TEMP 97.3–98; O2SAT 91–97
[2023-07-10] MEDS: morphine 2 MG/ML inj. syringe IV PRN (00:08)
[2023-07-10] MEDS ORDERED: HYDROcodone/acetaminophen 10/325mg tab PO ONE (00:25)
[2023-07-10 07:43] LABS: BASOPHILS # (AUTO) 0.1 X10'3 (0-0.2); BASOPHILS % (AUTO) 1.1 % (0-1); EOSINOPHILS # (AUTO) 0.2 X10'3 (0-0.9); HEMATOCRIT 31.7 % (35.0-45.0); HEMOGLOBIN 10.4 g/dl (12.0-16.0); LYMPHOCYTES # (AUTO) 0.7 X10'3 (1.1-4.8); LYMPHOCYTES % (AUTO) 13.5 % (21-51); MEAN CORPUSCULAR HEMOGLOBIN 34.6 PG (27.0-31.0); MEAN CORPUSCULAR HGB CONC 32.8 g/dL (33.0-36.5); MEAN CORPUSCULAR VOLUME 105.5 FL (78-98); MEAN PLATELET VOLUME 9.6 FL (7.4-10.4); MONOCYTES # (AUTO) 0.8 X10'3 (0-0.9); MONOCYTES % (AUTO) 15.7 % (2-12); NEUTROPHILS # (AUTO) 3.5 X10'3 (1.8-7.7); NEUTROPHILS % (AUTO) 66.7 % (42-75); PLATELET COUNT 132 X10'3 (140-440); RED BLOOD COUNT 3.01 X10'6 (4.20-5.60); RED CELL DISTRIBUTION WIDTH 16.7 % (11.5-14.5); WHITE BLOOD COUNT 5.2 X10'3 (4.5-11.0)
[2023-07-10] MEDS: K and/or MAG REPLACEMENT MC SCH ×2 (08:00→20:00)
[2023-07-10] MEDS ORDERED: vancomycin/NS 1 GM ADD-VANTAGE 250 ML IV PRN (08:00)
[2023-07-10 08:29] LABS: ALANINE AMINOTRANSFERASE 27 U/L (12-78); ALBUMIN 3.2 G/DL (3.4-5.0); ALKALINE PHOSPHATASE 66 IU/L (46-116); ANION GAP 11 (8-16); ASPARTATE AMINO TRANSFERASE 29 U/L (10-37); BILIRUBIN,TOTAL 0.5 MG/DL (0.1-1.0); BLOOD UREA NITROGEN 109 MG/DL (7-18); BUN/CREATININE RATIO 31.1 (10.0-20.0); CALCIUM 8.4 MG/DL (8.5-10.1); CHLORIDE 102 MMOL/L (99-107); GLUCOSE 101 MG/DL (70-104); MAGNESIUM 3.1 MG/DL (1.5-2.4); POTASSIUM 5.1 MMOL/L (3.5-5.1); SODIUM 136 MMOL/L (135-145); TOTAL CARBON DIOXIDE 22.8 MMOL/L (24-32); TOTAL PROTEIN 6.3 G/DL (6.4-8.2); eCRCL 10 ML/MIN; eGFR 12 ML/MIN
[2023-07-10 08:31] LABS: ALBUMIN 3.2 G/DL (3.4-5.0); ANION GAP 10 (8-16); BLOOD UREA NITROGEN 110 MG/DL (7-18); BUN/CREATININE RATIO 31.6 (10.0-20.0); CALCIUM 8.4 MG/DL (8.5-10.1); CHLORIDE 102 MMOL/L (99-107); CREATININE 3.48 MG/DL (0.40-0.90); GLUCOSE 104 MG/DL (70-104); MAGNESIUM 3.1 MG/DL (1.5-2.4); POTASSIUM 5.1 MMOL/L (3.5-5.1); SODIUM 136 MMOL/L (135-145); TOTAL CARBON DIOXIDE 23.6 MMOL/L (24-32); VANCOMYCIN,RANDOM 7.7 ug/mL (20.0-30.0); eCRCL 10 ML/MIN; eGFR 12 ML/MIN
[2023-07-10] MEDS ORDERED: vancomycin/NS 1 GM ADD-VANTAGE 250 ML IV ONE (11:25)
[2023-07-10 13:53] LABS: NEUTROPHILS % (MANUAL) 69 % (42-75); TOTAL CELLS COUNTED 100
[2023-07-10 13:54] LABS: ANISOCYTOSIS 1+; BURR CELLS FEW; ELLIPTOCYTES FEW; EOSINOPHILS % (MANUAL) 4 % (0-6); LYMPHOCYTES % (MANUAL) 13 % (21-51); MONOCYTES % (MANUAL) 14 % (2-12); PLATELET ESTIMATE DECREASED; SMUDGE CELLS FEW; TEAR DROP CELLS FEW
[2023-07-10] MEDS ORDERED: albuterol 2.5 MG/3 ML nebule NEB PRN (18:05)
[2023-07-10] MEDS: atorvastatin 20mg tablet PO SCH (20:10)
[2023-07-10] MEDS: ferrous sulfate 325mg tablet PO SCH (20:10)
[2023-07-10] MEDS: HYDROcodone/acetaminophen 5mg/325mg tablet PO PRN (23:07)
[2023-07-10] MEDS: normal saline 1000ml 1,000 ML IV SCH (23:28)
[2023-07-11 07:00] VITALS: BP 106/46; PULSE 50; RESP 15; TEMP 98; O2SAT 90
[2023-07-11 07:58] LABS: BASOPHILS # (AUTO) 0.1 X10'3 (0-0.2); BASOPHILS % (AUTO) 1.1 % (0-1); EOSINOPHILS # (AUTO) 0.2 X10'3 (0-0.9); EOSINOPHILS % (AUTO) 3.4 % (0-6); HEMATOCRIT 32.5 % (35.0-45.0); HEMOGLOBIN 10.5 g/dl (12.0-16.0); LYMPHOCYTES # (AUTO) 0.5 X10'3 (1.1-4.8); LYMPHOCYTES % (AUTO) 9.9 % (21-51); MEAN CORPUSCULAR HEMOGLOBIN 34.5 PG (27.0-31.0); MEAN CORPUSCULAR HGB CONC 32.4 g/dL (33.0-36.5); MEAN CORPUSCULAR VOLUME 106.4 FL (78-98); MEAN PLATELET VOLUME 9.6 FL (7.4-10.4); MONOCYTES # (AUTO) 0.8 X10'3 (0-0.9); MONOCYTES % (AUTO) 15.3 % (2-12); NEUTROPHILS # (AUTO) 3.8 X10'3 (1.8-7.7); NEUTROPHILS % (AUTO) 70.3 % (42-75); PLATELET COUNT 129 X10'3 (140-440); RED BLOOD COUNT 3.05 X10'6 (4.20-5.60); RED CELL DISTRIBUTION WIDTH 16.7 % (11.5-14.5); WHITE BLOOD COUNT 5.4 X10'3 (4.5-11.0)
[2023-07-11] MEDS: K and/or MAG REPLACEMENT MC SCH ×2 (08:00→20:00)
[2023-07-11 08:18] LABS: ANION GAP 9 (8-16); BLOOD UREA NITROGEN 102 MG/DL (7-18); BUN/CREATININE RATIO 32.4 (10.0-20.0); CALCIUM 8.6 MG/DL (8.5-10.1); CHLORIDE 103 MMOL/L (99-107); CREATININE 3.15 MG/DL (0.40-0.90); GLUCOSE 105 MG/DL (70-104); MAGNESIUM 3.2 MG/DL (1.5-2.4); SODIUM 137 MMOL/L (135-145); VANCOMYCIN,RANDOM 16.1 ug/mL (20.0-30.0); eCRCL 11 ML/MIN; eGFR 14 ML/MIN
[2023-07-11] MEDS: ferrous sulfate 325mg tablet PO SCH ×2 (09:54→20:14)
[2023-07-11] MEDS: levoTHYROXINE 25mcg tablet PO SCH (09:54)
[2023-07-11] MEDS: amiodarone 200mg tablet PO SCH (09:54)
[2023-07-11] MEDS: HYDROcodone/acetaminophen 5mg/325mg tablet PO PRN ×2 (10:29→20:16)
[2023-07-11 12:57] VITALS: BP 107/74; PULSE 50; RESP 16; TEMP 97.9; O2SAT 92
[2023-07-11 16:54] VITALS: BP 117/46; PULSE 48; RESP 16; TEMP 97.2; O2SAT 92
[2023-07-11 18:00] VITALS: BP 101/41; PULSE 50; RESP 18; TEMP 97.3; O2SAT 92
[2023-07-11 20:00] VITALS: RESP 16; O2SAT 92
[2023-07-11] MEDS: atorvastatin 20mg tablet PO SCH (20:15)
[2023-07-11 22:00] VITALS: BP 110/70; PULSE 50; RESP 18; TEMP 97.3; O2SAT 95
[2023-07-12 02:00] VITALS: BP 105/60; PULSE 50; RESP 18; TEMP 97.1; O2SAT 92
[2023-07-12 03:57] LABS: BILIRUBIN,URINE NEGATIVE (Neg); CLARITY,URINE SLIGHTLY CLOUDY (Clear); COLOR,URINE YELLOW (Yellow); GLUCOSE, URINE NEGATIVE (Neg); KETONES,URINE NEGATIVE (Neg); LEUKOCYTE ESTERASE ,URINE NEGATIVE (Neg); NITRITES, URINE NEGATIVE (Neg); OCCULT BLOOD,URINE NEGATIVE (Neg); PH,URINE 5.5 (4.8-8.0); PROTEIN,URINE NEGATIVE (Neg); UROBILINOGEN,URINE 0.2 E.U/dL (0.2-1.0)
[2023-07-12 04:06] LABS: UA COLLECTION TYPE NON-SPECIFIED
[2023-07-12 04:07] LABS: BACTERIA,URINE NONE SEEN /HPF (Neg); RBC,URINE 0-2 /HPF (0-2); WBC,URINE 0-4 /HPF (0-4)
[2023-07-12 04:08] LABS: MUCUS STRANDS NONE SEEN /LPF (Neg); SQUAMOUS EPITHELIAL CELL,UR FEW /LPF (FEW)
[2023-07-12 04:11] LABS: SODIUM,URINE RANDOM < 15 MEQ/L; TOTAL PROTEIN,URINE RANDOM 28.2 MG/DL
[2023-07-12 04:43] LABS: UA EOSINOPHILS NO EOS /HPF
[2023-07-12 06:52] LABS: BASOPHILS # (AUTO) 0.1 X10'3 (0-0.2); BASOPHILS % (AUTO) 0.9 % (0-1); EOSINOPHILS # (AUTO) 0.2 X10'3 (0-0.9); EOSINOPHILS % (AUTO) 3.8 % (0-6); HEMATOCRIT 32.8 % (35.0-45.0); HEMOGLOBIN 10.6 g/dl (12.0-16.0); LYMPHOCYTES # (AUTO) 0.8 X10'3 (1.1-4.8); MEAN CORPUSCULAR HEMOGLOBIN 34.3 PG (27.0-31.0); MEAN CORPUSCULAR HGB CONC 32.3 g/dL (33.0-36.5); MEAN PLATELET VOLUME 9.5 FL (7.4-10.4); MONOCYTES # (AUTO) 0.9 X10'3 (0-0.9); MONOCYTES % (AUTO) 14.8 % (2-12); NEUTROPHILS % (AUTO) 67.5 % (42-75); PLATELET COUNT 123 X10'3 (140-440); RED CELL DISTRIBUTION WIDTH 16.4 % (11.5-14.5); WHITE BLOOD COUNT 5.9 X10'3 (4.5-11.0)
[2023-07-12 07:00] VITALS: BP 104/65; PULSE 50; RESP 18; TEMP 98.1; O2SAT 92
[2023-07-12 07:06] LABS: ALBUMIN 3.2 G/DL (3.4-5.0); ANION GAP 11 (8-16); BLOOD UREA NITROGEN 89 MG/DL (7-18); BUN/CREATININE RATIO 37.7 (10.0-20.0); CALCIUM 8.6 MG/DL (8.5-10.1); CHLORIDE 103 MMOL/L (99-107); CREATININE 2.36 MG/DL (0.40-0.90); GLUCOSE 92 MG/DL (70-104); MAGNESIUM 3.3 MG/DL (1.5-2.4); POTASSIUM 4.4 MMOL/L (3.5-5.1); SODIUM 135 MMOL/L (135-145); TOTAL CARBON DIOXIDE 20.8 MMOL/L (24-32); eCRCL 15 ML/MIN; eGFR 20 ML/MIN
[2023-07-12] MEDS: K and/or MAG REPLACEMENT MC SCH ×2 (08:00→19:58)
[2023-07-12] MEDS: amiodarone 200mg tablet PO SCH (08:00)
[2023-07-12] MEDS: ferrous sulfate 325mg tablet PO SCH ×2 (08:26→20:10)
[2023-07-12] MEDS: levoTHYROXINE 25mcg tablet PO SCH (08:26)
[2023-07-12] MEDS ORDERED: vancomycin/NS 1 GM ADD-VANTAGE 250 ML IV ONE (09:30)
[2023-07-12 11:00] VITALS: BP 125/47; PULSE 51; RESP 18; TEMP 98.2; O2SAT 93
[2023-07-12] MEDS ORDERED: ondansetron 4mg rapidly disintigrating tab PO PRN (12:25)
[2023-07-12] MEDS: HYDROcodone/acetaminophen 5mg/325mg tablet PO PRN ×2 (16:47→23:57)
[2023-07-12 17:58] VITALS: BP 128/68; PULSE 50; RESP 12
[2023-07-12] MEDS: atorvastatin 20mg tablet PO SCH (20:10)
[2023-07-12 22:00] VITALS: BP 113/47; PULSE 57; RESP 20; TEMP 97.6; O2SAT 92
[2023-07-13 02:00] VITALS: BP 113/96; PULSE 60; RESP 18; TEMP 97.6; O2SAT 92
[2023-07-13] MEDS ORDERED: VANCOMYCIN LEVEL IV SCH (03:00)
[2023-07-13 06:00] VITALS: BP 109/65; PULSE 50; RESP 16; TEMP 97.9; O2SAT 91
[2023-07-13 08:00] VITALS: RESP 16; O2SAT 91
[2023-07-13] MEDS: amiodarone 200mg tablet PO SCH (08:23)
[2023-07-13] MEDS: ferrous sulfate 325mg tablet PO SCH (08:23)
[2023-07-13] MEDS: levoTHYROXINE 25mcg tablet PO SCH (08:24)
[2023-07-13] MEDS: HYDROcodone/acetaminophen 5mg/325mg tablet PO PRN (09:10)
[2023-07-13] MEDS ORDERED: VANCOMYCIN LEVEL IV ONE (09:15)
== END 2023-07-13 09:21 | DRG 602 ==
LOC: ER 14:01 → ED HOLD 07-09 04:40 → PCU 3S 07-09 08:41
PROVIDERS: ADMIT Internal Medicine; ATTEND Internal Medicine
DX: L03.115 Cellulitis of right lower limb (principal); I50.33 Acute on chronic diastolic (congestive) heart failure; N17.0 Acute kidney failure with tubular necrosis; I13.0 Hypertensive heart and chronic kidney disease with heart failure and stage 1 through stage 4 chronic kidney disease, or unspecified chronic kidney disease; I48.20 Chronic atrial fibrillation, unspecified; N18.4 Chronic kidney disease, stage 4 (severe); L03.116 Cellulitis of left lower limb; G62.9 Polyneuropathy, unspecified; I95.9 Hypotension, unspecified; E87.5 Hyperkalemia; E03.9 Hypothyroidism, unspecified; I25.10 Atherosclerotic heart disease of native coronary artery without angina pectoris; E78.00 Pure hypercholesterolemia, unspecified; Z90.49 Acquired absence of other specified parts of digestive tract; Z95.0 Presence of cardiac pacemaker; Z82.3 Family history of stroke; Z95.2 Presence of prosthetic heart valve; Z79.899 Other long term (current) drug therapy; Z79.01 Long term (current) use of anticoagulants
CPT/HCPCS: 36415; 71045; 76770; 80048; 80053; 80202; 81001; 82570; 83605; 83735; 83880; 84100; 84132; 84145; 84156; 84300; 84484; 85007; 85025; 87040; 87081; 87207; 93005; 93306; 97110; 97530; 99285; A6213; A6258; A6449; A6455; G0378; J0696; J2270; J2405; J3370; J7030; P9045

== ENCOUNTER 2023-07-19 22:50 | Inpatient (IN) | payer MEDICARE ==
[~2023-07-19] VITALS: Ht 165.1 cm; Wt 72.9 kg
[~2023-07-19 22:50] MED LIST changes: -ATEN25TA7 PO; +BISO10TA16 PO; -CALC-437 PO; +CEPH-585 PO; -CHOL100046 PO; -CLOP75TA34 PO; -HYDR-3973 PO; -LINE600T14 PO; -LYR75C PO; +METO5TAB7 PO; +NITR0.4T51 SL; -PANT-47 PO; +POTA-366 PO; -SACC250C PO; +SPIR25TA5 PO; -VITA-268 PO
[2023-07-20 00:22] LABS: BASOPHILS # (AUTO) 0.1 X10'3 (0-0.2); BASOPHILS % (AUTO) 1.1 % (0-1); EOSINOPHILS # (AUTO) 0.2 X10'3 (0-0.9); EOSINOPHILS % (AUTO) 2.1 % (0-6); HEMATOCRIT 33.2 % (35.0-45.0); HEMOGLOBIN 10.9 g/dl (12.0-16.0); LYMPHOCYTES % (AUTO) 12.3 % (21-51); MEAN CORPUSCULAR HEMOGLOBIN 34.5 PG (27.0-31.0); MEAN CORPUSCULAR HGB CONC 32.7 g/dL (33.0-36.5); MEAN CORPUSCULAR VOLUME 105.6 FL (78-98); MEAN PLATELET VOLUME 8.8 FL (7.4-10.4); MONOCYTES # (AUTO) 0.9 X10'3 (0-0.9); MONOCYTES % (AUTO) 11.2 % (2-12); NEUTROPHILS % (AUTO) 73.3 % (42-75); PLATELET COUNT 182 X10'3 (140-440); RED BLOOD COUNT 3.15 X10'6 (4.20-5.60); RED CELL DISTRIBUTION WIDTH 15.5 % (11.5-14.5); WHITE BLOOD COUNT 8.2 X10'3 (4.5-11.0)
[2023-07-20 00:35] LABS: ALBUMIN 2.7 G/DL (3.4-5.0); ANION GAP 7 (8-16); BLOOD UREA NITROGEN 72 MG/DL (7-18); BUN/CREATININE RATIO 35.3 (10.0-20.0); CALCIUM 8.4 MG/DL (8.5-10.1); CHLORIDE 103 MMOL/L (99-107); CREATININE 2.04 MG/DL (0.40-0.90); GLUCOSE 93 MG/DL (70-104); POTASSIUM 5.4 MMOL/L (3.5-5.1); SODIUM 136 MMOL/L (135-145); TOTAL CARBON DIOXIDE 26.4 MMOL/L (24-32); eCRCL 18 ML/MIN; eGFR 23 ML/MIN
[2023-07-20 00:59] LABS: ABG BASE EXCESS -5.4 mmol/L (-2.0-2.0); ABG HCO3 18.2 mmol/L (22.0-26.0); ABG OXYGEN SATURATION 95.7 % (94-97); ABG PCO2 (T) 29.2 mmHg (32.0-45.0); ABG PH (T) 7.411 (7.350-7.450); ABG PO2 (T) 78.4 mmHg (75.0-100.0); ALLEN'S TEST Modified; FCOHb 0.1 % (0.0-3.9); FHHb 4.3 % (0.0-5.0); FMetHb 0.2 % (0.0-1.5); FO2Hb 95.4 % (94-97); PATIENT TEMPERATURE 36.5; TOTAL HEMOGLOBIN 12.3 G/dl (12.0-16.0)
[2023-07-20] MEDS ORDERED: DOCU100C40 PO (01:16)
[2023-07-20] MEDS ORDERED: LYR75C PO (01:21)
[2023-07-20] MEDS ORDERED: CEFA1PIG IV (01:23)
[2023-07-20] MEDS ORDERED: ENOX40DI8 SQ (01:29)
[2023-07-20] MEDS ORDERED: LEVO100T PO (01:29)
[2023-07-20] MEDS ORDERED: BISO5TAB PO (01:29)
[2023-07-20 01:30] LABS: PRO BRAIN NATRIURETIC PEPTIDE 16927 PG/ML (0-450)
[2023-07-20] MEDS ORDERED: magnesium Cl slow-release 64mg tablet PO PRN (01:35)
[2023-07-20] MEDS ORDERED: acetaminophen 325mg tablet PO PRN (01:35)
[2023-07-20] MEDS ORDERED: magnesium 2GM in 50ml NS 50 ML IV PRN (01:35)
[2023-07-20] MEDS ORDERED: magnesium 4gm in 100ml NS 100 ML IV PRN (01:35)
[2023-07-20] MEDS ORDERED: potassium Cl 20 mEq SR tablet PO PRN ×2 (01:35)
[2023-07-20] MEDS ORDERED: ondansetron/PF 4mg/2ml inj IV PRN (01:35)
[2023-07-20] MEDS ORDERED: mag hydrox/Alum hydrox/simeth 30ml oral suspension PO PRN (01:35)
[2023-07-20] MEDS ORDERED: magnesium hydroxide 30ml (MOM) UD suspension PO PRN (01:35)
[2023-07-20] MEDS ORDERED: potassium Cl 40MEQ/1/2NS 520ml 520 ML IV PRN (01:35)
[2023-07-20] MEDS: furosemide 10 MG/1 ML 10ml inj IV ONE (02:18)
[2023-07-20] MEDS: cyanocobalamin 500mcg tablet PO SCH (02:30)
[2023-07-20] MEDS ORDERED: nitroGLYCERIN 0.4mg SUBLingual tab SL PRN (02:35)
[2023-07-20] MEDS ORDERED: albuterol 2.5 MG/3 ML nebule NEB PRN (02:50)
[2023-07-20 06:35] VITALS: TEMP 98
[2023-07-20] MEDS: furosemide 20 MG/2 ML vial IV SCH (07:25)
[2023-07-20] MEDS: atenolol 50mg tablet PO SCH (07:26)
[2023-07-20] MEDS: sacubitril/valsartan 24mg-26mg tablet PO SCH (07:27)
[2023-07-20] MEDS: docusate sod 100mg capsule PO SCH (07:48)
[2023-07-20] MEDS: atorvastatin 20mg tablet PO SCH (07:48)
[2023-07-20] MEDS: levoTHYROXINE 100mcg tablet PO SCH (07:48)
[2023-07-20] MEDS: K and/or MAG REPLACEMENT MC SCH (07:49)
[2023-07-20] MEDS: ferrous sulfate 325mg tablet PO SCH (07:49)
[2023-07-20] MEDS: pregabalin 75mg capsule PO SCH (07:49)
[2023-07-20 08:16] LABS: THYROID STIMULATING HORMONE 97.98 ulU/ml (0.34-4.50)
[2023-07-20 08:52] VITALS: BP 184/90; PULSE 50; RESP 14; O2SAT 96
[2023-07-20 09:14] LABS: FREE T4 (FREE THYROXINE) 0.64 NG/DL (0.73-1.40)
[2023-07-21] MEDS ORDERED: levoTHYROXINE 125mcg tablet PO SCH (08:00)
== END 2023-07-20 10:27 | DRG 70 ==
LOC: ER 22:50 → ED HOLD 07-20 01:34
PROVIDERS: ADMIT Internal Medicine; ATTEND Internal Medicine
DX: G93.41 Metabolic encephalopathy (principal); I50.33 Acute on chronic diastolic (congestive) heart failure; N17.0 Acute kidney failure with tubular necrosis; I13.0 Hypertensive heart and chronic kidney disease with heart failure and stage 1 through stage 4 chronic kidney disease, or unspecified chronic kidney disease; R64 Cachexia; E83.41 Hypermagnesemia; E03.9 Hypothyroidism, unspecified; E78.00 Pure hypercholesterolemia, unspecified; N18.9 Chronic kidney disease, unspecified; R09.02 Hypoxemia; D53.9 Nutritional anemia, unspecified; I73.9 Peripheral vascular disease, unspecified; I48.91 Unspecified atrial fibrillation; Z95.0 Presence of cardiac pacemaker; Z82.3 Family history of stroke; Z90.49 Acquired absence of other specified parts of digestive tract; Z83.1 Family history of other infectious and parasitic diseases; Z79.899 Other long term (current) drug therapy; Z68.26 Body mass index [BMI] 26.0-26.9, adult; Z95.2 Presence of prosthetic heart valve
CPT/HCPCS: 36415; 36600; 70450; 71045; 80048; 82803; 83605; 83735; 83880; 84132; 84145; 84439; 84443; 85018; 85025; 87040; 93005; 99285; A6213; G0378; J1940